=== PATIENT | female | born 1950 | race Caucasian/White ===

== ENCOUNTER → 2018-06-18 08:23 | Outpatient (CLI) | payer OTHER, SELFPAY ==
[2018-06-18 09:35] LABS: Add Manual Diff / Slide Review NO; Basophils Percent Auto 0.4 % (0-2); Eosinophils Percent Auto 2.9 % (2-4); Hematocrit 38.1 % (36-46); Hemoglobin 13.2 g/dL (12.0-16.0); Lymphocytes Percent Auto 31.5 % (25-40); Mean Corpuscular HGB Conc 34.7 % (30-36); Mean Corpuscular Hemoglobin 31.6 PG (26-34); Monocytes Percent Auto 7.3 % (3-14); Neutrophils Absolute Auto 2900 /uL (3000-5900); Neutrophils Percent Auto 57.9 % (50-75); Platelet Count 219 X10^3/uL (150-400); Red Blood Cell Count 4.19 X10^6/uL (4.0-5.2); Red Cell Distribution Width 12.4 % (11.6-14.8); White Blood Cell Count 4.9 X10^3/uL (4.5-11.0)
[2018-06-18 09:48] LABS: Alanine Aminotransferase 41 IU/L (9-52); Albumin 4.3 g/dL (3.5-5.0); Albumin Globulin Ratio 1.7 (1.0-2.8); Alkaline Phosphatase 67 U/L (38-126); Aspartate Aminotransferase 38 IU/L (14-36); Bilirubin Total 0.7 mg/dL (0.2-1.3); Blood Urea Nitrogen 22 mg/dL (7-17); Calcium 9.4 mg/dL (8.4-10.2); Carbon Dioxide 29 mmol/L (22-32); Chloride 106 mmol/L (98-107); Cholesterol 134 mg/dL (140-199); Estimated Glomerular Filt Rate 55.5 mL/min (>60); Globulin 2.5 g/dL (1.7-4.1); Glucose 102 mg/dL (80-110); HDL Cholesterol 41 mg/dL (40-60); HEMOLYSIS < 15 (0-50); LDL Cholesterol Calculated 72 mg/dL (<100); Potassium 3.6 mmol/L (3.4-5.1); Sodium 145 mmol/L (137-145); Total Protein 6.8 g/dL (6.3-8.2); Triglycerides 107 mg/dL (35-150)
[2018-06-18 10:32] LABS: TSH w/ Reflex to FT4 2.62 uIU/mL (0.47-4.68)
== END ==
PROVIDERS: PCP Internal Medicine; Visit Provider Internal Medicine
DX: I10 Essential (primary) hypertension (principal); E78.00 Pure hypercholesterolemia, unspecified; K21.0 Gastro-esophageal reflux disease with esophagitis
CPT/HCPCS: 36415; 80053; 80061; 84443; 85025

== ENCOUNTER → 2018-07-23 08:18 | Outpatient (CLI) | payer OTHER, SELFPAY ==
[2018-07-23 10:06] LABS: Alanine Aminotransferase 34 IU/L (9-52); Albumin 4.4 g/dL (3.5-5.0); Albumin Globulin Ratio 1.8 (1.0-2.8); Alkaline Phosphatase 68 U/L (38-126); Aspartate Aminotransferase 30 IU/L (14-36); Bilirubin Total 0.7 mg/dL (0.2-1.3); Bilirubin Unconjugated 0.5 mg/dL (0.0-1.1); Globulin 2.4 g/dL (1.7-4.1); HEMOLYSIS < 15 (0-50); Total Protein 6.8 g/dL (6.3-8.2)
== END ==
PROVIDERS: Family Provider Internal Medicine; PCP Internal Medicine; Visit Provider Internal Medicine
DX: R74.8 Abnormal levels of other serum enzymes (principal)
CPT/HCPCS: 36415; 80076

== ENCOUNTER → 2018-07-27 09:58 | Outpatient (CLI) | payer OTHER, SELFPAY ==
--- NOTE | 2018-07-27 | DI.RAD.S_ITS ---
PROCEDURE: XR HIP W PEL IF DONE BILAT 2V INDICATIONS: PAIN IN HIP TECHNIQUE: AP pelvis with lateral view(s) of the left and right hip(s). COMPARISON: None. FINDINGS: Bones: No fractures or dislocations. Pelvic ring appears intact. No suspicious bony lesions. Hip joints are well-maintained. Soft tissues: The visualized bowel gas pattern is normal. No suspicious soft tissue calcifications. IMPRESSION: No definite radiographic abnormality. If pain persists, consider cross sectional imaging such as CT or MRI for further assessment. Dictated by: Santo CASTANEDA Interpreted: Kaleigh Shin MD on 07/27/2018 at 10:38 Approved by: Kaleigh Shin M.D. on 07/27/2018 at 14:40
== END ==
PROVIDERS: Family Provider Physical Therapist; PCP Internal Medicine; Visit Provider Internal Medicine
DX: M25.559 Pain in unspecified hip (principal)
CPT/HCPCS: 73521

== ENCOUNTER → 2018-08-08 12:45 | Outpatient (CLI) | payer OTHER, SELFPAY ==
--- NOTE | 2018-08-08 | DI.MRI.S_ITS ---
PROCEDURE: MR LUMBAR SPINE WO CON INDICATIONS: LUMBAR STENOSIS TECHNIQUE: Noncontrast sagittal T1 spin echo and T2 fast echo, sagittal STIR, axial T1 and T2 fast spin echo through the lumbar spine. In cases with scoliosis, additional coronal T2 fast spin echo may be performed. COMPARISON: None. FINDINGS: Image quality: Excellent. Alignment and Curvature: No plain films are available for comparison, for numbering purposes. Thus, for the purposes of this examination, 5 lumbar type vertebral bodies will be presumed, as denoted on the montage panel. This should be confirmed and correlated with plain films, prior to any lumbar spinal intervention. Bone Marrow: Marrow is of normal overall signal. No acute vertebral body compression fractures. Spinal Cord: Conus medullaris terminates at the upper L2 level. Visualized cord demonstrates normal signal and size. Paraspinous Soft Tissues: No paravertebral masses. Bilateral parapelvic renal cysts are present. L1-L2: Mild disc desiccation. Mild bilateral facet hypertrophy. No significant canal, nor foraminal stenosis. L2-L3: Mild disc desiccation. Mild bilateral facet hypertrophy. No significant canal, nor foraminal stenosis. L3-L4: Mild disc desiccation. Mild bilateral facet hypertrophy. No significant canal, nor foraminal stenosis. L4-L5: Mild disc desiccation. Mild bilateral facet hypertrophy. No significant canal, nor foraminal stenosis. L5-S1: Mild disc desiccation and diffuse disc bulge. Mild bilateral facet hypertrophy. No significant canal, nor foraminal stenosis. IMPRESSION: 1. Multilevel degenerative disc and facet disease, causing no significant canal, nor foraminal stenosis. No neural impingement. 2. 5 lumbar type vertebral bodies were presumed for the current report. Plain films of the lumbar spine are recommended for confirmation, prior to any lumbar spinal intervention. Dictated by: Chasity Silva M.D. on 08/08/2018 at 14:29 Approved by: Chasity Silva M.D. on 08/08/2018 at 14:31
== END ==
PROVIDERS: PCP Internal Medicine; Visit Provider Internal Medicine
DX: M51.36 Other intervertebral disc degeneration, lumbar region (principal); N28.1 Cyst of kidney, acquired
CPT/HCPCS: 72148

== ENCOUNTER → 2018-12-22 08:18 | Outpatient (CLI) | payer OTHER, SELFPAY ==
--- NOTE | 2018-12-22 | DI.MG.S_ITS ---
BILATERAL DIGITAL SCREENING MAMMOGRAM 3D/2D WITH CAD: 12/22/2018 CLINICAL: Routine screening. Family history of breast cancer. Comparison is made to exams dated: 12/07/2017 mammogram - [facility] and 03/20/2015 mammogram - [facility]. The tissue of both breasts is heterogeneously dense. This may lower the sensitivity of mammography. Current study was also evaluated with a Computer Aided Detection (CAD) system. There are benign post operative findings in the left breast. There is a mole marker on the right breast. No significant masses, calcifications, or other findings are seen in either breast. There has been no significant interval change. IMPRESSION: There is no mammographic evidence of malignancy. A 1 year screening mammogram is recommended. This exam was interpreted at Station ID: [id number]. NOTE: For mammograms, a report in lay terms will be sent to the patient. Approximately 15% of breast malignancies will not be visualized mammographically. In the management of a palpable breast mass, a negative mammogram must not discourage biopsy of a clinically suspicious lesion. Electronically Signed By: Imtiaz oliver/ritu:12/24/2018 10:26:42 letter sent: Normal Exam ACR BI-RADS Category 2: Benign Finding(s) 3342F
== END ==
PROVIDERS: PCP Internal Medicine; Visit Provider Internal Medicine
DX: Z12.31 Encounter for screening mammogram for malignant neoplasm of breast (principal); Z80.3 Family history of malignant neoplasm of breast
CPT/HCPCS: 77063; 77067

== ENCOUNTER → 2019-05-15 08:05 | Outpatient (CLI) | payer OTHER, SELFPAY ==
[2019-05-15 08:51] LABS: Alanine Aminotransferase 41 IU/L (9-52); Albumin 4.3 g/dL (3.5-5.0); Albumin Globulin Ratio 1.7 (1.0-2.8); Alkaline Phosphatase 83 U/L (38-126); Aspartate Aminotransferase 33 IU/L (14-36); Bilirubin Total 0.9 mg/dL (0.2-1.3); Blood Urea Nitrogen 25 mg/dL (7-17); Carbon Dioxide 26 mmol/L (22-32); Chloride 104 mmol/L (98-107); Cholesterol 195 mg/dL (140-199); Estimated Glomerular Filt Rate 55.3 mL/min (>60); Globulin 2.6 g/dL (1.7-4.1); Glucose 110 mg/dL (80-110); HDL Cholesterol 59 mg/dL (40-60); HEMOLYSIS < 15 (0-50); LDL Cholesterol Calculated 101 mg/dL (<100); Potassium 4.5 mmol/L (3.4-5.1); Sodium 140 mmol/L (137-145); Total Protein 6.9 g/dL (6.3-8.2); Triglycerides 173 mg/dL (35-150)
== END ==
PROVIDERS: PCP Internal Medicine; Visit Provider Internal Medicine
DX: I10 Essential (primary) hypertension (principal); E78.00 Pure hypercholesterolemia, unspecified; M15.0 Primary generalized (osteo)arthritis
CPT/HCPCS: 36415; 80053; 80061

== ENCOUNTER → 2020-01-20 10:47 | Outpatient (CLI) | payer OTHER, SELFPAY ==
[2020-01-20 12:02] LABS: BUN Creatinine Ratio 24.6 (6-22); Blood Urea Nitrogen 30 mg/dL (7-17); Calcium 9.5 mg/dL (8.4-10.2); Carbon Dioxide 26 mmol/L (22-32); Chloride 103 mmol/L (98-107); Estimated Glomerular Filt Rate 43.8 mL/min (>60); Glucose 105 mg/dL (80-110); HEMOLYSIS < 15 (0-50); Potassium 3.7 mmol/L (3.4-5.1); Sodium 137 mmol/L (137-145)
== END ==
PROVIDERS: PCP Internal Medicine; Referring Provider Student in an Organized Health Care Education/Training Program; Visit Provider Student in an Organized Health Care Education/Training Program
DX: I10 Essential (primary) hypertension (principal)
CPT/HCPCS: 36415; 80048

== ENCOUNTER → 2020-02-27 14:26 | Outpatient (CLI) | payer OTHER, SELFPAY ==
--- NOTE | 2020-02-27 | DI.MG.S_ITS ---
BILATERAL DIGITAL SCREENING MAMMOGRAM 3D/2D WITH CAD: 02/27/2020 CLINICAL: Routine screening. Family history of breast cancer. Comparison is made to exams dated: 12/07/2017 mammogram - [facility], 03/20/2015 mammogram - [facility], and 12/22/2018 mammogram - [facility]. The tissue of both breasts is heterogeneously dense. This may lower the sensitivity of mammography. Current study was also evaluated with a Computer Aided Detection (CAD) system. There are benign post operative findings in the left breast. No significant masses, calcifications, or other findings are seen in either breast. There has been no significant interval change. IMPRESSION: There is no mammographic evidence of malignancy. A 1 year screening mammogram is recommended. This exam was interpreted at Station ID: [id number]. NOTE: For mammograms, a report in lay terms will be sent to the patient. Approximately 15% of breast malignancies will not be visualized mammographically. In the management of a palpable breast mass, a negative mammogram must not discourage biopsy of a clinically suspicious lesion. Electronically Signed By: Mansoor lewis/ritu:02/27/2020 15:05:34 copy to: Carmencita Ordaz letter sent: Normal Exam ACR BI-RADS Category 2: Benign Finding(s) 3342F
[2020-02-27 17:42] LABS: BUN Creatinine Ratio 19.7 (6-22); Blood Urea Nitrogen 25 mg/dL (7-17); Calcium 9.7 mg/dL (8.4-10.2); Carbon Dioxide 27 mmol/L (22-32); Chloride 102 mmol/L (98-107); Estimated Glomerular Filt Rate 41.8 mL/min (>60); Glucose 88 mg/dL (80-110); HEMOLYSIS < 15 (0-50); Potassium 3.9 mmol/L (3.4-5.1); Sodium 138 mmol/L (137-145)
== END ==
PROVIDERS: PCP Internal Medicine; Referring Provider Internal Medicine; Visit Provider Internal Medicine
DX: Z12.31 Encounter for screening mammogram for malignant neoplasm of breast (principal); Z80.3 Family history of malignant neoplasm of breast; I10 Essential (primary) hypertension
CPT/HCPCS: 36415; 77063; 77067; 80048

== ENCOUNTER → 2021-03-02 10:48 | Outpatient (CLI) | payer OTHER, SELFPAY ==
--- NOTE | 2021-03-02 | DI.MG.S_ITS ---
BILATERAL DIGITAL SCREENING MAMMOGRAM 3D/2D WITH CAD: 03/02/2021 CLINICAL: Routine screening. Family history of breast cancer. Comparison is made to exams dated: 02/27/2020 mammogram, 12/22/2018 mammogram, and 12/07/2017 mammogram - [facility]. The tissue of both breasts is heterogeneously dense. This may lower the sensitivity of mammography. Current study was also evaluated with a Computer Aided Detection (CAD) system. There are benign post operative findings in the left breast. No significant masses, calcifications, or other findings are seen in either breast. There has been no significant interval change. IMPRESSION: BENIGN There is no mammographic evidence of malignancy. A 1 year screening mammogram is recommended. This exam was interpreted at Station ID: [id number]. NOTE: For mammograms, a report in lay terms will be sent to the patient. Approximately 15% of breast malignancies will not be visualized mammographically. In the management of a palpable breast mass, a negative mammogram must not discourage biopsy of a clinically suspicious lesion. Electronically Signed By: Florian melo/ritu:03/02/2021 14:44:48 copy to: Carmencita Ordaz letter sent: Normal Exam ACR BI-RADS Category 2: Benign Finding(s) 3342F
== END ==
PROVIDERS: PCP Internal Medicine; Referring Provider Internal Medicine; Visit Provider Internal Medicine
DX: Z12.31 Encounter for screening mammogram for malignant neoplasm of breast (principal)
CPT/HCPCS: 77063; 77067

== ENCOUNTER → 2021-03-03 09:38 | Outpatient (CLI) | payer OTHER, SELFPAY | PROVIDERS: PCP Student in an Organized Health Care Education/Training Program; Referring Provider Student in an Organized Health Care Education/Training Program; Visit Provider Student in an Organized Health Care Education/Training Program | DX: N95.9 Unspecified menopausal and perimenopausal disorder (principal) | CPT/HCPCS: 77080 ==

== ENCOUNTER → 2021-12-23 09:57 | Outpatient (CLI) | payer OTHER, SELFPAY ==
--- NOTE | 2021-12-23 10:55 | DI.CT.S_ITS ---
PROCEDURE: CT ABDOMEN PELVIS W CON INDICATIONS: Nausea TECHNIQUE: After the administration of oral and IV contrast, axial sections were acquired from the lung bases to the pubic symphysis. Coronal and sagittal reformats were performed. For radiation dose reduction, the following was used: automated exposure control, adjustment of mA and/or kV according to patient size. COMPARISON: None. FINDINGS: Image quality: Excellent. Lung bases: Lung bases are clear. Small hiatal hernia. Heart: No significant findings. ABDOMEN: Liver: Normal in size. Mild hepatic steatosis. Gallbladder: Unremarkable. Biliary ducts: Unremarkable. Pancreas: Unremarkable. Spleen: Unremarkable. Adrenal Glands: Unremarkable. Kidneys and Ureters: There is bilateral renal cortical thinning. There are innumerable ill-defined tiny low-density nodules are seen in kidneys, most likely cyst. There is a 3 mm nonobstructive stone in left kidney. Parapelvic renal cysts are likely present no ureteral stones. No definitive hydronephrosis. Stomach and Bowel: There is gastric antral thickening Small bowel loops, and colon are normal in caliber. Diverticulosis without diverticulitis. Peritoneum: No abnormal intraperitoneal fluid. No free air. Ventral Wall: No hernia. Abdominal Nodes: No retroperitoneal or mesenteric adenopathy by size criteria. Vessels: Aorta and inferior vena cava are normal in size. PELVIS: Pelvic Organs: Hysterectomy. Ovaries are not visualized. No free fluid in pelvis. Bladder: Unremarkable. Pelvic Nodes: No enlarged lymph nodes. Miscellaneous: No inguinal hernias are seen. Bones: Unremarkable. IMPRESSION: 1. There is gastric antral thickening. The finding may be secondary to peptic ulcer disease, gastritis or artifact related to peristalsis. 2. Bilateral renal cortical thinning. There are innumerable ill-defined tiny low-density nodules are seen in kidneys, probably tiny renal cysts. There are parapelvic renal cysts bilaterally. 3. A 3 mm nonobstructive stone in left kidney. No hydronephrosis. 4. Hepatic steatosis. 5. Diverticulosis without diverticulitis. 6. Small hiatal hernia. Dictated by: Rajesh Salcedo M.D. on 12/23/2021 at 13:39 Approved by: Rajesh Salcedo M.D. on 12/23/2021 at 16:45
== END ==
PROVIDERS: PCP Student in an Organized Health Care Education/Training Program; Referring Provider Student in an Organized Health Care Education/Training Program; Visit Provider Student in an Organized Health Care Education/Training Program
DX: N20.0 Calculus of kidney (principal); N28.1 Cyst of kidney, acquired; K57.90 Diverticulosis of intestine, part unspecified, without perforation or abscess without bleeding; K44.9 Diaphragmatic hernia without obstruction or gangrene; K76.0 Fatty (change of) liver, not elsewhere classified; R11.0 Nausea; E87.6 Hypokalemia; I10 Essential (primary) hypertension; R14.0 Abdominal distension (gaseous)
CPT/HCPCS: 74177; Q9967

== ENCOUNTER → 2022-05-14 09:07 | Outpatient (CLI) | payer OTHER, SELFPAY ==
--- NOTE | 2022-05-14 | DI.MG.S_ITS ---
BILATERAL DIGITAL SCREENING MAMMOGRAM 3D/2D WITH CAD: 05/14/2022 CLINICAL: Routine screening. Family history of breast cancer. Comparison is made to exams dated: 03/02/2021 mammogram, 02/27/2020 mammogram, and 12/22/2018 mammogram - [facility]. The tissue of both breasts is heterogeneously dense. This may lower the sensitivity of mammography. Current study was also evaluated with a Computer Aided Detection (CAD) system. There are benign post operative findings in the left breast. No significant masses, calcifications, or other findings are seen in either breast. There has been no significant interval change. IMPRESSION: BENIGN There is no mammographic evidence of malignancy. A 1 year screening mammogram is recommended. Based on the Tyrer Cuzick model (a risk assessment model) the patient's lifetime risk is 6.7% and her 10 year risk is 4.2%. According to the ACR, ACS, and NCCN guidelines, an annual breast MRI exam along with mammogram is recommended if the patient's lifetime risk is 20% or greater. This exam was interpreted at Station ID: [id number]. NOTE: For mammograms, a report in lay terms will be sent to the patient. Approximately 15% of breast malignancies will not be visualized mammographically. In the management of a palpable breast mass, a negative mammogram must not discourage biopsy of a clinically suspicious lesion. Electronically Signed By: Renee bell/ritu:05/16/2022 08:11:13 letter sent: Normal Exam ACR BI-RADS Category 2: Benign Finding(s) 3342F
== END ==
PROVIDERS: PCP Student in an Organized Health Care Education/Training Program; Referring Provider Student in an Organized Health Care Education/Training Program; Visit Provider Student in an Organized Health Care Education/Training Program
DX: Z12.31 Encounter for screening mammogram for malignant neoplasm of breast (principal); Z80.3 Family history of malignant neoplasm of breast
CPT/HCPCS: 77063; 77067

== ENCOUNTER → 2022-06-20 09:05 | Outpatient (CLI) | payer OTHER, SELFPAY ==
[2022-06-20 12:56] LABS: COVID19 -Nasal RAPID Negative (Negative)
== END ==
PROVIDERS: PCP Student in an Organized Health Care Education/Training Program; Visit Provider Surgery
DX: Z01.812 Encounter for preprocedural laboratory examination (principal); Z20.822 Contact with and (suspected) exposure to COVID-19
CPT/HCPCS: 87635; C9803

== ENCOUNTER 2022-06-21 07:23 | Day surgery (SDC) | payer OTHER, SELFPAY ==
[2022-06-21 07:38] VITALS: BMI 24.5
[2022-06-21] MEDS: LACTATED RINGERS 1,000 ML 200 ML IV (07:50)
[2022-06-21 07:51] VITALS: BP 130/69; PULSE 67; RESP 16; TEMP 36.6; O2SAT 98
--- NOTE | 2022-06-21 08:32 | PM.HP.1 ---
History of Present Illness History of Present Illness Date Patient Seen: 06/21/22 Time Patient Seen: 08:32 Chief complaint: Colonoscopy Narrative: The patient presents for colorectal screening. Previous colonoscopy approximately 5 years ago did demonstrate benign polyps. Family history significant for father who had colon cancer.. She has recently been experiencing some abdominal bloating no ron pain no blood per rectum small unintentional weight loss. Patient History Surgical History History of hysterectomy Family & Social History Social History: household members spouse Tobacco & Substance use: Smoking Status Never smoker alcohol intake current alcohol intake frequency a few times a week Substance Use Type does not use Meds Home Medications and Allergies Home Medications Medication Instructions Recorded Confirmed Type hydrochlorothiazide 25 mg tablet 12.5 mg PO QDAY ##0 07/17/17 06/21/22 History potassium chloride 8 mEq 10 meq PO DAILY ##0 07/17/17 06/21/22 History tablet,extended release (Klor-Con) rosuvastatin 10 mg tablet (Crestor) 10 mg PO DAILY ##0 07/17/17 06/21/22 History estradiol 0.5 mg tablet 0.5 mg PO DAILY 06/21/22 06/21/22 History losartan 50 mg tablet 50 mg PO DAILY 06/21/22 06/21/22 History metronidazole 0.75 % topical cream 1 applic topical BID 06/21/22 06/21/22 History Allergies Allergy/AdvReac Type Severity Reaction Status Date / Time Sulfa (Sulfonamide Allergy Intermediate GENERAL Verified 06/21/22 07:35 Antibiotics) ILL FEELING [SULFA (SULFONAMIDE ANTIBIOTICS)] Exam Vital Signs (past 8 hours): - 06/21/22 07:51 Temperature 97.9 F Pulse Rate 67 Respiratory Rate 16 Blood Pressure 130/69 Pulse Oximetry 98 Oxygen Delivery Method Room Air Oxygen Delivery Method Room Air Narrative Exam Narrative: General adult woman alert oriented no acute distress Assessment & Plan Assessment & Plan narrative: The patient requires colorectal screening and colonoscopy is recommended. Technical details were discussed. Risks, benefits, alternatives explained. Risks including but not limited to myocardial infarction, aspiration, bleeding, pain, missed lesion, incomplete examination, need for further radiographic studies, colonic perforation, and need for major abdominal surgery were discussed. All questions were answered to their satisfaction, and they are in agreement with this plan. Time Spent With Patient Critical Care time: I spent a total of [] minutes of critical care time on this patient's care today; this time is exclusive of procedural time.
[2022-06-21] MEDS: fentaNYL 100 MCG/2 ML INJ 150 MCG IV (08:39)
[2022-06-21] MEDS: MIDAZOLAM 5 MG/5 ML VIAL IV (08:45)
--- NOTE | 2022-06-21 08:55 | P.OP.COLON_ITS ---
Operative Date/Time/Diagnoses Date of procedure: 06/21/22 Time of procedure: 08:55 Pre-op diagnosis: Screening Post-op diagnosis: other (Colonic stricture) Procedure & Clinicians Study performed: Sigmoidoscopy Same procedure as scheduled: No Indications: 71-year-old woman here for screening colonoscopy. Family history of colon cancer in first-degree relative. Recent bloating. Procedure Notes Procedure in detail: Medications: Conscious sedation using 5mg IV midazolam and 150mcg IV of fentanyl The history and physical was performed/updated and the patient is ASA class is 2. The procedure was discussed in detail with the patient. Potential risks complications including infection, bleeding, missed diagnosis, perforation, need for surgery, and were explained. Their questions were answered and informed consent was obtained. Patient was brought to the procedure room and placed standard monitoring equipment. The patient's vital signs were monitored continuously throughout the entire procedure. Prior to starting time-out was performed. The patient was placed in the left lateral recumbent position. Procedural sedation was administered. Examination began with a thorough inspection of the perianal area there was no evidence of fissures, fistulae, external hemorrhoids or cutaneous malignancy. The colonoscopy scope was then placed into the anal canal and was advanced forward. There was noted diverticular disease within the sigmoid co israel. Approaching 40 cm from the anal verge, the colon became quite narrow and no further safe progress could be made beyond 40 cm. The distal extent of the exam was marked with tattoo. The scope was carefully withdrawn there were no masses identified. Specimen(s): none sent Complications: none Impression: Colonic stricture Post-procedure Plan for aftercare: Barium enema Disposition: same day surgery
[2022-06-21 08:57] VITALS: BP 117/66; PULSE 72; RESP 11; TEMP 36.4; O2SAT 95
[2022-06-21 09:02] VITALS: BP 107/58; PULSE 65; RESP 11; O2SAT 94
[2022-06-21 09:12] VITALS: BP 116/63; PULSE 71; RESP 12; O2SAT 96
[2022-06-21 09:17] VITALS: BP 119/62; PULSE 71; RESP 13; O2SAT 97
== END 2022-06-21 09:35 | disposition home or self-care (01) ==
PROVIDERS: PCP Student in an Organized Health Care Education/Training Program; Referring Provider Surgery; Visit Provider Surgery
PROC: 0DJD8ZZ Inspection of Lower Intestinal Tract, Via Natural or Artificial Opening Endoscopic (ICD-10-PCS; CPT 45378; principal; 2022-06-21 08:30)
DX: Z12.11 Encounter for screening for malignant neoplasm of colon (principal); Z80.0 Family history of malignant neoplasm of digestive organs; K56.699 Other intestinal obstruction unspecified as to partial versus complete obstruction
CPT/HCPCS: 45335; J2250; J3010

== ENCOUNTER → 2022-07-20 09:33 | Outpatient (CLI) | payer OTHER, SELFPAY ==
--- NOTE | 2022-07-20 09:34 | DI.RAD.S_ITS ---
PROCEDURE: FL BARIUM ENEMA INDICATIONS: r/o colonic stricture. Incomplete colonoscopy COMPARISON: None. FINDINGS: KUB: Preprocedural inspector and hand packager film demonstrates a normal bowel gas pattern. No suspicious abdominal calcifications. Visualized solid organ contours appear normal in size. No suspicious bony lesions. Colon: Post evacuation film demonstrates two areas of narrowing in the proximal sigmoid colon which were also present during the filling phase. These have a non shouldered appearance suggestive of a possible stricture as opposed to mass, although an underlying small lesion cannot be strictly excluded. Extensive sigmoid and ascending colonic diverticulosis. IMPRESSION: Extensive sigmoid and ascending colonic diverticulosis. Tortuous and redundant sigmoid colon, with two areas of potential stricture or narrowing on the post evacuation film in the proximal sigmoid colon. Consider repeat colonoscopy versus CT colonography for further evaluation. Dictated by: Jose Agarwal M.D. on 07/20/2022 at 15:24 Approved by: Jose Agarwal M.D. on 07/20/2022 at 15:29
== END ==
PROVIDERS: PCP Student in an Organized Health Care Education/Training Program; Referring Provider Surgery; Visit Provider Surgery
DX: Z12.11 Encounter for screening for malignant neoplasm of colon (principal); K57.30 Diverticulosis of large intestine without perforation or abscess without bleeding
CPT/HCPCS: 74270

== ENCOUNTER → 2022-10-11 09:13 | Outpatient (CLI) | payer OTHER, SELFPAY ==
[2022-10-11 11:36] LABS: COVID19 -Nasal RAPID Negative (Negative)
== END ==
PROVIDERS: PCP Student in an Organized Health Care Education/Training Program; Visit Provider Surgery
DX: Z01.812 Encounter for preprocedural laboratory examination (principal); Z20.822 Contact with and (suspected) exposure to COVID-19
CPT/HCPCS: 87635

== ENCOUNTER 2022-10-12 06:32 | Inpatient (IN) | payer OTHER, SELFPAY ==
[2022-10-04 09:48] VITALS: BMI 24.9
[2022-10-12] VITALS (14 sets, daily range): BP systolic 89–144; BP diastolic 45–70; PULSE 73–98; RESP 11–20; TEMP 36.1–36.8; O2SAT 91–100; BMI 24.9
--- NOTE | 2022-10-12 | PATH_ITS ---
[facility] Accession Number: [id number] No. of containers..02 Tissue . 01 Material submitted: . PART A: colon - SIGMOID COLON PART B: anastomosis - ANASTOMOTIC DONUT . 01 Clinical history: . LAB ASSIST COLECTOMY . 01 Diagnosis: A. Sigmoid Colon, Segmental Resection: Colonic segment with prominent folds and diverticulosis. Negative for active, chronic and microscopic colitis. Negative for dysplasia and malignancy. . B. Anastomotic Donut: Colon with patchy mucosal ischemia-type changes. Negative for dysplasia and malignancy. MR 10/14/2022 1519 Local . 01 Electronically signed: . Love Blackwood MD, Pathologist NPI- [id number] . 01 Gross description: . A. Received in formalin labeled with the patient's name, and sigmoid colon, stitch marked proximal end, and consists of a previously opened segment of colon with a stitch at one end designating proximal per the requisition. The specimen measures 12.1 cm in length by 3.5 cm in average circumference. The visible serosa is chan and smooth with no grossly identified perforations with a moderate amount of attached adipose measuring out to 4.4 cm. The proximal margin is inked blue, the distal margin is inked black, and the mesenteric margin is inked green. Due to the specimen being previously opened, no areas of luminal obstruction are grossly identified; however, there is an area of narrowing approximately 4.5 cm from the distal margin. The mucosa is significant for a chan raised firm area measuring 1.2 x 0.8 cm and is widely free from all margins. Sectioning reveals the aforementioned nodule to appear to be a prominent fold. The remaining mucosa is chan and velvety with normal appearing folds and multiple diverticula measuring up to 0.8 cm in depth, most numerous near the distal margin. No additional polyps or lesions are identified. The damon average 0.3 cm thick. Palpation of the pericolonic fat reveals three chan lymph node candidates ranging from 0.3 to 0.5 cm in greatest dimension. Crate Liner sections are submitted as follows: A1: Proximal margin en face. A2: Distal margin en face. A3: Crate Liner radial margin en face. A4: Prominent fold. A5: Crate Liner diverticula. A6: Normal mucosa. A7: Three intact lymph node candidates. B. Received in formalin labeled with the patient's name, and anastomotic donut, and consists of a circular fragment of colon measuring 2.3 x 2.2 x 0.8 cm. A purple stitch is located at one edge with no designation per the requisition. The mucosa is chan and erythematous with no lesions grossly identified. Crate Liner sections are submitted in cassette B1. ([id number]) /MRV 10/13/2022 123 Local . 01 Pathologist provided ICD-10: K56.699 . 01 CPT . 197416, [id number] Specimen Comment: A courtesy copy of this report has been sent to [phone] Performed at: 01 [facility] [address] [place] [address] [address] [facility], [place], [place] [id number] MD Florian Treviño MD Phone: [phone]
[2022-10-12] MEDS: LACTATED RINGERS 1,000 ML 100 ML IV ×3 (07:38→11:58)
--- NOTE | 2022-10-12 07:45 | PM.PREOP ---
Pre-operative Note Interval Note History & Physical reviewed/Exam performed by Physician: Yes Changes to H&P: No
[2022-10-12] MEDS: levoFLOXacin 500 MG/100 ML PIGGYBACK 100 MG IV (08:05)
[2022-10-12] MEDS: BUPIVACAINE 0.5% W/ EPI (PF) 30 ML VIAL INJ (08:31)
--- NOTE | 2022-10-12 08:34 | SUR.OPER ---
Lithotomy on padded OR bed. Starks Pad Positioner under torso. Head on pillow, arms padded and tucked at sides. Legs secured in padded yellow fins stirrups.
[2022-10-12] MEDS: BUPIVACAINE LIPOSOME 266 MG/20 ML VIAL INJ (10:22)
--- NOTE | 2022-10-12 10:59 | P.OP_ITS ---
Operative Date/Time/Diagnoses Date of procedure: 10/12/22 Time of procedure: 10:59 Pre-op diagnosis: diverticular stricture Post-op diagnosis: same Procedure & Clinicians Procedure: laparoscopic assisted sigmoid colectomy Same procedure as scheduled: Yes Indications: diverticular stricture Surgeon: Ismael Gilbert Electrical Prospecting Supervisor: Ericka Leahy Anesthesia Type: General Operative Notes Findings: Negative leak test. No evidence of malignancy Specimen(s): other (sigmoid colon proximal end with stitch. Anastamotic donouts) Estimated Blood Loss (mL): 20 Procedure in detail: The patient was brought to the operating room and placed supine on the table. Bilateral lower extremity compression devices were applied. General anesthesia was induced and they were intubated with an endotracheal tube. They were placed in the lithotomy position and prepped and draped in sterile fashion. A smith catheter was placed under sterile condition. They received Levaquin prior to skin incision. Time-out was performed. An infraumbilical 1 cm incision was made, the umbilical stalk was elevated, the fascia was sharply incised and the abdomen was entered atraumatically. Pneumoperitoneum was established. The laparoscope was inserted into the abdomen, inspection was made there was no evidence of injury upon entry. 5 mm ports were placed suprapubic, right upper quadrant and a 12 mm trocar in the right lower quadrant. There were significant adhesions between the the sigmoid colon and the left pelvic sidewall which was causing external compression of the colon and were divided with with electrocautery. A lateral to medial approach was begun. Dissection was continued superiorly along the white line of Toldt to the splenic flexure. The left ureter was clearly identified by its vermiculation. The sigmoid mesocolon was then divided with electrocautery staying close to the colon with the ureter kept posteriorly out of harm's way. The proximal point of colonic division was chosen and the junction between the descending colon and sigmoid colon where the tissue was soft and pliable. The mesentery at this point was skeletonized to the level of bowel wall. The colon was divided with the TA stapler with a bowel staple load. The distal point of transection was the rectosigmoid junction where the bowel was soft and pliable near the convergence of the tenia. The distal transection was made with TA stapler with a bowel staple load. The specimen was passed off the field labeled sigmoid colon proximal end was marked with a silk suture. Sigmoid colon was opened on the back table and there was no evidence of malignancy within it there was an area of stricture noted. A bowel clamp was placed carefully over the proximal colon and the staple line was excised. A 3-0 Prolene suture was pursestrung and a 29 mm EEA anvil was placed. The abdomen was then reinflated and the anvil and stapler were mated under direct visualization and the anastomosis was completed without tension. The stapler was removed and inspection of the anastomotic donuts demonstrated a normal proximal and distal doughnut. The proximal bowel was occluded, the pelvis filled with saline and insufflation of the rectum demonstrated no leak. The abdomen was copiously irrigated and hemostasis checked. The midline fascia was closed with #1 PDS running fashion. The subcutaneous tissues were reapproximated using 3 0 Vicryl, skin closed with 3-0 Monocryl. The fascia of the 12 mm trocar site in the right lower quadrant was closed with 0 Vicryl in figure 8 fashion. The laparoscopic port incisions were closed with 4-0 Monocryl. The skin was sealed with Dermabond. The sponge instrument count at the end of the operation was correct. The patient emerged from general anesthesia, extubated and transferred to the postoperative care unit in stable condition. The assistance of Dr. Leahy was necessary for adequate surgical exposure and the creation of the anastomosis. Complications: none Post-operative Condition: stable Disposition: Acute Care
--- NOTE | 2022-10-12 11:26 | SUR.PHASEI ---
Report called to [facility].
--- NOTE | 2022-10-12 11:43 | PC.NURSE ---
Day shift: Pt in room from PACU at approx 1145. VS WNL. Ra 94%. Encouraged to use I.S. as directed. Pt is A&Ox4. Reports ABD pain 2/. Oriented to room and call light. AGrees to not get OOB w/o help from staff. Bed alarm is on.
[2022-10-12] MEDS: PIPERACILLIN/TAZO 3.375 GM in SODIUM CHLORIDE 0.9% 100 ML IV ×2 (12:10→19:59)
[2022-10-12] MEDS: SODIUM CHLORIDE 0.9% 1,000 ML 100 ML IV ×2 (15:15→21:52)
--- NOTE | 2022-10-12 17:14 | PT-IP ANOTE ---
PT haley received. EMR reviewed. checked on pt and pt refused PT. stated that she is not ready and not able to think right at this time. pt agreed to provide PLOF and home set up.
[2022-10-12] MEDS: ACETAMINOPHEN 325 MG TABLET 650 MG PO (19:58)
[2022-10-12] MEDS: OXYCODONE IR 5 MG TABLET PO ×2 (19:59→23:17)
[2022-10-13] MEDS: PIPERACILLIN/TAZO 3.375 GM in SODIUM CHLORIDE 0.9% 100 ML IV (03:21)
[2022-10-13] MEDS: ACETAMINOPHEN 325 MG TABLET 650 MG PO ×3 (03:30→17:07)
[2022-10-13 06:05] VITALS: BP 123/50; PULSE 65; RESP 16; TEMP 36.3; O2SAT 93
[2022-10-13 08:01] LABS: Add Manual Diff / Slide Review NO; Basophils Absolute Auto 0 /uL (0-100); Basophils Percent Auto 0.1 % (0-2); Eosinophils Absolute Auto 0 /uL (0-450); Hematocrit 33.1 % (36-46); Hemoglobin 11.5 g/dL (12.0-16.0); Lymphocytes Absolute Auto 700 /uL (1100-4500); Lymphocytes Percent Auto 5.4 % (25-40); Mean Corpuscular HGB Conc 34.6 % (30-36); Mean Corpuscular Hemoglobin 31.4 PG (26-34); Mean Corpuscular Volume 90.9 fL (80-100); Monocytes Absolute Auto 700 /uL (0-900); Monocytes Percent Auto 5.4 % (3-14); Neutrophils Absolute Auto 12100 /uL (1500-7000); Neutrophils Percent Auto 89.1 % (50-75); Platelet Count 195 X10^3/uL (150-400); Red Blood Cell Count 3.65 X10^6/uL (4.0-5.2); Red Cell Distribution Width 12.8 % (11.6-14.8); White Blood Cell Count 13.5 X10^3/uL (4.5-11.0)
[2022-10-13 08:16] LABS: BUN Creatinine Ratio 12.8 (6-22); Blood Urea Nitrogen 16 mg/dL (7-17); Calcium 7.9 mg/dL (8.4-10.2); Carbon Dioxide 20 mmol/L (22-32); Chloride 109 mmol/L (98-107); Estimated Glomerular Filt Rate 46 mL/min (>60); Glucose 108 mg/dL (80-110); HEMOLYSIS < 15 (0-50); Sodium 140 mmol/L (137-145)
--- NOTE | 2022-10-13 08:41 | CM.DANOTE ---
Initial DCP Assessment Note Pt is a 72 yo female, resident of [place], now POD#1 from laparoscopic assisted sigmoid colectomy This was a planned procedure for dx of diverticular stricture PCP: Carmencita Ordaz Payer: Marlo MILES Reviewed chart, pre-anesthesia assessment by Anh Hayes RN indicates that patient planning to return home to the care of her spouse upon discharge. No barriers identified at this time to patient's safe discharge home w/family to assist; close outpatient f/u recommended. As medical POC unfolds, CM team will plan to follow closely for any DC needs, concerns or questions that may arise DEEP Echever[place] Discharge Planning/Care Management CM Discharge Assessment Start: 10/13/22 08:36 Freq: Status: Active Protocol: Document 10/13/22 08:37 RONI (Rec: 10/13/22 08:41 RONI [id number]) Discharge Planning Assessment Assigned Fire Alarm Technician Ramya De La Cruz DPOA/Assigned Designee Name Nolan Corral, spouse Contact Information [phone] Advance Directives? Yes Advance Directives on File Yes History Provided By Medical Record Prior Living Arrangements House Household Members spouse Type of transporation used prior to Drives own vehicle admit Independent with ADL's Yes Is patient alert and oriented? Yes Barriers to Discharge No Comment None identified at this time. Home w/spouse expected upon medical clearance Discharge Plan Home Transportation Arrangement Family Referrals Initiated None needed Additional Comment CM team will plan to follow closely
[2022-10-13 08:54] VITALS: BP 123/50; PULSE 73
[2022-10-13] MEDS: POTASSIUM CHLORIDE 20 MEQ TAB PO (08:54)
[2022-10-13] MEDS: LOSARTAN 50 MG TABLET PO (08:54)
[2022-10-13] MEDS: AMLODIPINE 5 MG TABLET 2.5 MG PO (08:55)
[2022-10-13 09:00] VITALS: BP 127/53; PULSE 67; RESP 17; TEMP 36.3; O2SAT 96
[2022-10-13] MEDS: PANTOPRAZOLE DR 40 MG TABLET PO (09:00)
[2022-10-13] MEDS: ATORVASTATIN 20 MG TABLET PO (09:00)
[2022-10-13] MEDS: ENOXAPARIN 40 MG/0.4 ML SYRINGE SUBCUT (09:00)
[2022-10-13] MEDS: SODIUM CHLORIDE 0.9% FLUSH 10 ML IV (09:01)
[2022-10-13] MEDS: estradioL 1 MG TABLET 0.5 MG PO (09:06)
--- NOTE | 2022-10-13 11:30 | PT.IIE ---
Current Diagnoses Other intestinal obstruction unspecified as to partial versus complete obstruction (10/12/22) Surgery Performed Operation Date: 10/12/22 07:45 Actual Procedures p Laparoscopic Sigmoid Colectomy - Ismael Gilbert MD Surgical History (Last Reviewed 10/11/22 @ 16:53 by Ismael Gilbert MD) History of bladder surgery History of hysterectomy Hx of dilation and curettage Hx of tubal ligation Medical History (Last Reviewed 10/11/22 @ 16:53 by Ismael Gilbert MD) CKD (chronic kidney disease), stage III COVID-19 (09/2020) Dilation of esophagus Diverticulosis GERD (gastroesophageal reflux disease) History of multiple miscarriages HTN (hypertension) Hyperlipidemia Physical Therapy Inpatient Evaluation/Re-Eval M1 PT/OT-IP Prior Functional Status Start: 10/12/22 17:15 Freq: NEEDED Status: Active Protocol: Document 10/13/22 11:30 AB (Rec: 10/13/22 12:52 AB [id number]) Medical Review Prior Functional Status Medical History Reviewed Yes Communication able to make needs known Mobility and Gait pt stated that she is independent with all mobilities and ambulation without AD Social History Household Members spouse Living Arrangements House Number of Floors (Floors) Two Floors Number of Stairs To Enter/Railing? pt stays on main level of the house 1 step to enter the house Home Environment Standard Height Toilet,Walk in Shower M2 PT-IP Current Condition Start: 10/12/22 17:15 Freq: NEEDED Status: Active Protocol: Document 10/13/22 11:30 AB (Rec: 10/13/22 12:52 AB [email or web address]) Physical Therapy Current Condition Current Condition Evaluation Date 10/13/22 Treatment Diagnosis s/p lap assisted colectomy; difficulty in walking Onset Date 10/12/22 M3 PT-IP Subjective Start: 10/12/22 17:15 Freq: NEEDED Status: Active Protocol: Document 10/13/22 11:30 AB (Rec: 10/13/22 12:52 AB [email or web address]) Subjective Physical Therapy Visit Type Type Initial Evaluation Visit Start Time 11:30 Visit Stop Time 12:10 Total Visit Minutes 40 Number of LIDDER Visits 0 Physical Therapy Visit Comments Patient Comments agreeable to do PT Therapy Pain Assessment Pain When Pain Assessed At Rest Pain Present Pain Present Pain Reported Location abdomen Scale Used pain scale not stated Pain Management Techniques Modification of Treatment,Re- positioning,Timing of Activity with Medications M4 PT-IP Mobility and Gait Start: 10/12/22 17:15 Freq: NEEDED Status: Active Protocol: Document 10/13/22 11:30 AB (Rec: 10/13/22 12:52 AB [id number]) PT-Bed Mobility Assessment Rolling Type of Rolling Log Rolling Level of Assist Standby Assistance Supine to Sit Supine to Sit Standby Assistance Sit to Supine Sit to Supine Standby Assistance PT-Transfer Assessment Sit to and From Stand Sit to and from Stand Standby Assistance,Contact Guard Assistance,1 Person Assistance,Use of Upper Extremities Equipment Transfer Assistive Device Gait Belt,Front Wheeled Walker Orthotic/Prosthetic Devices or Brace: No Transfers Transfer Destination Toilet Transfer Technique ambulated Transfer Ability Level of Assist Standby Assistance,Contact Guard Assistance,1 Person Assistance,Use of Upper Extremities Comments Mobility Comments pt sitting on chair and just got out of the bed with NAC. pt agreed to do PT. requested to use the toilet. completed sit to stand CGA and ambulated to the toilet using FWW CGA. completed toileting SBA. ambulated to the sink using FWW SBA. cued for steadiness and increase LE elevation. completed handwashing SBA. ambulated to the chair using FWW SBA. educated pt on abdominal precautions and log roll bed mobility. pt ambulated more in room using FWW ~ 30 ft. sat on EOB and completed log roll sit<>supine SBA but cues provided for techniques. assessed ambulation without AD and pt completed SBA to CGA. present with increase shuffling gait but without LOB . pt sat on the chair. educated on safety and use of FWW for long distance ambulation and pt agreed. pt ambulated in the hallway using FWW SBA ~ 125 ft. completed up/down platform step mod A with spouse assisting and completed safely . pt ambulated farther using FWW ~ 300 ft SBA and back to her room. pt agreed to stay up on the chair. positioned on the chair. call light and table placed within reach. Gait Assessment Gait Gait Assistance Required: Standby Assistance,Contact Guard Assist Distance (Feet) 300 Able to Maintain Weight Bearing Status Yes During Gait Assistive Devices Assistive Device None,Gait Belt,Front Wheeled Walker Orthotic/Prosthetic Devices or Brace: No Gait Deviations General Gait Pattern Decreased Stride Length, Decreased Feet Clearance,Step- to Gait Factors Limiting Gait Function Factors Limiting Gait Function Decreased Activity Tolerance, Decreased Strength,Limited Range of Motion,Pain,Poor Balance Stair Climbing Assessment Evaluation Level of Assist On Stairs Moderate Assistance,1 Person Assistance Devices Stair Climbing Assistive Devices None Technique/Endurance Stair Climbing Direction Ascend and Descend Stair Climbing Technique Step to Step Number of Steps Climbed 1 Query Text: PT-Balance Assessment Sitting Balance and Reactions Static Sitting Balance Ability Normal Dynamic Sitting Balance Ability Normal Standing Balance and Reactions Static Standing Balance Ability Good Dynamic Standing Balance Ability Fair Device Used FWW M5 PT-IP Objective Assessments Start: 10/12/22 17:15 Freq: NEEDED Status: Active Protocol: Document 10/13/22 11:30 AB (Rec: 10/13/22 12:52 [email or web address]) Orientation Orientation/Cognition Level of Alertness Alert Orientation Name,Place,Situation Language Function Ability No Deficits Noted Safety Awareness Understands Safety Issues Memory Description No Deficits Noted Gross Range of Motion Lower Extremity ROM Assessment Within Functional Limits Strength Lower Extremity Strength Assessment Within Functional Limits Coordination Assessment Gross Coordination Gross Coordination WNL Sensation Assessment Sensation Gross Sensation WNL Muscle Tone Muscle Tone WNL Yes M6 PT-IP Treatment Start: 10/12/22 17:15 Freq: NEEDED Status: Active Protocol: Document 10/13/22 11:30 AB (Rec: 10/13/22 12:52 [email or web address]) Physical Therapy Treatment Education Education Provided Precautions,Post-Op Packet, Safety M7 PT-IP Assessment and Plan Start: 10/12/22 17:15 Freq: NEEDED Status: Active Protocol: Document 10/13/22 11:30 AB (Rec: 10/13/22 12:52 [email or web address]) PT Summary Assessment and Plan Potential Rehabilitation Potential Good Status of Condition at Evaluation Stable Summary Impairments Pain,ROM,Strength,Balance, Coordination,Sensation,Tone, Cognition,Bed Mobility, Transfers,Gait,Activity Tolerance Assessment Summary pt requiring SBA with ambulation using FWW and sBA to CGA without AD. Recommending use of FWW for long distance mobility at this time and pt agreed. pt plans to go home and spouse to assist. pt may go home when medically stable. Goals Bed Mobility Goal Independent Transfer Goal Independent Gait Goal Independent Gait Distance 300 Other Goals up/down 1 step without AD mod I Days to Meet Goals 5 Frequency of Treatment Frequency Of Treatment Once a Day Treatment Plan Physical Therapy Treatment Plan Bed Mobility Training,Transfer Training,Gait Training, Therapeutic Exercise,Balance Retraining,Post Op Education, Discharge Planning,Hot or Cold Pack,Neuromuscular Re-ed, Coordination Retraining,Manual Therapy Precautions Abdominal Surgery Precautions Log Roll,Lifting Restrictions, Gait Belt above Incisional Area Recommendations To Nursing Amount of Assist Needed Standby Assistance Discharge Recommendations PT Discharge Recommendations Home with Assistance Transportation Needs at Discharge Private Vehicle
[2022-10-13 13:53] VITALS: BP 123/44; PULSE 64; RESP 16; TEMP 36.4; O2SAT 98
--- NOTE | 2022-10-13 14:53 | PM.PNPO.1 ---
Subjective Subjective Date Patient Seen: 10/13/22 Time Patient Seen: 14:53 Interval history: minimal pain. Passage of flatus. No nausea. Tolerating clear liquid diet. Exam Vital Signs (past 8 hours): - 10/13/22 08:54 10/13/22 09:00 10/13/22 13:53 Temperature 97.4 F L 97.6 F Pulse Rate 73 67 64 Respiratory Rate 17 16 Blood Pressure 123/50 L 127/53 L 123/44 L Pulse Oximetry 96 98 Oxygen Flow Rate 0 Oxygen Delivery Method Nasal Cannula Oxygen Flow Rate 0 Narrative Exam Narrative: General adult woman alert oriented no distress Abdomen soft appropriately tender to palpation. Laparoscopic incisions are clean dry intact. Objective Labs Result Diagrams: 10/13/22 06:53 10/13/22 06:53 Labs: Laboratory Results - last 24 hr 10/13/22 10/13/22 06:53 06:53 WBC 13.5 H RBC 3.65 L Hgb 11.5 L Hct 33.1 L MCV 90.9 MCH 31.4 MCHC 34.6 RDW 12.8 Plt Count 195 Neut % (Auto) 89.1 H Lymph % (Auto) 5.4 L Steele % (Auto) 5.4 Eos % (Auto) 0.0 L Baso % (Auto) 0.1 Neut # (Auto) 00188 H Lymph # (Auto) 700 L Steele # (Auto) 700 Eos # (Auto) 0 Baso # (Auto) 0 Sodium 140 Potassium 4.0 Chloride 109 H Carbon Dioxide 20 L BUN 16 Creatinine 1.25 H Estimated GFR 46 L BUN/Creatinine Ratio 12.8 Glucose 108 Calcium 7.9 L PFSH Medical History CKD (chronic kidney disease), stage III COVID-19 (09/2020) Dilation of esophagus Diverticulosis GERD (gastroesophageal reflux disease) History of multiple miscarriages HTN (hypertension) Hyperlipidemia Surgical History History of bladder surgery History of hysterectomy Hx of dilation and curettage Hx of tubal ligation Social History household members: spouse Smoking Status: Never smoker alcohol intake: current Assessment & Plan Post-op Postoperative Procedures: Procedures Operation Date: 10/12/22 07:45 Actual Procedure Side Surgeon p Laparoscopic Sigmoid Colectomy Ismael Gilbert MD Postoperative status narrative: 72-year-old woman postoperative day one status post laparoscopic assisted sigmoid colectomy for diverticular stricture. She is doing well has return of bowel function. DC IV fluids Transition to regular diet SCD and Lovenox. PT eval. Possible discharge home today if tolerates regular.
--- NOTE | 2022-10-13 18:26 | PC.NURSE ---
Day shift: Pt left unit via WC at approx 1815. Taken in WC by ANTHONY Thomas. Pt's SPouse will drive Pt home. Paperwork signed and all questions answered. Spouse in room for teachings as well. Dressing remains CDI. Pt has new MD script. Pt has all personal belongings also.
== END 2022-10-13 18:29 | disposition home or self-care (01) | DRG 331 ==
PROVIDERS: Admitting Provider Surgery; PCP Student in an Organized Health Care Education/Training Program; Referring Provider Surgery; Visit Provider Surgery
PROC: 0DTE0ZZ Resection of Large Intestine, Open Approach (ICD-10-PCS; principal; 2022-10-12 07:45)
DX: K56.690 Other partial intestinal obstruction (principal); Z20.822 Contact with and (suspected) exposure to COVID-19
CPT/HCPCS: 36415; 44204; 80048; 82962; 85025; 87635; 94762; 97116; 97161; C9803; C9290; J1100; J1170; J1650; J1885; J1956; J2405; J2543; J2704

== ENCOUNTER 2023-02-21 11:59 | Day surgery (SDC) | payer OTHER, SELFPAY ==
[2022-10-12 12:42] VITALS: BMI 24.9
[2023-02-21] VITALS (8 sets, daily range): BP systolic 124–163; BP diastolic 74–89; PULSE 78–108; RESP 18–22; TEMP 36.1–36.6; O2SAT 94–99; BMI 24.5
[2023-02-21] MEDS: LACTATED RINGERS 1,000 ML 200 ML IV (12:50)
--- NOTE | 2023-02-21 13:00 | PM.HP.1 ---
History of Present Illness History of Present Illness Date Patient Seen: 02/21/23 Time Patient Seen: 13:00 Chief complaint: Colonoscopy Narrative: 72-year-old woman 4 months status post sigmoid colectomy for diverticular stricture. She would a brief period of normalcy following her operation but has subsequently suffered from chronic diarrhea. Despite dietary modifications fiber supplementation she continues to have loose stool and is here for diagnostic colonoscopy. [facility] Medical History CKD (chronic kidney disease), stage III COVID-19 (09/2020) Dilation of esophagus Diverticulosis GERD (gastroesophageal reflux disease) History of multiple miscarriages HTN (hypertension) Hyperlipidemia Surgical History History of bladder surgery History of hysterectomy Hx of dilation and curettage Hx of tubal ligation Social History household members: spouse Smoking Status: Never smoker alcohol intake: current Meds Home Medications and Allergies Home Medications Medication Instructions Recorded Confirmed Type rosuvastatin 10 mg tablet (Crestor) 10 mg PO DAILY ##0 07/17/17 02/21/23 History estradiol 0.5 mg tablet 0.5 mg PO DAILY 06/21/22 02/21/23 History losartan 50 mg tablet 50 mg PO DAILY 06/21/22 02/21/23 History amlodipine 2.5 mg tablet 2.5 mg PO DAILY 10/04/22 02/21/23 History pantoprazole 40 mg tablet,delayed 40 mg PO DAILY 10/04/22 02/21/23 History release potassium chloride 20 mEq 20 meq PO DAILY 10/04/22 02/21/23 History tablet,extended release Allergies Allergy/AdvReac Type Severity Reaction Status Date / Time Sulfa (Sulfonamide AdvReac Intermediate GENERAL Verified 02/21/23 12:25 Antibiotics) ILL FEELING [SULFA (SULFONAMIDE ANTIBIOTICS)] Exam Vital Signs (past 8 hours): - 02/21/23 12:35 Temperature 97.9 F Pulse Rate 78 Respiratory Rate 18 Blood Pressure 163/82 H Pulse Oximetry 99 Oxygen Delivery Method Room Air Oxygen Delivery Method Room Air Narrative Exam Narrative: Gen-Adult woman alert and oriented Assessment & Plan Assessment and plan (1) Diarrhea: Status: Acute Assessment & Plan narrative: 72 y.o woman with chronic diarrhea sp sigmoid colectomy here for diagnostic colonoscopy. Risks, benefits, alternatives explained. Risks including but not limited to myocardial infarction, aspiration, bleeding, pain, missed lesion, incomplete examination, need for further radiographic studies, colonic perforation, and need for major abdominal surgery were discussed. All questions were answered to their satisfaction, and they are in agreement with this plan.
--- NOTE | 2023-02-21 13:59 | PM.OP.COLON ---
Operative Date/Time/Diagnoses Date of procedure: 02/21/23 Time of procedure: 13:59 Pre-op diagnosis: Diarrhea Post-op diagnosis: other (Colonic stricture) Procedure & Clinicians Study performed: Sigmoidoscopy Same procedure as scheduled: Yes Indications: 72-year-old woman 4 months status post sigmoid colectomy for diverticular stricture who has chronic diarrhea here for diagnostic colonoscopy Surgeon: Ismael Gilbert Procedure Notes Procedure in detail: The history and physical was performed/updated and the patient is ASA class is 2. The procedure was discussed in detail with the patient. Potential risks complications including infection, bleeding, missed diagnosis, perforation, need for surgery, and were explained. Their questions were answered and informed consent was obtained. Patient was brought to the procedure room and placed standard monitoring equipment. The patient's vital signs were monitored continuously throughout the entire procedure. Prior to starting time-out was performed. The patient was placed in the left lateral recumbent position. Procedural sedation was administered by anesthesia. Examination began with a thorough inspection of the perianal area there was no evidence of fissures, fistulae, external hemorrhoids or cutaneous malignancy. The colonoscopy scope was then placed into the anal canal and was advanced forward. A normal appearing and end anastomosis was observed at proximally 10-15 cm. The scope was advanced to 30 cm at which point no further safe progress could be made. The lumen appeared quite narrow at this point there was fairly extensive diverticular disease within the area and procedure was stopped at this point. Did inject the sigmoid colon at its narrowing with 2 mL of ink. Impression: Likely colonic stricture Post-procedure Plan for aftercare: Barium enema. Disposition: same day surgery
== END 2023-02-21 15:20 | disposition home or self-care (01) ==
PROVIDERS: PCP Student in an Organized Health Care Education/Training Program; Referring Provider Surgery; Visit Provider Surgery
PROC: 0DJD8ZZ Inspection of Lower Intestinal Tract, Via Natural or Artificial Opening Endoscopic (ICD-10-PCS; CPT 45378; principal; 2023-02-21 13:15)
DX: R19.7 Diarrhea, unspecified (principal); K56.699 Other intestinal obstruction unspecified as to partial versus complete obstruction; K57.30 Diverticulosis of large intestine without perforation or abscess without bleeding
CPT/HCPCS: 45335; J2704

== ENCOUNTER → 2023-03-06 09:37 | Outpatient (CLI) | payer OTHER, SELFPAY ==
[2022-10-12 12:42] VITALS: BMI 24.9
--- NOTE | 2023-03-06 09:38 | DI.RAD.S_ITS ---
PROCEDURE: [place] BARIUM ENEMA INDICATIONS: incomplete colonoscopy suspect stricture hx of colectomy COMPARISON: [facility], CT, CT ABDOMEN PELVIS W CON, 12/23/2021, 10:49. [facility], [place], [place] BARIUM ENEMA, 07/20/2022, 9:56. FINDINGS: The exam was very difficult for the patient. The patient experienced pain with installation of contrast. The pain persisted throughout the exam. The patient was tearful. The patient had difficulty repositioning due to pain. KUB: Preprocedural movement education specialist film demonstrates a normal bowel gas pattern. Suture material in the left pelvis. No suspicious abdominal calcifications. Visualized solid organ contours appear normal in size. No suspicious bony lesions. Colon: There is adequate opacification of the entire colon. Persistent segmental narrowing at the sigmoid colon. Scattered colonic diverticuli. No perforations. No fistula is seen. Despite adequate time to drain the colon and attempted post evacuation, large portions of the contrast persists. IMPRESSION: Segmental narrowing in the sigmoid colon. Exam was difficult for the patient due to pain. Dictated by: Mansoor Rowland M.D. on 03/06/2023 at 14:33 Approved by: Mansoor Rowland M.D. on 03/06/2023 at 14:39
== END ==
PROVIDERS: PCP Student in an Organized Health Care Education/Training Program; Referring Provider Surgery; Visit Provider Surgery
DX: Z12.11 Encounter for screening for malignant neoplasm of colon (principal); K56.699 Other intestinal obstruction unspecified as to partial versus complete obstruction; K57.90 Diverticulosis of intestine, part unspecified, without perforation or abscess without bleeding
CPT/HCPCS: 74270

== ENCOUNTER 2023-03-15 06:20 | Inpatient (IN) | payer OTHER, SELFPAY ==
[2022-10-12 12:42] VITALS: BMI 24.9
[2023-03-09 14:21] VITALS: BMI 24.9
[2023-03-15] VITALS (22 sets, daily range): BP systolic 99–156; BP diastolic 48–69; PULSE 67–97; RESP 8–18; TEMP 36.3–37.6; O2SAT 91–98; BMI 23.8
--- NOTE | 2023-03-15 | PATH_ITS ---
[facility] Accession Number: [id number] No. of containers..02 Tissue . 01 Material submitted: . PART A: colon - SIGMOID COLON PART B: colon - ANASTOMOTIC DOUNT . 01 Diagnosis: A. Sigmoid Colon, Segmental Resection: Segment of colon with features compatible with operative impression of colonic stricture. Eight benign pericolonic lymph nodes. Negative for active inflammation, granulomas, dysplasia or malignancy. . B. Anastomotic Donut, Excision: Colonic tissue with no diagnostic abnormality. Negative for active inflammation, granulomas, dysplasia or malignancy. MRV 03/20/2023 1419 Local . 01 Electronically signed: . Gerardo Fuller MD, PhD, Pathologist NPI- [id number] . 01 Gross description: . A. Received in formalin labeled with the patient's name, and sigmoid colon consists of a fragment of colon measuring 13.9 cm in length by 3.5 cm in average diameter. One margin has multiple black sutures and is inked blue, the opposite staple line is inked black, and the roughened areas of adipose consistent with radial margin is inked green, and there is no designation per the requisition. The serosa ranges from chan to violaceous with no perforation or puckering identified. The mucosa is chan and diffusely nodular with attenuated folds. A small ulcerated area, 0.3 x 0.3 cm, is surrounded by michelle discoloration measuring 1.3 x 0.8 cm, and is located 0.7 cm from the nearest blue margin. No additional polyps or lesions are identified. The damon average 0.2 cm thick with no diverticula identified. Palpation reveals seven chan to brown lymph node candidates ranging from 0.3 to 0.6 cm in greatest dimension. Crap Shooter sections are submitted as follows: A1-A4: Ulcerated area to perpendicular blue margin. A5: Black margin en face. A6: Crap Shooter green margin en face. A7-A8: Crap Shooter mucosa with nodular areas. A9: Three intact lymph node candidates. A10: Four intact lymph node candidates. B. Received in formalin labeled with the patient's name, and anastomotic donut consists of two circular fragments of bowel. The first has a purple suture and measures 2.5 x 1.7 x 1.0 cm with no designation. The fragment is inked blue. The second fragment has a staple line and measures 2.3 x 1.7 x 1.4 cm and is inked green. The mucosa is chan to erythematous with no lesions identified. Crap Shooter sections are submitted in cassettes B1-B2. ([id number]) /MRV 03/16/2023 1811 Local . 01 Pathologist provided ICD-10: K56.699, Z87.19 . 01 CPT . 162604, 158976 Specimen Comment: A courtesy copy of this report has been sent to [phone] Performed at: 01 [facility] [address] [place] [address] [id number] MD Florian Treviño MD Phone: [phone]
[2023-03-15] MEDS: LACTATED RINGERS 1,000 ML 100 ML IV ×4 (06:47→20:08)
--- NOTE | 2023-03-15 07:37 | PM.PREOP ---
Pre-operative Note Interval Note History & Physical reviewed/Exam performed by Physician: Yes Changes to H&P: No
[2023-03-15] MEDS: PIPERACILLIN/TAZO 3.375 GM in SODIUM CHLORIDE 0.9% 100 ML IV (08:00)
[2023-03-15] MEDS: BUPIVACAINE 0.25% (PF) VIAL 30 ML INJ (08:15)
--- NOTE | 2023-03-15 08:16 | SUR.OPER ---
Lithotomy on padded OR bed. Richardson Pad Positioner under torso. Head on pillow, arms padded and tucked at sides. Legs secured in padded yellow fins stirrups.
[2023-03-15] MEDS: BUPIVACAINE LIPOSOME 266 MG/20 ML VIAL INJ (10:56)
--- NOTE | 2023-03-15 11:42 | P.OP_ITS ---
Operative Date/Time/Diagnoses Date of procedure: 03/15/23 Time of procedure: 11:42 Pre-op diagnosis: colonic stricture Post-op diagnosis: same Procedure & Clinicians Procedure: laparoscopic assisted sigmoid colectomy Same procedure as scheduled: Yes Indications: 72-year-old woman with a history of diverticular disease who developed a colonic stricture, resected with a partial sigmoid colectomy 6 months ago. She did relatively well for approximately 1-2 months and then developed obstructive diarrhea. A repeat colonoscopy demonstrates a stricture within the descending/sigmoid colon which was confirmed with barium enema. She is here today for a partial colectomy. Surgeon: Ismael Gilbert Railroad Commissioner: Sheree Cope Anesthesia Type: General Operative Notes Findings: short segment of colonic stricture above the peritoneal reflection Specimen(s): other (anastamotic donut, sigmoid colon) Estimated Blood Loss (mL): 50 Procedure in detail: Patient was brought to the operating room placed supine on the table. Bilateral lower extremity compression devices were applied. General anesthesia was induced and she was intubated with an endotracheal tube. She was then placed into lithotomy position appropriately padded. She received Zosyn prior to skin incision. Time-out was performed. A infraumbilical incision was made and a 12 mm balloon trocar was then placed into the abdomen pneumoperitoneum was established. A general inspection was made. There was a loop of small bowel adherent to the lower abdominal midline incision. Additional 5 mm working ports were placed in the right lower quadrant ,suprapubic and left lower quadrant. This loop was taken down off the anterior abdominal wall using sharp dissection. With this a general inspection of the abdomen was made. The site of her previous colectomy within the left lower quadrant was well adhesed to the pelvic sidewall. We began by mobilizing the descending colon. We followed the white line of Toldt and mobilized the descending colon off the lateral wall. Dissection was carried up around the splenic flexure and an additional 5 mm working port was placed in the left upper quadrant. The transverse colon was then elevated and the gastro colic ligament was put on stretch and then divided using the LigaSure. The lesser sac was entered and this allowed us to drop the transverse colon inferiorly. This dissection was carried all the way to the level of the hepatic flexure. This provided excellent mobility of the t ransverse and descending colon into the pelvis. Attention was then turned to the pelvis. Given her prior colectomy the colon was densely adherent to the lateral wall. As much progress as possible was made laparoscopically but I was unable to get the colon free from the wall using only laparoscopic technique. An infra umbilical midline incision was made. Self-retaining retractor was placed. Using finger fracture the colon was taken down off the lateral wall. Having done so we could now observe a tight stricture near the peritoneal reflection. A colonoscope was placed and was advanced forward and we could clearly see the point at which the colon strictured, it appeared to be a short segment of no more than 3 cm in length but tightly strictured the scope was unable to passed through despite external manipulation. There was a few pockets of diverticulosis near the stricture. Given that she has had 2 colonic strictures I decided to take as much length as possible within this sigmo id/descending colon. Ultimately approximally 8 inches of colon were resected. Using the WIL stapler the colon was divided above the level of the sigmoid colon where it was generally free from diverticular disease. A careful search was made for the left ureter but it was not observed within the scarred lateral wall. Rather than risk injury to the structure given further attempts for exploration and identification we decided to divide the mesentery as close to the bowel wall as possible.Then the colon was divided below the level of the stricture using the curved linear stapler. The sigmoid colon was then passed off the field labeled specimen/sigmoid. The staple line on the proximal colon was resected using electrocautery. A pursestring was created with 3-0 PDS. We sized the rectum 29 mm Sizer felt comfortable however given that this is her 2nd stricture it was upsized to 31 mm and fit well. The stapler was advanced into the rectum its point was deployed under direct visualization near the staple line. The anvil was secured within the pursestring and then the 2 ends were mated together and the anastomosis was formed under direct visualization careful to ensure that the descending colon was not twisted or on tension. Stapler was fired and it demonstrated 2 intact anastomotic donuts. At this point the colon was occluded leak test was performed with insufflation from below there was no evidence of leak. The colonoscope was advanced through the anastomosis which was widely patent and hemostatic and was continued until reaching the right colon. There was no evidence of masses or areas of further stricture. Abdomen was copiously irrigated. The abdomen was then closed with 1. PDS suture. Skin was reapproximated with 3-0 Vicryl and the skin closed with Monocryl followed by the application of Dermabond. She tolerated the procedure well was extubated and transferred to recovery room in stable condition. Complications: none Post-operative Condition: stable Disposition: Acute Care
--- NOTE | 2023-03-15 12:32 | SUR.PHASEI ---
Addendum entered and electronically signed by Megan Chamorro R.N. 03/15/23 13:49: 1340 Pt has reported that her eyes are stinging and painful to open. Dr. Jackson at bedside to assess, verbal order place for artificial tears. Two drop in each eye administered. Pt tollerated well. Original Note: Addendum entered and electronically signed by Megan Chamorro R.N. 03/15/23 12:41: Dr. Gilbert at bedside at 1242 to inspect drainage to surgical site. Aquacell dressing removed due to excess drainage and replaced with 4 x4 gauze the length of the incision and topped with 2 abd pads covered with pressure dressing of medipore tape. small size abdm binder applied per Dr. Gilbert. Original Note: 1230 dressing to pts abdm surgical site 40% saturated. Drainage is mildly exceeded previously drawn boarders made at 1220. Dr. Gilbert has been aware and no new orders placed.
[2023-03-15] MEDS: POLYVINYL ALCOHOL DROPS 1 DROPS EYE-BOTH ×2 (13:54→14:43)
--- NOTE | 2023-03-15 14:27 | PC.NURSE ---
Day shift: Pt in room from PACU at approx 1415. She is A&Ox4. VS WNL. RA 95%. Complains of eye discomfort and MD is aware. Damp wash cloth over eyes placed in PACU. Still over the eyes. Spouse in room for support. ABD dressing and ABD binder in place and all are CDI. Will continue with post-op protocol. High fall risk for now. Decker in place. Bed alarm is on. Call light in reach.
[2023-03-15] MEDS: ACETAMINOPHEN 325 MG TABLET 650 MG PO ×2 (14:38→20:08)
[2023-03-15] MEDS: IBUPROFEN 600 MG TABLET PO ×2 (14:38→20:08)
--- NOTE | 2023-03-15 16:21 | PC.NURSE ---
Day shift: Pt still complains of eye irritation and area around eyes are puffy.
--- NOTE | 2023-03-15 16:27 | PT-IP ANOTE ---
Attempted to see patient his afternoon. Patient still having eye irritation and unable to open eyes/see. PT not appropriate at this time. Encouraged patient to get up with nursing staff this evening once her eyes are better. Nursing made aware and agreeable to this. Will attempt eval tomorrow.
[2023-03-15] MEDS: OXYCODONE IR 5 MG TABLET PO (18:58)
--- NOTE | 2023-03-15 21:41 | PC.NURSE ---
Addendum entered by Eunice Benoit R.N. 03/15/23 23:44: O2 sat noted to be dropping down into upper 80's on RA so placed on oxygen at 1L/min per NC for overnight. Original Note: Patient is alert and oriented. Breath sounds CTA with RA sat of 95%. HRR w/elevated BP of 156/69. Denies nausea. BT absent and abdomen is tender. Dressing to abdomen is CDI and patient is wearing an abdominal binder. Indwelling catheter is patent; urine is clear yellow. Is able to turn herself in bed. Gait not assessed as has not yet been out of bed since return from surgery. Is wearing bilateral calf SCD's. Still having some bilateral eye irritation but sclera is not reddened and eyes are not watery. States abdominal pain is 3/10 and was medicated with scheduled tylenol + ibuprofen. Fall risk score is moderate and bed alarm is activated
[2023-03-16] VITALS (13 sets, daily range): BP systolic 123–141; BP diastolic 46–60; PULSE 56–85; RESP 16–20; TEMP 36.7–37.2; O2SAT 93–98
[2023-03-16] MEDS: IBUPROFEN 600 MG TABLET PO (01:58)
[2023-03-16] MEDS: ACETAMINOPHEN 325 MG TABLET 650 MG PO ×4 (01:59→19:32)
[2023-03-16] MEDS: LACTATED RINGERS 1,000 ML 100 ML IV (05:46)
[2023-03-16] MEDS: OXYCODONE IR 5 MG TABLET PO ×5 (05:46→18:47)
[2023-03-16] MEDS: PANTOPRAZOLE DR 40 MG TABLET PO (06:33)
[2023-03-16] MEDS: estradioL 1 MG TABLET 0.5 MG PO (09:25)
[2023-03-16] MEDS: AMLODIPINE 5 MG TABLET 2.5 MG PO (09:26)
[2023-03-16] MEDS: LOSARTAN 50 MG TABLET PO (09:26)
[2023-03-16] MEDS: ENOXAPARIN 40 MG/0.4 ML SYRINGE SUBCUT (09:27)
[2023-03-16] MEDS: POTASSIUM CHLORIDE 20 MEQ TAB PO (09:27)
[2023-03-16] MEDS: ATORVASTATIN 20 MG TABLET PO (09:27)
--- NOTE | 2023-03-16 11:07 | OT.IP.EVAL ---
Current Diagnoses Other intestinal obstruction unspecified as to partial versus complete obstruction (03/15/23) Surgery Performed Operation Date: 03/15/23 07:45 Actual Procedures p Laparoscopic Colectomy - Ismael Gilbert MD Past Medical History (Last Reviewed 03/11/23 @ 18:00 by Ismael Gilbert MD) CKD (chronic kidney disease), stage III COVID-19 (09/2020) Dilation of esophagus Diverticulosis GERD (gastroesophageal reflux disease) History of multiple miscarriages HTN (hypertension) Hyperlipidemia Surgical History (Last Reviewed 03/11/23 @ 18:00 by Ismael Gilbert MD) History of bladder surgery History of hysterectomy Hx of colectomy (10/12/22) Hx of dilation and curettage Hx of tubal ligation Occupational Therapy Inpatient Evaluation/Re-Eval M1 PT/OT-IP Prior Functional Status Start: 03/16/23 11:17 Freq: NEEDED Status: Active Protocol: Document 03/16/23 10:40 [facility] (Rec: 03/16/23 11:38 [facility] [id number]) Medical Review Prior Functional Status Communication Indepedent Mobility and Gait Independent Activities of Daily Living and IADL's Independent Prior Functional Level (Other details) Pt had S/P lap assisted colectomy and per pt recovered well and did not have to use any devices to ambulate. Pt states that her only had to assist with IADL needs after that surgery. Social History Household Members spouse Living Arrangements House Number of Floors (Floors) Two Floors Number of Stairs To Enter/Railing? 2 step from the front and garage. Pt has a basement but does not have to go downstairs and can stay on the main level. Home Environment High Toilet,Walk in Shower M2 OT-IP Current Condition Start: 03/16/23 11:17 Freq: Status: Active Protocol: Document 03/16/23 10:40 [facility] (Rec: 03/16/23 11:38 [facility] [id number]) Occupational Therapy Current Condition Current Condition Evaluation Date 03/16/23 Treatment Diagnosis S/P laparoscopic assisted sigmoid colectomy Diagnosis Onset Date 03/15/23 Post Operative Precautions Abdominal Surgery Precautions Log Roll,Lifting Restrictions, Gait Belt above Incisional Area M3 OT- IP Subjective and Pain Start: 03/16/23 11:17 Freq: Status: Active Protocol: Document 03/16/23 10:40 [facility] (Rec: 03/16/23 11:38 [facility] [id number]) OT- Subjective Occupational Therapy Visit Type Type Initial Evaluation Visit Start Time 10:40 Visit Stop Time 11:07 Total Visit Minutes 27 Occupational Therapy Visit Comments Patient Comments Pt agreed to get up. Patient/Caregiver Goals To go home. OT Pain Assessment Pain When Pain Assessed At Rest Pain Present Pain Present Pain Reported Location abdomen Intensity 3 Scale Used Numeric (0 - 10) M4 OT- IP ADL's Start: 03/16/23 11:17 Freq: Status: Active Protocol: Document 03/16/23 10:40 [facility] (Rec: 03/16/23 11:38 [facility] [id number]) OT [id number] Comments OT Self-Feeding Comments Pt just on clear liquid and to start regular diet for lunch. OT ADL-Grooming Comments OT Grooming Comments Pt states did prior. OT ADL-Oral Care Comments Oral Care Comments Pt states did prior. OT ADL-Dressing General Eval Lower Body Dressing Ability Maximum Assistance Comments OT Dressing Comments At this time pt will needing assist for LB dressing needs. Her to assist and also pt aware of LB dressing equipment if needed. OT ADL-Toileting General Evaluation Toileting Ability Total Assistance Comments OT Toileting Comments Decker in place. Suggested to continue to wear pads at night so not having to de león to the bathroom. In addition with use of wet ones and standing may be easier for hygiene needs at this time. OT ADL-Bathing Comments OT Bathing Comments Pt states her shower is too small for a shower stool/chair . Pt states her to be able to assist her. M5 OT- IP IADL's Start: 03/16/23 11:17 Freq: Status: Active Protocol: Document 03/16/23 10:40 [facility] (Rec: 03/16/23 11:38 [facility] [id number]) OT-Instrumental Activities of Daily Living Deficits IADL Deficits Identified Deficits Home Safety Awareness Awareness of Need for Assistance at Home Good Awareness Ability to Problem Solve Emergency Able to Problem Solve Situations Home Safety Comments Pt has a supportive that can assist for all her needs at home as needed. Livestock Broker Livestock Broker Caregiver Provides Assist M6 OT- IP Functional Cognition Start: 03/16/23 11:17 Freq: Status: Active Protocol: Document 03/16/23 10:40 [facility] (Rec: 03/16/23 11:38 [facility] [id number]) Cognitive Factors Limiting Selfcare Function Cognitive Ability Level of Alertness Alert Patient Orientation Name,Age,Birthday,Month,Date, Year,Day of Week,Place, Situation Attention Span Ability Capable of Focused Attention, Capable of Sustained Attention Ability to Follow Commands Able to Follow Multi-Step Commands Cognitive Comments Cognitive Assessment Comments Pt intact. OT- Vision and Hearing OT- Vision Assessment Visual Acuity Glasses All The Time Visual Attentiveness WFL Occular Pursuits WFL M7 OT- IP Mobility and Balance Start: 03/16/23 11:17 Freq: Status: Active Protocol: Document 03/16/23 10:40 [facility] (Rec: 03/16/23 11:38 [facility] [id number]) OT- Bed Mobility Assessment Supine to Sit Supine to Sit Assist Minimal Assistance Scooting Scooting to Edge of Bed Standby Assistance OT-Transfer Assessment Sit to and From Stand Sit to and from Stand Contact Guard Assistance Transfers Transfer Ability Contact Guard Assistance Technique Transfer Destination Bed,Chair Transfer Technique Stand Step Pivot Devices Transfer Assistive Devices Gait Belt,Front Wheeled Walker Comments Mobility Comments Educated pt on log rolling so able to follow her abdominal precautions. STEPHANIE to help get her trunk upright. Pt able to stand with CGA to FWW. BP supine 126/48, sitting 143/58, and standing 139/47 O2 on RA 97%. CGA with FWW to walk around the bed to the recliner and ROSANA to help lower pt to the recliner. Pt states can get a FWW if needed but feels that she will not need one by the time she leaves the hospital. OT- Balance Assessment Sitting Balance and Reactions Static Sitting Balance Ability Normal Dynamic Sitting Balance Ability Good Standing Balance and Reactions Static Standing Balance Ability Good Dynamic Standing Balance Ability Fair M8 OT- IP Objective Assessments Start: 03/16/23 11:17 Freq: Status: Active Protocol: Document 03/16/23 10:40 [facility] (Rec: 03/16/23 11:38 [facility] [id number]) OT Strength Comments Strength Comments NT due to sx, appears WFL for needs as seen during mobility needs. M9 OT- IP Assessment and Plan Start: 03/16/23 11:17 Freq: Status: Active Protocol: Document 03/16/23 10:40 [facility] (Rec: 03/16/23 11:38 [facility] [id number]) OT Summary Assessment and Plan Potential Rehabilitation Potential Good Analytic Complexity at Evaluation Low Summary OT Impairments Pain,Balance,Dressing, Toileting,Bathing,Toilet Transfers,Shower Transfers, Activity Tolerance Assessment Summary Pt Low complexity and main barriers are pain and activity tolerance. Pt has a supportive who will be able to assist for ADL and IADL needs at home. Pt aware of LB dressing equipment if needed. At this time pt wanting to focus on physical therapy needs and feels that her is able to do any OT needs as needed. Therefore discharge pt from OT services. Frequency of Treatment Frequency Of Treatment Discharge Discharge Recommendations OT Discharge Recommendations Home with Assistance Transportation Needs at Discharge Private Vehicle
--- NOTE | 2023-03-16 11:31 | PT.IIE ---
Current Diagnoses Other intestinal obstruction unspecified as to partial versus complete obstruction (03/15/23) Surgery Performed Operation Date: 03/15/23 07:45 Actual Procedures p Laparoscopic Colectomy - Ismael Gilbert MD Surgical History (Last Reviewed 03/11/23 @ 18:00 by Ismael Gilbert MD) History of bladder surgery History of hysterectomy Hx of colectomy (10/12/22) Hx of dilation and curettage Hx of tubal ligation Medical History (Last Reviewed 03/11/23 @ 18:00 by Ismael Gilbert MD) CKD (chronic kidney disease), stage III COVID-19 (09/2020) Dilation of esophagus Diverticulosis GERD (gastroesophageal reflux disease) History of multiple miscarriages HTN (hypertension) Hyperlipidemia Physical Therapy Inpatient Evaluation/Re-Eval M1 PT/OT-IP Prior Functional Status Start: 03/16/23 12:37 Freq: NEEDED Status: Active Protocol: Document 03/16/23 11:31 [facility] (Rec: 03/16/23 12:54 AB [id number]) Medical Review Prior Functional Status Medical History Reviewed Yes Communication able to make needs known Mobility and Gait pt stated that she is independent with all mobilities and ambulation without AD Prior Functional Level (Other details) pt s/p colectomy 10/12/22 to 10/13/22. pt developed a sigmoid stricture and underwent another partial colectomy 03/15/23 Social History Household Members spouse Living Arrangements House Number of Floors (Floors) Two Floors Number of Stairs To Enter/Railing? pt stays on main level of the house 1 step to enter the house Home Environment Standard Height Toilet,Walk in Shower M2 PT-IP Current Condition Start: 03/16/23 12:37 Freq: NEEDED Status: Active Protocol: Document 03/16/23 11:31 [facility] (Rec: 03/16/23 12:54 AB [id number]) Physical Therapy Current Condition Current Condition Evaluation Date 03/16/23 Treatment Diagnosis s/p colectomy; difficulty in walking Onset Date 03/15/23 M3 PT-IP Subjective Start: 03/16/23 12:37 Freq: NEEDED Status: Active Protocol: Document 03/16/23 11:31 [facility] (Rec: 03/16/23 12:54 AB [id number]) Subjective Physical Therapy Visit Type Type Initial Evaluation Visit Start Time 11:31 Visit Stop Time 12:02 Total Visit Minutes 31 Number of DENTAL TECHNICIAN METAL Visits 0 Physical Therapy Visit Comments Patient Comments agreeable to do PT Therapy Pain Assessment Pain When Pain Assessed At Rest Pain Present Pain Present Pain Reported Location abdomen Intensity 6 Scale Used Numeric (0 - 10) Pain Management Techniques Distraction,Modification of Treatment,Re-positioning, Timing of Activity with Medications M4 PT-IP Mobility and Gait Start: 03/16/23 12:37 Freq: NEEDED Status: Active Protocol: Document 03/16/23 11:31 [facility] (Rec: 03/16/23 12:54 [facility] [id number]) PT-Bed Mobility Assessment Rolling Type of Rolling Log Rolling Level of Assist Standby Assistance Supine to Sit Supine to Sit Standby Assistance Sit to Supine Sit to Supine Standby Assistance PT-Transfer Assessment Sit to and From Stand Sit to and from Stand Contact Guard Assistance, Minimal Assistance,1 Person Assistance,Use of Upper Extremities Equipment Transfer Assistive Device Gait Belt Orthotic/Prosthetic Devices or Brace: No Transfers Transfer Destination Bed,Chair Transfer Technique ambulated Transfer Ability Level of Assist Contact Guard Assistance,1 Person Assistance,Use of Upper Extremities Comments Mobility Comments pt sitting on the chair. spouse in room. pt is aware of her abdominal precautions. BP in sittin/46. completed sit to stand min A and max cues. cued pt not to hold her breath when doing activities. ambulated in room using FWW ~40 ft CGA. presents with guarded, very slow paced walk and narrow YANG with increase R LE external rotation. pt sat on EOB and demonstrated log roll bed mobility SBA but required cues for techniques. pt presents difficulty in completing tasks requiring increase time to complete. pt completed sit to stand from EOB CGA and ambulated to the chair using fWW CGA. positioned pt on the chair. call light and table placed within reach. BP checked: 130/46. pt wanting to ambulate in the hallway later in the afternoon and informed pt to ambulate with nursing staff at this time in her room to start with for safety since pt's activity tolerance is still low. informed NAC that if pt wants to ambulate in the hallway, she will need a w/c follow. pt and NAC understood. Gait Assessment Gait Gait Assistance Required: Contact Guard Assist,1 Person Assist Distance (Feet) 40 Able to Maintain Weight Bearing Status Yes During Gait Assistive Devices Assistive Device Gait Belt,Front Wheeled Walker Orthotic/Prosthetic Devices or Brace: No Gait Deviations General Gait Pattern Decreased Stride Length, Decreased Feet Clearance, Narrow Based Gait,Step-to Gait Factors Limiting Gait Function Factors Limiting Gait Function Decreased Activity Tolerance, Decreased Strength,Difficulty Following Directions,Pain,Poor Balance,Poor Safety Awareness PT-Balance Assessment Sitting Balance and Reactions Static Sitting Balance Ability Normal Dynamic Sitting Balance Ability Good Standing Balance and Reactions Static Standing Balance Ability Fair Dynamic Standing Balance Ability Fair Device Used FWW M5 PT-IP Objective Assessments Start: 03/16/23 12:37 Freq: NEEDED Status: Active Protocol: Document 03/16/23 11:31 [facility] (Rec: 03/16/23 12:54 AB [id number]) Orientation Orientation/Cognition Level of Alertness Alert Orientation Name,Place,Situation Language Function Ability No Deficits Noted Safety Awareness Understands Safety Issues Memory Description No Deficits Noted Gross Range of Motion Lower Extremity ROM Assessment Within Functional Limits Strength Lower Extremity Strength Assessment Within Functional Limits Sensation Assessment Sensation Gross Sensation WNL Muscle Tone Muscle Tone WNL Yes M6 PT-IP Treatment Start: 03/16/23 12:37 Freq: NEEDED Status: Active Protocol: Document 03/16/23 11:31 AB (Rec: 03/16/23 12:54 AB [id number]) Physical Therapy Treatment Education Education Provided Precautions,Safety M7 PT-IP Assessment and Plan Start: 03/16/23 12:37 Freq: NEEDED Status: Active Protocol: Document 03/16/23 11:31 [facility] (Rec: 03/16/23 12:54 AB [id number]) PT Summary Assessment and Plan Potential Rehabilitation Potential Good Status of Condition at Evaluation Evolving Summary Impairments Pain,ROM,Strength,Balance, Coordination,Sensation,Tone, Cognition,Bed Mobility, Transfers,Gait,Activity Tolerance Assessment Summary pt s/p colectomy 03/15/23. pt requiring CGA with mobility using FWW but presents with decrease actvity tolerance demonstrating slow paced gait and was only able to ambulate ~ 40 ft using FWW. pt will need a FWW for home use and spouse plans to borrow from the [employer]. Pt to continue skilled PT here in the hospital to improve overall strength, activity tolerance and mobility independence. pt also needs to be able to complete stair climbing training prior to d/c will continue to assess progress. pt may benefit from HHPT vs outpt PT depending on progress. Goals Bed Mobility Goal Independent Transfer Goal Independent,Front Wheeled Walker Gait Goal Independent,Front Wheel Walker Gait Distance 250 Other Goals improve transfers and ambulation without AD >300 ft SBA up/down 1 step SBA Days to Meet Goals 10 Frequency of Treatment Frequency Of Treatment Once a Day Treatment Plan Physical Therapy Treatment Plan Bed Mobility Training,Transfer Training,Gait Training, Therapeutic Exercise,Balance Retraining,Post Op Education, Discharge Planning,Hot or Cold Pack,Neuromuscular Re-ed, Coordination Retraining,Manual Therapy Precautions Abdominal Surgery Precautions Log Roll,Lifting Restrictions, Gait Belt above Incisional Area Recommendations To Nursing Amount of Assist Needed 1 Person Assist Discharge Recommendations PT Discharge Recommendations Home with Assistance,Home Health,Outpatient PT Transportation Needs at Discharge Private Vehicle
--- NOTE | 2023-03-16 12:37 | PC.NURSE ---
Day shift: Pt wants to leave Decker cath in place until about dinner time today.
--- NOTE | 2023-03-16 12:54 | OT.IPNOTE ---
Able complete OT eval with pt. Pt states her is able to assist as needed and therefore just wanting to focus on having physical therapy at this time. Able to notify CM and nursing OT services to be discharged.
--- NOTE | 2023-03-16 14:22 | CM.DANOTE ---
Initial DCP Assessment Note Pt is a 72 yo female, resident of [place], now POD#1 from laparoscopic assisted sigmoid colectomy by Dr Gilbert. PMH includes partial sigmoid colectomy 6 months ago. PCP: Carmencita Ordaz Payer: Marlo MILES Reviewed chart, met w/patient to introduce role. Brief visit as patient explains she is active and indp and has been through this before spouse available to assist once patient returns home No barriers identified at this time to patient's safe discharge home w/spouse to assist; close outpatient f/u recommended. 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 Yes Advance Directives on File Yes History Provided By Patient,Medical Record Prior Living Arrangements House Household Members spouse Type of transporation used prior to Drives own vehicle admit Independent with ADL's Yes Is patient alert and oriented? Yes Barriers to Discharge No Comment None identified at this time. Home w/spouse expected upon medical clearance Discharge Plan Home Transportation Arrangement Family Referrals Initiated None needed Additional Comment CM team will plan to follow closely
--- NOTE | 2023-03-16 17:05 | PM.PNPO.1 ---
Subjective Subjective Date Patient Seen: 03/16/23 Time Patient Seen: 17:05 Interval history: Did well overnight. Tolerating clear liquid. Positive BM and flatus. Ambulated today with physical therapy. Exam Vital Signs (past 8 hours): - 03/16/23 12:16 03/16/23 12:29 03/16/23 15:49 Temperature 98.6 F Pulse Rate 56 L Respiratory Rate 18 Blood Pressure 130/46 L Pulse Oximetry 97 96 96 Oxygen Delivery Method Room Air Room Air Oxygen Flow Rate 0 03/16/23 16:35 Temperature 98.8 F Pulse Rate 59 L Respiratory Rate 18 Blood Pressure 123/48 L Pulse Oximetry 93 Oxygen Delivery Method Oxygen Flow Rate 0 Oxygen Delivery Method Room Air Oxygen Flow Rate 0 Narrative Exam Narrative: General adult woman alert oriented no acute distress Abdomen soft appropriately tender to palpation. Dressings clean dry intact. [facility] Medical History CKD (chronic kidney disease), stage III COVID-19 (09/2020) Dilation of esophagus Diverticulosis GERD (gastroesophageal reflux disease) History of multiple miscarriages HTN (hypertension) Hyperlipidemia Surgical History History of bladder surgery History of hysterectomy Hx of colectomy (10/12/22) Hx of dilation and curettage Hx of tubal ligation Social History household members: spouse Smoking Status: Never smoker alcohol intake: current Assessment & Plan Post-op Postoperative Procedures: Procedures Operation Date: 03/15/23 07:45 Actual Procedure Side Surgeon p Laparoscopic Colectomy Ismael Gilbert MD Postoperative status narrative: 72-year-old woman postoperative day 1 status post laparoscopic assisted sigmoid colectomy. Doing well progressing appropriately -regular diet -DC IV fluids -PT/OT -SCDs and prophylactic Lovenox
[2023-03-16] MEDS: SODIUM CHLORIDE 0.9% FLUSH 10 ML IV (20:24)
[2023-03-17] VITALS (11 sets, daily range): BP systolic 127–147; BP diastolic 52–65; PULSE 55–81; RESP 16–18; TEMP 35.9–36.9; O2SAT 91–98
[2023-03-17] MEDS: OXYCODONE IR 5 MG TABLET PO ×5 (05:56→22:50)
[2023-03-17] MEDS: PANTOPRAZOLE DR 40 MG TABLET PO (05:59)
[2023-03-17] MEDS: AMLODIPINE 5 MG TABLET 2.5 MG PO (09:47)
[2023-03-17] MEDS: estradioL 1 MG TABLET 0.5 MG PO (09:48)
[2023-03-17] MEDS: ATORVASTATIN 20 MG TABLET PO (09:49)
[2023-03-17] MEDS: POTASSIUM CHLORIDE 20 MEQ TAB PO (09:49)
[2023-03-17] MEDS: LOSARTAN 50 MG TABLET PO (09:49)
[2023-03-17] MEDS: ACETAMINOPHEN 325 MG TABLET 650 MG PO ×3 (09:50→20:05)
[2023-03-17] MEDS: ENOXAPARIN 40 MG/0.4 ML SYRINGE SUBCUT (09:50)
[2023-03-17] MEDS: SODIUM CHLORIDE 0.9% FLUSH 10 ML IV ×2 (09:55→20:06)
--- NOTE | 2023-03-17 11:46 | PC.NURSE ---
Day shift: Pt ambulated in halls in the [facility]. Tolerated well. Approx 150 feet.
--- NOTE | 2023-03-17 11:54 | PT.IPTN ---
Current Diagnoses Other intestinal obstruction unspecified as to partial versus complete obstruction (03/15/23) Surgery Performed Operation Date: 03/15/23 07:45 Actual Procedures p Laparoscopic Colectomy - Ismael Gilbert MD Physical Therapy Treatment Note M2 PT-IP Current Condition Start: 03/16/23 12:37 Freq: NEEDED Status: Active Protocol: Document 03/16/23 11:31 AB (Rec: 03/16/23 12:54 AB [id number]) Physical Therapy Current Condition Current Condition Evaluation Date 03/16/23 Treatment Diagnosis s/p colectomy; difficulty in walking Onset Date 03/15/23 M3 PT-IP Subjective Start: 03/16/23 12:37 Freq: NEEDED Status: Active Protocol: Document 03/17/23 12:08 TS (Rec: 03/17/23 12:19 TS [id number]) Subjective Physical Therapy Visit Type Type Treatment Note Visit Start Time 11:54 Visit Stop Time 12:07 Total Visit Minutes 13 Notes Spouse present Number of SERVICE CONTROL OPERATOR Visits 1 Physical Therapy Visit Comments Patient Comments Pt reports being up with nursing walking in hallway this morning, agreeable to do PT Therapy Pain Assessment Pain When Pain Assessed At Rest Pain Present Pain Present Pain Reported M4 PT-IP Mobility and Gait Start: 03/16/23 12:37 Freq: NEEDED Status: Active Protocol: Document 03/17/23 12:08 TS (Rec: 03/17/23 12:19 TS [id number]) PT-Transfer Assessment Sit to and From Stand Sit to and from Stand Standby Assistance,Use of Upper Extremities Equipment Transfer Assistive Device Gait Belt Orthotic/Prosthetic Devices or Brace: No Comments Mobility Comments Pt found up in chair, agreeable to PT. Sit to stand SBA w/FWW, slow/cautious to stand. She ambulated with slow stpe thru gait with FWW ~200' , no buckling or LOB. She performed platform step x1 with FWW CGA, provided cues for sequencing. Pt was left back in room with call light nearby, spouse in room and lunch. Gait Assessment Gait Gait Assistance Required: Standby Assistance,1 Person Assist Distance (Feet) 200 Able to Maintain Weight Bearing Status Yes During Gait Assistive Devices Assistive Device Gait Belt,Front Wheeled Walker Orthotic/Prosthetic Devices or Brace: No Gait Deviations General Gait Pattern Decreased Stride Length, Decreased Feet Clearance, Narrow Based Gait Factors Limiting Gait Function Factors Limiting Gait Function Decreased Activity Tolerance, Decreased Strength,Pain,Poor Balance Comments Gait Comments See mobility comments. Stair Climbing Assessment Evaluation Level of Assist On Stairs Contact Guard Assistance Devices Stair Climbing Assistive Devices Front Wheel Walker Technique/Endurance Stair Climbing Direction Ascend and Descend Stair Climbing Technique Step to Step Number of Steps Climbed 1 Comments Stair Climbing Comments See mobility comments. PT-Balance Assessment Sitting Balance and Reactions Static Sitting Balance Ability Normal Dynamic Sitting Balance Ability Good Standing Balance and Reactions Static Standing Balance Ability Good Dynamic Standing Balance Ability Fair Device Used FWW M5 PT-IP Objective Assessments Start: 03/16/23 12:37 Freq: NEEDED Status: Active Protocol: Document 03/16/23 11:31 AB (Rec: 03/16/23 12:54 AB [id number]) Orientation Orientation/Cognition Level of Alertness Alert Orientation Name,Place,Situation Language Function Ability No Deficits Noted Safety Awareness Understands Safety Issues Memory Description No Deficits Noted Gross Range of Motion Lower Extremity ROM Assessment Within Functional Limits Strength Lower Extremity Strength Assessment Within Functional Limits Sensation Assessment Sensation Gross Sensation WNL Muscle Tone Muscle Tone WNL Yes M6 PT-IP Treatment Start: 03/16/23 12:37 Freq: NEEDED Status: Active Protocol: Document 03/17/23 12:08 TS (Rec: 03/17/23 12:19 TS [id number]) Physical Therapy Treatment Education Education Provided Precautions,Safety M7 PT-IP Assessment and Plan Start: 03/16/23 12:37 Freq: NEEDED Status: Active Protocol: Document 03/17/23 12:08 TS (Rec: 03/17/23 12:19 TS [id number]) PT Summary Assessment and Plan Potential Rehabilitation Potential Good Summary Impairments Pain,ROM,Strength,Balance, Coordination,Sensation,Tone, Cognition,Bed Mobility, Transfers,Gait,Activity Tolerance Progress Towards Goals Progressing Toward Goals Assessment Summary Pt is progressing well with her mobility. She progressed her gait to ~200' in hallway SBA with FWW, pt continues to require extra time for mobility due to being cautious . She recalled 3/3 precautions and demonstrates good awareness of her precautions during mobility. She performed stair x1 with platform step and FWW CGA, no buckling or LOB. PT is recommending return home with spouse for assist. Goals Bed Mobility Goal Independent Transfer Goal Independent,Front Wheeled Walker Gait Goal Independent,Front Wheel Walker Gait Distance 250 Other Goals improve transfers and ambulation without AD >300 ft SBA up/down 1 step SBA Days to Meet Goals 10 Frequency of Treatment Frequency Of Treatment Once a Day Treatment Plan Physical Therapy Treatment Plan Bed Mobility Training,Transfer Training,Gait Training, Therapeutic Exercise,Balance Retraining,Post Op Education, Discharge Planning,Hot or Cold Pack,Neuromuscular Re-ed, Coordination Retraining,Manual Therapy Precautions Abdominal Surgery Precautions Log Roll,Lifting Restrictions, Gait Belt above Incisional Area Recommendations To Nursing Amount of Assist Needed Standby Assistance Discharge Recommendations PT Discharge Recommendations Home with Assistance, Outpatient PT Transportation Needs at Discharge Private Vehicle
--- NOTE | 2023-03-17 16:52 | PM.PNPO.1 ---
Subjective Subjective Date Patient Seen: 03/17/23 Time Patient Seen: 16:52 Interval history: No acute overnight events. Tolerated regular diet. Ambulatory has return of bowel function. Exam Vital Signs (past 8 hours): - 03/17/23 10:02 03/17/23 12:13 03/17/23 13:47 Temperature 97.6 F Pulse Rate 55 L Respiratory Rate 18 Blood Pressure 135/54 L Pulse Oximetry 97 96 97 Oxygen Delivery Method Room Air Room Air Oxygen Flow Rate 0 Oxygen Delivery Method Room Air Oxygen Flow Rate 0 Narrative Exam Narrative: General adult woman alert oriented no acute distress Abdomen the dressings removed midline incisions clean dry intact. Replaced with Aquacel dressing. Appropriately tender to palpation. [facility] Medical History CKD (chronic kidney disease), stage III COVID-19 (09/2020) Dilation of esophagus Diverticulosis GERD (gastroesophageal reflux disease) History of multiple miscarriages HTN (hypertension) Hyperlipidemia Surgical History History of bladder surgery History of hysterectomy Hx of colectomy (10/12/22) Hx of dilation and curettage Hx of tubal ligation Social History household members: spouse Smoking Status: Never smoker alcohol intake: current Assessment & Plan Post-op Postoperative Procedures: Procedures Operation Date: 03/15/23 07:45 Actual Procedure Side Surgeon p Laparoscopic Colectomy Ismael Gilbert MD Postoperative status narrative: 72-year-old woman postoperative day 2 status post laparoscopic-assisted sigmoid colectomy doing well. She is progressing appropriately. -regular -ambulate -anticipate discharge home tomorrow -SCDs and Lovenox
[2023-03-17] MEDS: DOCUSATE 100 MG CAPSULE PO (20:05)
[2023-03-18] MEDS: OXYCODONE IR 5 MG TABLET PO (03:29)
[2023-03-18] MEDS: ACETAMINOPHEN 325 MG TABLET 650 MG PO ×2 (03:29→09:42)
[2023-03-18 03:49] VITALS: BP 142/66; PULSE 73; RESP 19; TEMP 36.1; O2SAT 94
[2023-03-18 05:00] VITALS: O2SAT 94
[2023-03-18] MEDS: PANTOPRAZOLE DR 40 MG TABLET PO (06:23)
[2023-03-18 09:00] VITALS: BP 149/57; PULSE 44; RESP 17; TEMP 36.3; O2SAT 96; O2SAT 97
[2023-03-18] MEDS: AMLODIPINE 5 MG TABLET 2.5 MG PO (09:41)
[2023-03-18] MEDS: DOCUSATE 100 MG CAPSULE PO (09:42)
[2023-03-18] MEDS: estradioL 1 MG TABLET 0.5 MG PO (09:43)
[2023-03-18] MEDS: POTASSIUM CHLORIDE 20 MEQ TAB PO (09:43)
[2023-03-18 09:44] VITALS: BP 142/66
[2023-03-18] MEDS: ENOXAPARIN 40 MG/0.4 ML SYRINGE SUBCUT (09:44)
[2023-03-18] MEDS: ATORVASTATIN 20 MG TABLET PO (09:44)
[2023-03-18] MEDS: SODIUM CHLORIDE 0.9% FLUSH 10 ML IV (09:44)
[2023-03-18] MEDS: LOSARTAN 50 MG TABLET PO (09:44)
--- NOTE | 2023-03-18 11:31 | PM.PNPO.1 ---
Subjective Subjective Date Patient Seen: 03/18/23 Time Patient Seen: 11:31 Interval history: doing great Exam Vital Signs (past 8 hours): - 03/18/23 03:49 03/18/23 05:00 03/18/23 09:44 Temperature 97.0 F L Pulse Rate 73 Respiratory Rate 19 Blood Pressure 142/66 H 142/66 H Pulse Oximetry 94 94 Oxygen Delivery Method Room Air Oxygen Flow Rate 0 03/18/23 09:00 03/18/23 09:00 Temperature 97.4 F L Pulse Rate 44 L Respiratory Rate 17 Blood Pressure 149/57 H Pulse Oximetry 97 96 Oxygen Delivery Method Room Air Oxygen Flow Rate 0 Oxygen Delivery Method Room Air Oxygen Flow Rate 0 Narrative Exam Narrative: Incision dry and intact dressing, abdomen is soft. [facility] Medical History CKD (chronic kidney disease), stage III COVID-19 (09/2020) Dilation of esophagus Diverticulosis GERD (gastroesophageal reflux disease) History of multiple miscarriages HTN (hypertension) Hyperlipidemia Surgical History History of bladder surgery History of hysterectomy Hx of colectomy (10/12/22) Hx of dilation and curettage Hx of tubal ligation Social History household members: spouse Smoking Status: Never smoker alcohol intake: current Assessment & Plan Post-op Postoperative Procedures: Procedures Operation Date: 03/15/23 07:45 Actual Procedure Side Surgeon p Laparoscopic Colectomy Ismael Gilbert MD Postoperative status: doing well Postoperative plan: discharge Time Spent With Patient Time with patient: 15-24 minutes
--- NOTE | 2023-03-18 11:32 | PM.DS.1 ---
History of Present Illness History of Present Illness Date Patient Seen: 03/18/23 Time Patient Seen: 11:32 Chief complaint: Laparoscopically Assisted Colectomy Narrative: S/p sigmoid colon resection for recurrent stricture. Discharge Providers Provider Date of admission: 03/15/23 06:20 Discharge Date: 03/18/23 Primary care physician: Carmenicta Ordaz PA-C Consults: 03/15/23 06:00 Consult to Discharge Planning Routine Comment: 03/15/23 14:14 Consult to Discharge Planning Routine Comment: Consult to Occupational Therapy Evaluate & Treat Comment: Physician Instructions: Evaluate and treat Consult to Physical Therapy Evaluate & Treat Comment: Physician Instructions: Evaluate and Treat Discharge provider: Sheree Cope MD Summary Hospital Course Discharge Diagnosis: colonic stricture Hospital Course: s/p sigmoid colon resection Status at Discharge Cognitive/behavioral status at discharge: at baseline, oriented Functional status at discharge: independent ambulation Overall status at discharge: patient is progressing back to baseline Time Spent with Patient Time spent: Less than 30 minutes Exam Vital Signs (past 8 hours): - 03/18/23 03:49 03/18/23 05:00 03/18/23 09:44 Temperature 97.0 F L Pulse Rate 73 Respiratory Rate 19 Blood Pressure 142/66 H 142/66 H Pulse Oximetry 94 94 Oxygen Delivery Method Room Air Oxygen Flow Rate 0 03/18/23 09:00 03/18/23 09:00 Temperature 97.4 F L Pulse Rate 44 L Respiratory Rate 17 Blood Pressure 149/57 H Pulse Oximetry 97 96 Oxygen Delivery Method Room Air Oxygen Flow Rate 0 Oxygen Delivery Method Room Air Oxygen Flow Rate 0 Narrative Exam Narrative: abdomen is benign, incision dressing remains dry and intact Const General: cooperative and comfortable [facility] Medical History CKD (chronic kidney disease), stage III COVID-19 (09/2020) Dilation of esophagus Diverticulosis GERD (gastroesophageal reflux disease) History of multiple miscarriages HTN (hypertension) Hyperlipidemia Surgical History History of bladder surgery History of hysterectomy Hx of colectomy (10/12/22) Hx of dilation and curettage Hx of tubal ligation Social History household members: spouse Smoking Status: Never smoker alcohol intake: current Discharge Assessment & Plan Assessment and Plan Assessment: s/p laparoscopic assisted sigmoid colectomy w/o complication Plan of Treatment: Discharge home with lifting restrictions Discharge Plan Discharge Plan Patient Disposition: Home Discharge orders & Medications Prescriptions: New docusate sodium 100 mg Capsule 100 mg PO BID Qty: 10 0RF oxycodone 5 mg Tablet 5 mg PO Q3H PRN (Reason: Pain, Moderate (4-6)) Qty: 20 0RF Continued rosuvastatin [Crestor] 10 MG tablet 10 mg PO DAILY Qty: 0 losartan 50 mg tablet 50 mg PO DAILY estradiol 0.5 mg tablet 0.5 mg PO DAILY amlodipine 2.5 mg Tablet 2.5 mg PO DAILY pantoprazole 40 mg Tablet,Delayed Release (Dr/Ec) 40 mg PO DAILY potassium chloride 20 mEq Tablet Extended Release 20 meq PO DAILY Discontinued metronidazole 500 mg tablet 1,000 mg PO .COMPLEX Qty: 4 0RF Rx Instructions: 1,000 mg PO 1 g PO; TAKE 2 tabs at 2 PM, and 10 PM the day prior to surgery; levofloxacin 500 mg tablet 500 mg PO DAILY Qty: 2 0RF Rx Instructions: 1 tab at 2 and 10 pm day prior to surgery Follow up/Referrals: Carmencita Ordaz PA-C [Primary Care Provider] - Ismael Gilbert MD [Physician] - Activity Restrictions/Additional Instructions: no lifting greater than 15 lbs for 4 weeks Diet/Activity/Treatments Diet: Diet as Tolerated Skin/Wound/Dressing Care Report to your healthcare provider any signs of infection, such as:: chills, fever, increased pain and unusual drainage Visit Report/Discharge Packet Instructions: DI for Colectomy, [facility]: Wound Care Stand Alone Forms: Patient Portal/API, Surgery Discharge Discharge Data Primary Care Provider: Carmencita Ordaz
--- NOTE | 2023-03-18 11:34 | PC.NURSE ---
Pt denies any discomfort, Amb in hallway. BON guzman CDI Discharge orders received. HL D/C'd, Home instructions and RX given w/understanding. Pt escorted by staff via w/c to waiting vehicle. D/C in stable post op status.
== END 2023-03-18 11:30 | disposition home or self-care (01) | DRG 331 ==
PROVIDERS: Admitting Provider Surgery; PCP Student in an Organized Health Care Education/Training Program; Referring Provider Surgery; Visit Provider Surgery
PROC: 0DTE0ZZ Resection of Large Intestine, Open Approach (ICD-10-PCS; principal; 2023-03-15 07:45)
DX: K56.699 Other intestinal obstruction unspecified as to partial versus complete obstruction (principal); E78.5 Hyperlipidemia, unspecified; I10 Essential (primary) hypertension; K21.9 Gastro-esophageal reflux disease without esophagitis; Z20.822 Contact with and (suspected) exposure to COVID-19
CPT/HCPCS: 44204; 82962; 97116; 97162; 97165; 97535; C9290; J1100; J1170; J1650; J2405; J2543; J2704; J3010

== ENCOUNTER 2023-05-13 05:12 | Inpatient (IN) | payer OTHER, SELFPAY ==
[2023-03-15 14:21] VITALS: BMI 23.8
[2023-05-13] VITALS (15 sets, daily range): BP systolic 130–155; BP diastolic 53–74; PULSE 70–118; RESP 16–28; TEMP 35.7–36.6; O2SAT 93–99; BMI 23.8
--- NOTE | 2023-05-13 05:28 | ED_ITS ---
HPI - General Adult General Chief complaint: Abdominal Pain Stated complaint: abd pain, n/v/d Time Seen by Provider: 05/13/23 05:15 Source: patient Mode of arrival: Ambulatory Limitations: no limitations History of Present Illness HPI narrative: patient is a 72-year-old female. Has had a history of. Is also dive rticulitis. Less than 2 months ago 0 she had a colon resection secondary to strictures. She is been doing well since the procedure. Earlier this week she started to feel like she was constipated. She contacted the general surgeon who started her on MiraLax. She states that she does feel distended. Is not passing flatus. Is having some loose stool. Is having nausea and vomiting. No fevers. No urinary symptoms. Related Data Home Medications Medication Instructions Recorded Confirmed rosuvastatin 10 mg tablet (Crestor) 10 mg PO DAILY ##0 07/17/17 04/28/23 estradiol 0.5 mg tablet 0.5 mg PO DAILY 06/21/22 04/28/23 losartan 50 mg tablet 50 mg PO DAILY 06/21/22 04/28/23 amlodipine 2.5 mg tablet 2.5 mg PO DAILY 10/04/22 04/28/23 pantoprazole 40 mg tablet,delayed 40 mg PO DAILY 10/04/22 04/28/23 release potassium chloride 20 mEq 20 meq PO DAILY 10/04/22 04/28/23 tablet,extended release Previous Rx's Medication Instructions Recorded docusate sodium 100 mg capsule 100 mg PO BID #10 caps 03/18/23 oxycodone 5 mg tablet 5 mg PO Q3H PRN Pain, Moderate 03/18/23 (4-6) #20 tabs loperamide 2 mg capsule 2 mg PO BID PRN loose stool #90 05/02/23 caps Allergies Allergy/AdvReac Type Severity Reaction Status Date / Time Sulfa (Sulfonamide AdvReac Intermediate GENERAL Verified 04/28/23 09:25 Antibiotics) ILL FEELING [SULFA (SULFONAMIDE ANTIBIOTICS)] Review of Systems Constitutional Constitutional: Reports system reviewed and no additional complaints, except as documented Gastrointestinal Gastrointestinal: Reports system reviewed and no additional complaints, except as documented Genitourinary Genitourinary: Reports system reviewed and no additional complaints, except as documented Integumentary/Breasts Skin/Breast: Reports system reviewed and no additional complaints, except as documented Patient History Medical History CKD (chronic kidney disease), stage III COVID-19 (09/2020) Dilation of esophagus Diverticulosis GERD (gastroesophageal reflux disease) History of multiple miscarriages HTN (hypertension) Hyperlipidemia Surgical History History of bladder surgery History of hysterectomy Hx of colectomy (10/12/22) Hx of dilation and curettage Hx of tubal ligation Social History household members: spouse Smoking Status: Never smoker alcohol intake: current Smoking Status: Never smoker alcohol intake frequency: a few times a week Substance Use Type: does not use Exam Initial Vital Signs Initial Vital Signs: Vital Signs Temperature 97.5 F L 05/13/23 05:30 Pulse Rate 85 05/13/23 05:30 Respiratory Rate 19 05/13/23 05:30 Blood Pressure 136/74 05/13/23 05:30 Pulse Oximetry 98 05/13/23 05:30 Oxygen Delivery Method Room Air 05/13/23 05:30 Const General: cooperative, comfortable and No ill appearing HENTX Head: normal to inspection and normocephalic Resp Effort & Inspection: normal respiratory effort Cardio Rate: regular rate GI Inspection: distended Palpation: soft, No firm and No tender Skin General: no rashes or lesions noted Neuro General: patient alert, patient awake and moves all extremities Extrem General: normal to inspection and capillary refill normal Course Orders Ordered: ED Orders 05/13/23 05:30 Complete Blood Count AUTO DIFF Stat Comprehensive Metabolic Panel Stat Lipase Stat 05/13/23 06:05 CT abdomen pelvis wo con Stat Sodium Chloride (Normal Saline 0.9%) 1,000 mls @ 500 mls/hr IV BOLUS ONE Stop: 05/13/23 08:08 Last Admin: 05/13/23 06:45 Dose: 500 mls/hr Documented By: KEATON Vital Signs Vital signs: Vital Signs - 8 hr 05/13/23 05:30 Temperature 97.5 F L Pulse Rate 85 Respiratory Rate 19 Blood Pressure 136/74 Pulse Oximetry 98 Oxygen Delivery Method Room Air Medical Decision Making Lab Data 05/13/23 05:30 05/13/23 05:30 Labs: Lab Results 05/13/23 05/13/23 Range/Units 05:30 05:30 WBC 13.1 H (4.5-11.0) X10^3/uL RBC 4.69 (4.0-5.2) X10^6/uL Hgb 14.3 (12.0-16.0) g/dL Hct 42.8 (36-46) % MCV 91.1 (80-100) fL MCH 30.5 (26-34) PG MCHC 33.4 (30-36) % RDW 13.1 (11.6-14.8) % Plt Count 351 (150-400) X10^3/uL Neut % (Auto) 76.7 H (50-75) % Lymph % (Auto) 17.3 L (25-40) % [place] % (Auto) 5.5 (3-14) % Eos % (Auto) 0.2 L (2-4) % Baso % (Auto) 0.3 (0-2) % Neut # (Auto) 81195 H (2038-2452) /uL Lymph # (Auto) 2300 (4827-1026) /uL [place] # (Auto) 700 (0-900) /uL Eos # (Auto) 0 (0-450) /uL Baso # (Auto) 0 (0-100) /uL Sodium 133 L (137-145) mmol/L Potassium 4.2 (3.4-5.1) mmol/L Chloride 103 (98-107) mmol/L Carbon Dioxide 19 L (22-32) mmol/L BUN 27 H (7-17) mg/dL Creatinine 1.81 H (0.52-1.04) mg/dL Estimated GFR 30 L (>60) mL/min BUN/Creatinine Ratio 14.9 (6-22) Glucose 177 H (80-110) mg/dL Calcium 9.8 (8.4-10.2) mg/dL Total Bilirubin 1.0 (0.2-1.3) mg/dL AST 33 (14-36) IU/L ALT 39 H (<35) IU/L Alkaline Phosphatase 109 (38-126) U/L Total Protein 7.7 (6.3-8.2) g/dL Albumin 4.4 (3.5-5.0) g/dL Globulin 3.3 (1.7-4.1) g/dL Albumin/Globulin Ratio 1.3 (1.0-2.8) Lipase 38 (23-300) U/L [facility] Narrative Medical decision making narrative: has had multiple prior abdominal surgeries with bowel resections. Has had constipation for about a week we really over the past 24 hours increasing abdominal distention with nausea. She declined the need for nausea pain medication upon my initial evaluation. Her labs are unremarkable. CT scan of the abdomen pelvis ordered. Care turned over to Dr. Euceda to follow-up and disposition based on results of CT scan. Discharge Plan Departure Prescriptions: No Action rosuvastatin [Crestor] 10 MG tablet 10 mg PO DAILY Qty: 0 loperamide 2 mg capsule 2 mg PO BID PRN (Reason: loose stool) Qty: 90 0RF losartan 50 mg tablet 50 mg PO DAILY estradiol 0.5 mg tablet 0.5 mg PO DAILY amlodipine 2.5 mg Tablet 2.5 mg PO DAILY pantoprazole 40 mg Tablet,Delayed Release (Dr/Ec) 40 mg PO DAILY potassium chloride 20 mEq Tablet Extended Release 20 meq PO DAILY docusate sodium 100 mg Capsule 100 mg PO BID Qty: 10 0RF oxycodone 5 mg Tablet 5 mg PO Q3H PRN (Reason: Pain, Moderate (4-6)) Qty: 20 0RF Referrals: Carmencita Ordaz PA-C [Primary Care Provider] -
[2023-05-13 05:46] LABS: Add Manual Diff / Slide Review NO; Basophils Absolute Auto 0 /uL (0-100); Basophils Percent Auto 0.3 % (0-2); Eosinophils Absolute Auto 0 /uL (0-450); Eosinophils Percent Auto 0.2 % (2-4); Hematocrit 42.8 % (36-46); Hemoglobin 14.3 g/dL (12.0-16.0); Lymphocytes Absolute Auto 2300 /uL (1100-4500); Lymphocytes Percent Auto 17.3 % (25-40); Mean Corpuscular HGB Conc 33.4 % (30-36); Mean Corpuscular Hemoglobin 30.5 PG (26-34); Mean Corpuscular Volume 91.1 fL (80-100); Monocytes Absolute Auto 700 /uL (0-900); Monocytes Percent Auto 5.5 % (3-14); Neutrophils Absolute Auto 10100 /uL (1500-7000); Neutrophils Percent Auto 76.7 % (50-75); Platelet Count 351 X10^3/uL (150-400); Red Blood Cell Count 4.69 X10^6/uL (4.0-5.2); Red Cell Distribution Width 13.1 % (11.6-14.8); White Blood Cell Count 13.1 X10^3/uL (4.5-11.0)
[2023-05-13 05:51] LABS: Albumin 4.4 g/dL (3.5-5.0); Albumin Globulin Ratio 1.3 (1.0-2.8); Alkaline Phosphatase 109 U/L (38-126); Aspartate Aminotransferase 33 IU/L (14-36); BUN Creatinine Ratio 14.9 (6-22); Blood Urea Nitrogen 27 mg/dL (7-17); Calcium 9.8 mg/dL (8.4-10.2); Carbon Dioxide 19 mmol/L (22-32); Chloride 103 mmol/L (98-107); Estimated Glomerular Filt Rate 30 mL/min (>60); Globulin 3.3 g/dL (1.7-4.1); Glucose 177 mg/dL (80-110); HEMOLYSIS < 15 (0-50); Lipase 38 U/L (23-300); Potassium 4.2 mmol/L (3.4-5.1); Sodium 133 mmol/L (137-145); Total Protein 7.7 g/dL (6.3-8.2)
[2023-05-13 05:59] LABS: Alanine Aminotransferase 39 IU/L (<35)
--- NOTE | 2023-05-13 06:05 | DI.CT.S_ITS ---
PROCEDURE: CT ABDOMEN PELVIS WO CON INDICATIONS: Generalized abdominal pain with distention eval for the ob TECHNIQUE: Axial sections were acquired from the lung bases to the pubic symphysis. Coronal and sagittal reformats were performed. For radiation dose reduction, the following was used: automated exposure control, adjustment of mA and/or kV according to patient size. COMPARISON: None. FINDINGS: Image quality: Excellent. Lung bases: Moderate hiatal hernia.. Heart: No significant findings. URINARY: Right Kidney: No stones or hydronephrosis. Right Ureter: No hydroureter. Left Kidney: 3 millimeter nonobstructing stone. Left Ureter: No hydroureter. Bladder: Normal wall thickness. No stones. ABDOMEN: Liver: Unremarkable. Gallbladder: Unremarkable. Biliary ducts: Unremarkable. Pancreas: Unremarkable. Spleen: Unremarkable. Adrenal Glands: Unremarkable. Stomach and Bowel: Prior partial colectomy, surgical anastomosis in the deep pelvis. There is moderate distension the colon, containing air and fluid. Borderline distension of the small bowel. Peritoneum: Diffuse mesenteric edema. Small volume free fluid. Ventral Wall: No hernia. Abdominal Nodes: No enlarged retroperitoneal or mesenteric lymph nodes. Vessels: Aorta and inferior vena cava are normal in size. PELVIS: Pelvic Organs: Unremarkable. Pelvic Nodes: Unremarkable. Miscellaneous: No inguinal hernias are seen. Bones: Unremarkable. IMPRESSION: Prior partial colectomy. Gas and fluid distention of the large bowel and borderline distention of the small bowel. Findings favor adynamic ileus over distal obstruction. Superimposed diarrheal illness not excluded. Diffuse mesenteric edema, presumably from recent surgery, less likely peritonitis. Nonobstructing left-sided nephrolithiasis. Agree with preliminary report. Dictated by: Jeanmarie Marsh M.D. on 05/13/2023 at 7:54 Approved by: Jeanmarie Marsh M.D. on 05/13/2023 at 7:58
[2023-05-13] MEDS: SODIUM CHLORIDE 0.9% 1,000 ML 500 ML IV (06:45)
[2023-05-13 09:03] LABS: RBC Urine 0-1/HPF (0-5/HPF); WBC Urine 0-1/HPF (0-5/HPF)
[2023-05-13 09:04] LABS: Amorphous Sediment Urine 2+; Bacteria Urine Moderate (10-30); Squamous Epithelial Cell Urine 5-10 /HPF (0-5/HPF)
[2023-05-13 09:05] LABS: Culture Indicated Urine Cult Not Indicated
--- NOTE | 2023-05-13 09:45 | PC.NURSE ---
Addendum entered by Dominique Tavera R.N. 05/13/23 18:06: Pt ok'ed for clear liquids, though pt unable to tolerate much more than water. Emesis x 3. Zofran, reglan and scopalamine patch given this shift. Milk of magnesia: patient drank three-quarters of the dose - vomited 2 hours later. Mineral oil enema x 2. Ducolax suppository given. Pt had multiple small watery dark brown stools after enemas and ducolax. 1 very small semi-formed, loose stool. Pt has D51/2 NS running at 100. MD Gilbert aware of pt's status. Plan is to continue to try and clear out colon. Will continue to monitor. Original Note: Day shift: Pt admitted to floor from ED at 0930. Pt reporting periodic stabbing/cramping pain in lower abdomen. She states it feels like gas, but is not having any flatus. She states the pain lasts for approximately 6 seconds and then it subsides. She does not want to take any pain medication at this time. Spoke with MD Gilbert who stated he will order IV fluids and NPO diet - sips and chips ok. Will continue to monitor.
[2023-05-13] MEDS: DEXTROSE 5%-0.45% NS 1,000 ML 100 ML IV ×2 (11:17→21:18)
[2023-05-13] MEDS: MINERAL OIL 1 EACH ENEMA PR ×2 (11:21→17:48)
[2023-05-13] MEDS: ONDANSETRON 4 MG/2 ML INJ IV (11:21)
--- NOTE | 2023-05-13 11:25 | PM.HP.1 ---
History of Present Illness History of Present Illness Date Patient Seen: 05/13/23 Time Patient Seen: 11:25 Chief complaint: abd pain, n/v/d Narrative: Christa Corral is a 72 year old woman well known to me who is a history of complicated diverticular disease with stricturing status post sigmoid colectomy. Most recent operation was 2 months ago. She presented to the emergency department at [facility] yesterday 05/12/23 with complaint of severe abdominal pain with associated bloating nausea and emesis. At admission afebrile, WBC 13, creatinine elevated at 1.[address] abdomen pelvis demonstrates mildly date dilated small bowel with a dilated and stool-filled colon all the way down the level of the rectum. No free air. Mildly inflamed mesenteric nodes. For the past several days she is had increasing feelings of constipation with initially some occasional diarrhea under the no diarrhea or flatus for the past 24 hours. [facility] Medical History CKD (chronic kidney disease), stage III COVID-19 (09/2020) Dilation of esophagus Diverticulosis GERD (gastroesophageal reflux disease) History of multiple miscarriages HTN (hypertension) Hyperlipidemia Surgical History History of bladder surgery History of hysterectomy Hx of colectomy (10/12/22) Hx of dilation and curettage Hx of tubal ligation Social History household members: spouse Smoking Status: Never smoker alcohol intake: current Meds Home Medications and Allergies Home Medications Medication Instructions Recorded Confirmed Type rosuvastatin 10 mg tablet (Crestor) 10 mg PO DAILY ##0 07/17/17 04/28/23 History estradiol 0.5 mg tablet 0.5 mg PO DAILY 06/21/22 04/28/23 History losartan 50 mg tablet 50 mg PO DAILY 06/21/22 04/28/23 History amlodipine 2.5 mg tablet 2.5 mg PO DAILY 10/04/22 04/28/23 History pantoprazole 40 mg tablet,delayed 40 mg PO DAILY 10/04/22 04/28/23 History release potassium chloride 20 mEq 20 meq PO DAILY 10/04/22 04/28/23 History tablet,extended release docusate sodium 100 mg capsule 100 mg PO BID #10 caps 03/18/23 04/28/23 Rx oxycodone 5 mg tablet 5 mg PO Q3H PRN Pain, Moderate 03/18/23 04/28/23 Rx (4-6) #20 tabs loperamide 2 mg capsule 2 mg PO BID PRN loose stool #90 05/02/23 05/02/23 Rx caps Allergies Allergy/AdvReac Type Severity Reaction Status Date / Time Sulfa (Sulfonamide AdvReac Intermediate GENERAL Verified 04/28/23 09:25 Antibiotics) ILL FEELING [SULFA (SULFONAMIDE ANTIBIOTICS)] Exam Vital Signs (past 8 hours): - 05/13/23 05:30 05/13/23 05:23 05/13/23 05:23 Temperature 97.5 F L Pulse Rate 85 98 H Respiratory Rate 19 19 Blood Pressure 136/74 144/72 H Pulse Oximetry 98 98 Oxygen Delivery Method Room Air 05/13/23 05:30 05/13/23 05:30 05/13/23 06:00 Temperature Pulse Rate 92 H Respiratory Rate 21 Blood Pressure 138/69 142/63 H Pulse Oximetry 98 Oxygen Delivery Method Room Air 05/13/23 06:00 05/13/23 06:30 05/13/23 06:43 Temperature Pulse Rate 89 92 H Respiratory Rate 22 22 Blood Pressure 155/66 H Pulse Oximetry 94 94 Oxygen Delivery Method 05/13/23 06:43 05/13/23 07:00 05/13/23 07:00 Temperature Pulse Rate 90 80 Respiratory Rate 18 21 Blood Pressure 147/65 H Pulse Oximetry 97 96 Oxygen Delivery Method 05/13/23 07:30 05/13/23 07:30 05/13/23 08:00 Temperature Pulse Rate 72 Respiratory Rate 16 Blood Pressure 130/61 149/67 H Pulse Oximetry 97 Oxygen Delivery Method 05/13/23 08:00 05/13/23 08:33 05/13/23 09:00 Temperature Pulse Rate 70 118 H 74 Respiratory Rate 24 28 H Blood Pressure Pulse Oximetry 99 99 97 Oxygen Delivery Method Oxygen Delivery Method Room Air Objective Labs 05/13/23 05:30 05/13/23 05:30 Labs: Laboratory Results - last 24 hr 05/13/23 05/13/23 05/13/23 05:30 05:30 08:42 WBC 13.1 H RBC 4.69 Hgb 14.3 Hct 42.8 MCV 91.1 MCH 30.5 MCHC 33.4 RDW 13.1 Plt Count 351 Neut % (Auto) 76.7 H Lymph % (Auto) 17.3 L Jack % (Auto) 5.5 Eos % (Auto) 0.2 L Baso % (Auto) 0.3 Neut # (Auto) 38421 H Lymph # (Auto) 2300 Jack # (Auto) 700 Eos # (Auto) 0 Baso # (Auto) 0 Sodium 133 L Potassium 4.2 Chloride 103 Carbon Dioxide 19 L BUN 27 H Creatinine 1.81 H Estimated GFR 30 L BUN/Creatinine Ratio 14.9 Glucose 177 H Calcium 9.8 Total Bilirubin 1.0 AST 33 ALT 39 H Alkaline Phosphatase 109 Total Protein 7.7 Albumin 4.4 Globulin 3.3 Albumin/Globulin Ratio 1.3 Lipase 38 Urine RBC 0-1/hpf Urine WBC 0-1/hpf Ur Squamous Epith Cells 5-10 /hpf H Amorphous Sediment 2+ Urine Bacteria Moderate (10-30) H Ur Culture Indicated? Cult not indicated Assessment & Plan Assessment and plan (1) Bowel obstruction: Status: Acute Assessment & Plan narrative: 72-year-old woman 2 months status post sigmoid colectomy for diverticular stricture who is admitted with a bowel obstruction. CT abdomen pelvis personally reviewed demonstrates mild small-bowel obstruction, colon is distended with dense stool, no free air. I reviewed her workup and findings and explained to her that she has impaction but not a mechanical obstruction. Constipation -okay for sips of clears -mineral oil followed by bisacodyl suppository. Acute kidney injury -IV fluid resuscitation, creatinine 1.8 today from baseline of 1.2 will recheck tomorrow
[2023-05-13] MEDS: BISACODYL 10 MG SUPP PR (12:14)
[2023-05-13] MEDS: MAGNESIUM HYDROXIDE 30 ML UDC 60 ML PO (15:25)
[2023-05-13] MEDS: METOCLOPRAMIDE 10 MG/2 ML INJ IV (17:57)
[2023-05-13] MEDS: SCOPOLAMINE 1 PATCH TOP (17:57)
[2023-05-13] MEDS: SENNOSIDES 8.6 MG TABLET PO (20:16)
[2023-05-14 04:56] VITALS: BP 134/61; PULSE 62; RESP 16; TEMP 36.2; O2SAT 97
[2023-05-14] MEDS: DEXTROSE 5%-0.45% NS 1,000 ML 100 ML IV ×2 (07:46→17:29)
[2023-05-14 08:00] VITALS: BP 136/58; PULSE 60; RESP 16; TEMP 36.3; O2SAT 95
[2023-05-14] MEDS: SENNOSIDES 8.6 MG TABLET PO ×2 (09:37→19:58)
[2023-05-14] MEDS: METOCLOPRAMIDE 10 MG/2 ML INJ IV ×3 (09:38→22:32)
--- NOTE | 2023-05-14 10:56 | CM.DANOTE ---
DCP: Case received, EMR reviewed and met with patient. Introduced self and role. Was able to obtain information regarding patient's baseline activity level prior to hospitalization. DCP assessment completed with information currently available. Patient is a 72 year old female who admitted yesterday morning to the care of the hospitalist team. PCP: Carmencita Slater, Payer: [employer]. Patient came to the hospital via private vehicle secondary to having increased abdominal pain. Patient has history of diverticulits, having increased discomfort in her lower abdomen, constipation, small amounts of diarrhea. Patient was noted to have mild small-bowel obstruction, possible illieus. She notes impaction, has received enema. Met with patient in her room. She is alert and oriented, pleasant. She was sitting up in bed. Confirmed that she resides here in [place] with her spouse, Nolan. She is independent at her baseline. Patient confirmed that she has been here before for colectomy. P: DCP to continue to follow. Plan is home when deemed medically stable. Ann Marie Camara RN/Biostatistics Professor Discharge Planning/Care Management Discharge Assessment Start: 05/14/23 10:55 Freq: Status: Active Protocol: Document 05/14/23 10:55 (Rec: 05/14/23 10:56 [id number]) Discharge Planning Assessment Assigned Panel Laminator Ann Marie Camara RN/Biostatistics Professor Advance Directives? Yes Advance Directives on File Yes History Provided By Patient,Medical Record Prior Living Arrangements House Household Members spouse Type of transporation used prior to Drives own vehicle admit Independent with ADL's Yes Is patient alert and oriented? Yes Caregiver for Another No Comment None identified at this time. Home w/spouse expected upon medical clearance Discharge Plan Home Transportation Arrangement Family Referrals Initiated None needed Additional Comment CM team will plan to follow closely Whiteboard Updated in Patient Room with Yes name and ext. # of Panel Laminator Review Status In Process Next Review Type Continued Stay Review
--- NOTE | 2023-05-14 11:50 | P.PN_ITS ---
Subjective Subjective Date Patient Seen: 05/14/23 Time Patient Seen: 11:50 Interval history: Nausea and emesis with milk of magnesia yesterday. Received multiple gandhi ppositories without significant improvement. Feeling uncomfortable /bloated Exam Vital Signs (past 8 hours): - 05/14/23 04:56 05/14/23 08:00 Temperature 97.1 F L 97.4 F L Pulse Rate 62 60 Respiratory Rate 16 16 Blood Pressure 134/61 136/58 L Pulse Oximetry 97 95 Oxygen Flow Rate 0 0 Oxygen Delivery Method Room Air Oxygen Flow Rate 0 Narrative Exam Narrative: General adult woman alert oriented no distress Abdomen distended discomfort no peritonitis. Objective Labs 05/13/23 05:30 05/13/23 05:30 [facility] Medical History CKD (chronic kidney disease), stage III COVID-19 (09/2020) Dilation of esophagus Diverticulosis GERD (gastroesophageal reflux disease) History of multiple miscarriages HTN (hypertension) Hyperlipidemia Surgical History History of bladder surgery History of hysterectomy Hx of colectomy (10/12/22) Hx of dilation and curettage Hx of tubal ligation Social History household members: spouse Smoking Status: Never smoker alcohol intake: current Assessment & Plan Assessment and plan (1) Adynamic ileus: Status: Acute Assessment & Plan narrative: 72-year-old woman admitted for management of a adynamic ileus. CT abdomen pelvis reviewed demonstrates no evidence of ron bowel obstruction however the colon is distended and stool filled. -clear liquids as tolerated -tap water and mineral oil enema - p.o. Dulcolax -if above measures are unsuccessful she may need therapeutic colonoscopy. Quality VTE Deep Vein Thrombosis/Pulmonary Embolism Present on Admission: No
[2023-05-14 12:00] VITALS: BP 131/51; PULSE 63; RESP 17; TEMP 36; O2SAT 100
[2023-05-14] MEDS: BISACODYL 5 MG TABLET 10 MG PO (12:18)
[2023-05-14 16:00] VITALS: BP 160/56; PULSE 69; RESP 18; TEMP 36.1; O2SAT 97
[2023-05-14] MEDS: polyethylene glycoL 3350 17 GM POWD.PACK PO (17:07)
[2023-05-14] MEDS: ONDANSETRON 4 MG/2 ML INJ IV (17:07)
--- NOTE | 2023-05-14 17:41 | PC.NURSE ---
Day shift: Pt's abdomen continues to be tender, distended in both lower quadrants, and she has absent bowel tones in lower quadrants and hypoactive bowel sounds in both upper quadrants. MD Gilbert used red rubber catheter and then a small chest tube and 60cc syringe to flush patient's colon/rectum to encourage bowel movement. Flushed with warm water and mineral oil multiple times. Pt tolerated relatively well. Then gave patient bisacodyl PO. Pt started to have small liquid stools approximately 2 hours after given PO bisacodyl. Pt had periodic nausea this shift - IV Reglan and zofran given. Scopolamine patch still in place. Pt attempting to sip on miralax mixed with prune juice. Pt has been able to tolerate only ice chips by mouth most of the shift. Will continue to monitor.
[2023-05-14 20:14] VITALS: BP 137/63; PULSE 71; RESP 16; TEMP 36.9; O2SAT 95
[2023-05-15] VITALS (7 sets, daily range): BP systolic 127–161; BP diastolic 60–73; PULSE 64–76; RESP 16–22; TEMP 36.3–37.2; O2SAT 95–98
[2023-05-15] MEDS: DEXTROSE 5%-0.45% NS 1,000 ML 100 ML IV ×3 (03:04→22:26)
[2023-05-15] MEDS: METOCLOPRAMIDE 10 MG/2 ML INJ IV ×3 (06:42→21:54)
--- NOTE | 2023-05-15 06:58 | PC.NURSE ---
Pt abdomen was soft at the beginning, this am abdomen was more distended. pt c/o nausea and cramping. Pt received reglan ivp twice tonight. pt ambulated in the hallway this am with nurse assistance.
[2023-05-15] MEDS: BISACODYL 5 MG TABLET 10 MG PO (09:53)
[2023-05-15] MEDS: SENNOSIDES 8.6 MG TABLET PO (09:53)
[2023-05-15] MEDS: ONDANSETRON 4 MG/2 ML INJ IV (09:53)
--- NOTE | 2023-05-15 11:05 | PM.PN.1 ---
Subjective Subjective Date Patient Seen: 05/15/23 Time Patient Seen: 11:05 Interval history: Admitted for obstipation, H/o sigmoid colon resection x2, first for diverticulitis and the 2nd for long sigmoid stricture. Liquid stools and small amount of gas passing. Nauseated and anything she take po makes her gag. Exam Vital Signs (past 8 hours): - 05/15/23 04:22 05/15/23 08:00 Temperature 98 F 98.3 F Pulse Rate 68 64 Respiratory Rate 16 17 Blood Pressure 130/66 150/63 H Pulse Oximetry 98 95 Oxygen Flow Rate 0 0 Oxygen Delivery Method Room Air Oxygen Flow Rate 0 Const General: cooperative Nutritional Appearance: average body habitus Orientation: alert, awake and oriented x3 HENMT Head: normocephalic and atraumatic Eyes General: appearance normal, both eyes and all related structures Sclera: sclerae normal Neck Neck: trachea midline Resp Effort & Inspection: normal respiratory effort and able to speak in complete sentences Cardio Rate: regular rate Rhythm: regular rhythm GI Inspection: distended Palpation: soft Objective Labs 05/13/23 05:30 05/13/23 05:30 [facility] Medical History CKD (chronic kidney disease), stage III COVID-19 (09/2020) Dilation of esophagus Diverticulosis GERD (gastroesophageal reflux disease) History of multiple miscarriages HTN (hypertension) Hyperlipidemia Surgical History History of bladder surgery History of hysterectomy Hx of colectomy (10/12/22) Hx of dilation and curettage Hx of tubal ligation Social History household members: spouse Smoking Status: Never smoker alcohol intake: current Assessment & Plan Assessment & Plan narrative: I have concerns for another stricture at the anastomosis given the failure to open up with enemas and po laxatives. CT scan reviewed. Also, it has been some time since she had real nutrition. Plan: NPO for flex sig tomorrow with balloon dilation if needed. Simethicone for bloat. PIC line and TPN. Discussed with Dr. Gilbert that we pull her previous pathology specimen and see if vasculitis is an underlying issue. Time Spent With Patient Time with patient: 30 to 49 minutes with 50% spent counseling/coordinating care Quality VTE Deep Vein Thrombosis/Pulmonary Embolism Present on Admission: No
--- NOTE | 2023-05-15 14:13 | DI.RAD.S_ITS ---
PROCEDURE: XR CHEST FOR PICC 1V INDICATIONS: verify PICC COMPARISON: None. FINDINGS: PICC was placed by the intravenous therapy team from the right side. Fluoroscopic spot film demonstrates the tip of PICC projecting to the area of SVC right atrial junction. IMPRESSION: Tip of PICC projects to the area of SVC right atrial junction. Dictated by: Juanito Atwood M.D. on 05/15/2023 at 15:09 Approved by: Juanito Atwood M.D. on 05/15/2023 at 15:09
--- NOTE | 2023-05-15 15:29 | DIET.CONS ---
Dietary Consultation Note Admission Date: 05/13/2023 07:57 Assessment: 72y F admitted for n/v/d with likely stricture of anastamosis from bowel resection in March 2023. Referred to nutrition per TPN collaborative protocol. RD met with pt and spouse at bedside after placement of PICC line for TPN. Pt states she weighs herself daily and has maintained body weight 125-129# for the past 10y, pt in this range today. Pt had one week of slightly reduced intake with accompanying alternating constipation and diarrhea. For the past 3d pt has been unable to tolerate oral intake with N/V. Pt on continuous 100mL IVF containing 5% dextrose for past 2d in hospital, tolerating well. Potassium 4.2. Plan to take to OR tomorrow for stricture. Recc initiating continuous TPN running at 42mL/h total volume 1L Clinimix E starting at 1800 tonight with 250mL IVFE and 100mg thiamine. Pt moderate risk for refeeding syndrome, recc refeeding labs bid for 3d, repleting per protocol. Ht: 154.94 cm Wt: 57.153 kg BMI: 23.8 UBW: 57kg Last BM: 05/15/23 (05/15/23 12:18) MNA: 9 Sajan Score: 21 Diet: 05/13/23 Lunch Clear Liquid Diet Diet Modifications: 05/16/23 00:01 NPO Diet Diet Modifications: NPO Type: NPO except for Meds Nutrition Percent Meal Consumed 0% 05/15/23 09:22 Labs: RBC 4.69 X10^6/uL (4.0-5.2) 05/13/23 05:30 Hgb 14.3 g/dL (12.0-16.0) 05/13/23 05:30 Hct 42.8 % (36-46) 05/13/23 05:30 Creatinine 1.81 mg/dL (0.52-1.04) H 05/13/23 05:30 Monitoring/Evaluations: TPN advancement considered daily based on clinical picture. Electronically Signed by: Kenna Almaguer 05/15/23 15:29 Clinical Dietitian [address] [id number]
[2023-05-15] MEDS: AA 5 %/CALCIUM/LYTES/DEXT 20 % 1,000 ML with MULTIVITAMIN 10 ML, TRACE ELEMENTS 1 ML, T... 42.167 ML IV (18:01)
--- NOTE | 2023-05-15 18:56 | PC.NURSE ---
Day shift: Pt's abdomen continues to be tender, distended and absent bowel sounds. MD Cope at bedside this AM to discuss plan. Pt has had several small liquid BMs this shift. Nausea and emesis still present. Pt received PICC line this afternoon in R upper arm. Now has Clinimix TPN running. Plan for colonoscopy tomorrow. Pt OOB ambulating as tolerated, walking has been encouraged. Will continue to monitor.
[2023-05-16] VITALS (15 sets, daily range): BP systolic 136–182; BP diastolic 57–90; PULSE 72–116; RESP 15–22; TEMP 36.3–37.1; O2SAT 92–100; BMI 23.8
--- NOTE | 2023-05-16 | DI.RAD.S_ITS ---
PROCEDURE: XR ABDOMEN 1V INDICATIONS: POST PROCEDURE, ABDOMINAL PAIN TECHNIQUE: One supine view of the abdomen acquired. COMPARISON: None. FINDINGS: Surgical changes and devices: None. Bowel: Gaseous distension of the colon present without evidence of obstruction. No radiographic evidence of free air Soft tissues: No suspicious abdominal calcifications. Visualized solid organ contours appear normal in size. Bones: No suspicious bony lesions. IMPRESSION: Single supine view of the abdomen shows no radiographic evidence of free. Approved by: Lawrence Estevez M.D. on 05/16/2023 at 12:19
[2023-05-16] MEDS: ONDANSETRON 4 MG/2 ML INJ IV (01:09)
[2023-05-16 06:34] LABS: Add Manual Diff / Slide Review NO; Basophils Absolute Auto 0 /uL (0-100); Basophils Percent Auto 0.1 % (0-2); Eosinophils Absolute Auto 0 /uL (0-450); Eosinophils Percent Auto 0.5 % (2-4); Hematocrit 35.4 % (36-46); Hemoglobin 12.3 g/dL (12.0-16.0); Lymphocytes Absolute Auto 700 /uL (1100-4500); Lymphocytes Percent Auto 10.9 % (25-40); Mean Corpuscular HGB Conc 34.9 % (30-36); Mean Corpuscular Hemoglobin 31.2 PG (26-34); Mean Corpuscular Volume 89.5 fL (80-100); Monocytes Absolute Auto 1000 /uL (0-900); Monocytes Percent Auto 16.4 % (3-14); Neutrophils Absolute Auto 4500 /uL (1500-7000); Neutrophils Percent Auto 72.1 % (50-75); Platelet Count 228 X10^3/uL (150-400); Red Blood Cell Count 3.95 X10^6/uL (4.0-5.2); White Blood Cell Count 6.3 X10^3/uL (4.5-11.0)
[2023-05-16 06:39] LABS: Magnesium 1.8 mg/dL (1.6-2.3); Phosphorous 3.1 mg/dL (2.8-4.1)
[2023-05-16 06:46] LABS: Prealbumin 21.9 mg/dL (17.6-36.0)
[2023-05-16] MEDS: METOCLOPRAMIDE 10 MG/2 ML INJ IV ×2 (06:54→15:06)
[2023-05-16] MEDS: DEXTROSE 5%-0.45% NS 1,000 ML 100 ML IV (08:29)
--- NOTE | 2023-05-16 10:24 | PC.NURSE ---
Pt to OR for colonoscopy via w/c by OR transfer personnel
[2023-05-16] MEDS: LACTATED RINGERS 1,000 ML 84 ML IV (10:35)
--- NOTE | 2023-05-16 11:11 | P.PN_ITS ---
Subjective Subjective Date Patient Seen: 05/16/23 Time Patient Seen: 11:11 Interval history: No significant improvement over the past 24 hours. She continues to have abdominal bloating and discomfort passage of only small amount of liquid stool. Exam Vital Signs (past 8 hours): - 05/16/23 06:05 05/16/23 09:06 05/16/23 10:29 Temperature 98 F 98.1 F 98.1 F Pulse Rate 83 72 89 Respiratory Rate 18 18 16 Blood Pressure 173/90 H 182/77 H 157/73 H Pulse Oximetry 95 100 93 Oxygen Delivery Method Room Air Oxygen Flow Rate 0 0 Oxygen Delivery Method Room Air Oxygen Flow Rate 0 Narrative Exam Narrative: General adult woman alert oriented no acute distress Abdomen distended no peritonitis. Objective Labs 05/16/23 05:40 05/13/23 05:30 Labs: Laboratory Results - last 24 hr 05/16/23 05/16/23 05:40 05:40 WBC 6.3 RBC 3.95 L Hgb 12.3 Hct 35.4 L MCV 89.5 MCH 31.2 MCHC 34.9 RDW 13.0 Plt Count 228 Neut % (Auto) 72.1 Lymph % (Auto) 10.9 L [place] % (Auto) 16.4 H Eos % (Auto) 0.5 L Baso % (Auto) 0.1 Neut # (Auto) 4500 Lymph # (Auto) 700 L [place] # (Auto) 1000 H Eos # (Auto) 0 Baso # (Auto) 0 Phosphorus 3.1 Magnesium 1.8 Prealbumin 21.9 PFSH Medical History CKD (chronic kidney disease), stage III COVID-19 (09/2020) Dilation of esophagus Diverticulosis GERD (gastroesophageal reflux disease) History of multiple miscarriages HTN (hypertension) Hyperlipidemia Surgical History History of bladder surgery History of hysterectomy Hx of colectomy (10/12/22) Hx of dilation and curettage Hx of tubal ligation Social History household members: spouse Smoking Status: Never smoker alcohol intake: current Assessment & Plan Assessment and plan (1) Adynamic ileus: Status: Acute Assessment & Plan narrative: Lengthy discussion with the patient today in regards to her status. I explained to her that I think it is quite likely that she is developed a recurrent colonic stricture. The underlying etiology of her stricture formation remains unclear. Spoke with Dr. Shanna rubio pathology yesterday is going to pull her tissue for reexamination in particular for underlying vasculitis. I think the only reasonable option at this point is to proceed with sigmoidoscopy today with li moises dilation of anastomotic stricture. I explained to the patient that this procedure carries risk in particular of colonic perforation. Should this occur I explained that I would speak with her before proceeding with surgery but it would likely entail repair of the perforation with a diverting ileostomy is I do not think is reasonable to perform another resection. Her questions have been answered and she is in agreement with this plan. She provides her written and verbal consent to proceed. Quality VTE Deep Vein Thrombosis/Pulmonary Embolism Present on Admission: No
--- NOTE | 2023-05-16 12:12 | P.OP.COLON_ITS ---
Operative Date/Time/Diagnoses Date of procedure: 05/16/23 Time of procedure: 12:12 Pre-op diagnosis: Anastomotic stricture Post-op diagnosis: same Procedure & Clinicians Study performed: Sigmoidoscopy and dilation of anastomotic stricture Same procedure as scheduled: Yes Indications: 72-year-old woman who has a history of complicated diverticular disease. She initially underwent a sigmoid resection for diverticular stricture and within 2 months she had developed a recurrent stricture. She underwent a 2nd resection of that stricture and with an approximally 1 month she is now back in the hospital for obstructive disease. She is taken the operating room today for sigmoidoscopy with dilation of anastomotic stricture. Surgeon: Ismael Gilbert Procedure Notes Procedure in detail: Patient was brought to the procedure room. General anesthesia was do she was intubated with an endotracheal tube. She was then placed in the left lateral decubitus position. Time-out performed. The EGD scope was inserted into the anus and advanced forward. At approximately 15 cm from the verge the anastomosis was visualized. Was an end-to-side anastomosis. The stump was examined was normal. The anastomosis was open by proximally 5 mm. It was str icture was limited just to the area of the anastomosis the surrounding tissue above and below the anastomosis were normal. This point we placed a guidewire through the stricture and then started with the 12 mm balloon dilator. This was gradually inflated and 12 mm was held. We then upsized to 18-20 mm with the same process and she tolerated this well. Next a the Savary dilator up to 60 [place] was placed across the anastomosis. She tolerated this well was extubated and transferred to recovery in stable condition. Findings: other findings (Anastomotic stricture opening 5 mm 15 cm from verge dilated to 60 [place] with Savary) Specimen(s): none sent Impression: Anastomotic stricture Post-procedure Plan for aftercare: Abdominal x-ray PACU. Return to lim Disposition: Acute Care
--- NOTE | 2023-05-16 13:27 | PC.NURSE ---
Pt back to room 211 via stretcher. Awake, alert, and oriented. No nausea or shortness of breath. Abdomen soft but puffy/mildly distended. Pt denies pain, nausea, or shortness of breath. Bed alarm on for safety. Pt agrees to call for assistance as needed.
[2023-05-16 13:57] LABS: BUN Creatinine Ratio 14.5 (6-22); Blood Urea Nitrogen 16 mg/dL (7-17); Calcium 8.8 mg/dL (8.4-10.2); Carbon Dioxide 25 mmol/L (22-32); Chloride 99 mmol/L (98-107); Estimated Glomerular Filt Rate 54 mL/min (>60); Glucose 117 mg/dL (80-110); HEMOLYSIS < 15 (0-50); Potassium 2.8 mmol/L (3.4-5.1); Sodium 132 mmol/L (137-145)
--- NOTE | 2023-05-16 14:39 | DIET.CONS2 ---
Dietary Inpatient Consultation Note Admission Date: 05/13/2023 07:57 Pt tolerated 1L Clinimix TPN overnight. BG 115 but K+ dropped from 4.2 to 2.8, however pt was in TREVA which has resolved. Recc continuing 1L Clinimix tonight and bump up to goal of 1.5L tomorrow if still showing signs of PO intolerance. Diet: 05/16/23 Dinner Full Liquid Diet Diet Modifications: Nutrition Percent Meal Consumed 0% 05/15/23 18:55 Percent Meal Consumed 0% 05/15/23 18:00 Percent Meal Consumed 0% 05/15/23 09:22 Electronically Signed by: Kenna Almaguer 05/16/23 14:39 Clinical Dietitian [address] [id number]
[2023-05-16] MEDS: SIMETHICONE 80 MG TABLET PO (16:15)
[2023-05-16] MEDS: POTASSIUM CHLORIDE IN WATER 10 MEQ/100 ML PIGGYBACK 100 MEQ IV ×3 (16:16→23:22)
[2023-05-16] MEDS: SCOPOLAMINE 1 PATCH TOP (16:16)
[2023-05-16] MEDS: PANTOPRAZOLE DR 20 MG TABLET 40 MG PO (18:44)
[2023-05-17 00:17] VITALS: BP 136/65; PULSE 85; RESP 18; TEMP 36.9; O2SAT 94
[2023-05-17] MEDS: POTASSIUM CHLORIDE IN WATER 10 MEQ/100 ML PIGGYBACK 100 MEQ IV ×7 (00:31→15:29)
[2023-05-17] MEDS: ONDANSETRON 4 MG/2 ML INJ IV ×2 (02:02→09:40)
[2023-05-17] MEDS: METOCLOPRAMIDE 10 MG/2 ML INJ IV ×2 (05:55→22:13)
[2023-05-17 06:05] VITALS: BP 155/65; PULSE 74; RESP 18; TEMP 37; O2SAT 94
--- NOTE | 2023-05-17 06:28 | PC.NURSE ---
Pt vomited 300ml dark green liquid, fecal smelling. Reglan given, pt stated 'feels better' Dr. Cope called and made aware, order changed from PO protonix to IV protonix now.
[2023-05-17 06:40] LABS: Magnesium 1.7 mg/dL (1.6-2.3)
[2023-05-17] MEDS: PANTOPRAZOLE 40 MG VIAL IV (06:51)
[2023-05-17 07:06] LABS: BUN Creatinine Ratio 15.2 (6-22); Blood Urea Nitrogen 17 mg/dL (7-17); Carbon Dioxide 23 mmol/L (22-32); Chloride 101 mmol/L (98-107); Estimated Glomerular Filt Rate 53 mL/min (>60); Glucose 118 mg/dL (80-110); HEMOLYSIS < 15 (0-50); Sodium 132 mmol/L (137-145)
[2023-05-17 08:00] VITALS: BP 133/66; PULSE 75; RESP 16; TEMP 37.1; O2SAT 93
[2023-05-17] MEDS: MAGNESIUM SULFATE 2 GM/50 ML PIGGYBACK IV (09:38)
[2023-05-17] MEDS: DEXTROSE 10 % IN WATER 1,000 ML 100 ML IV (09:38)
--- NOTE | 2023-05-17 10:22 | P.PN_ITS ---
Subjective Subjective Date Patient Seen: 05/17/23 Time Patient Seen: 10:22 Interval history: Interval-colonoscopy yesterday demonstrated significant stenosis of the colonic anastomosis which was dilated to 60 Polish. Overnight emesis but continued passage of large volume of liquid stool. Abdominal pain has resolved Exam Vital Signs (past 8 hours): - 05/17/23 06:05 05/17/23 08:00 Temperature 98.6 F 98.8 F Pulse Rate 74 75 Respiratory Rate 18 16 Blood Pressure 155/65 H 133/66 Pulse Oximetry 94 93 Oxygen Flow Rate 0 Oxygen Delivery Method Room Air Oxygen Flow Rate 0 Narrative Exam Narrative: General adult woman alert oriented no distress Abdomen distended but compressible nontender Objective Labs 05/16/23 05:40 05/17/23 06:10 Labs: Laboratory Results - last 24 hr 05/16/23 05/17/23 05/17/23 13:23 06:10 06:10 Sodium 132 L 132 L Potassium 2.8 L D 3.0 L Chloride 99 101 Carbon Dioxide 25 23 BUN 16 17 Creatinine 1.10 H 1.12 H Estimated GFR 54 L 53 L BUN/Creatinine Ratio 14.5 15.2 Glucose 117 H 118 H Calcium 8.8 9.0 Magnesium 1.7 PFSH Medical History CKD (chronic kidney disease), stage III COVID-19 (09/2020) Dilation of esophagus Diverticulosis GERD (gastroesophageal reflux disease) History of multiple miscarriages HTN (hypertension) Hyperlipidemia Surgical History History of bladder surgery History of hysterectomy Hx of colectomy (10/12/22) Hx of dilation and curettage Hx of tubal ligation Social History household members: spouse Smoking Status: Never smoker alcohol intake: current Assessment & Plan Assessment and plan (1) Anastomotic stricture of colorectal region: Status: Acute Assessment & Plan narrative: 72-year-old woman 1 day status post dilation of rectal anastomotic stricture. -sips of clears -continue TPN -replete hypokalemia -follow-up pathology evaluation of prior colonic resections for rule out vasculitis Quality VTE Deep Vein Thrombosis/Pulmonary Embolism Present on Admission: No
[2023-05-17 12:47] VITALS: BP 135/62; PULSE 65; RESP 16; TEMP 37; O2SAT 95
[2023-05-17 16:00] VITALS: BP 138/59; PULSE 72; RESP 16; TEMP 36.9; O2SAT 97
[2023-05-17] MEDS: AA 5 %/CALCIUM/LYTES/DEXT 20 % 1,000 ML with MULTIVITAMIN 10 ML, TRACE ELEMENTS 1 ML, T... 43.25 ML IV (18:46)
[2023-05-17] MEDS: FAT EMULSIONS 50 GM/250 ML EMULSION IV (18:48)
[2023-05-17 20:00] VITALS: BP 147/49; PULSE 62; RESP 18; TEMP 36.9; O2SAT 95
[2023-05-18 00:44] VITALS: BP 138/64; PULSE 64; RESP 16; TEMP 36.8; O2SAT 97
[2023-05-18] MEDS: ONDANSETRON 4 MG/2 ML INJ IV ×4 (03:07→18:19)
[2023-05-18 04:16] VITALS: BP 135/57; PULSE 66; RESP 18; TEMP 36.7; O2SAT 96
[2023-05-18] MEDS: PANTOPRAZOLE DR 40 MG TABLET PO (05:02)
--- NOTE | 2023-05-18 05:06 | PC.NURSE ---
Requested to take her Pantoprazole 40 mg. PO, while she's not nauseous. Will monitor.
[2023-05-18 06:10] LABS: Magnesium 2.4 mg/dL (1.6-2.3)
[2023-05-18 06:11] LABS: BUN Creatinine Ratio 18.3 (6-22); Blood Urea Nitrogen 19 mg/dL (7-17); Calcium 8.6 mg/dL (8.4-10.2); Carbon Dioxide 20 mmol/L (22-32); Chloride 102 mmol/L (98-107); Estimated Glomerular Filt Rate 57 mL/min (>60); Glucose 178 mg/dL (80-110); HEMOLYSIS 16 (0-50); Potassium 3.4 mmol/L (3.4-5.1); Sodium 130 mmol/L (137-145)
[2023-05-18 08:00] VITALS: BP 130/57; PULSE 62; RESP 16; O2SAT 95
[2023-05-18] MEDS: METOCLOPRAMIDE 10 MG/2 ML INJ IV ×2 (08:23→14:48)
[2023-05-18] MEDS: POTASSIUM CHLORIDE IN WATER 10 MEQ/100 ML PIGGYBACK 100 MEQ IV ×2 (11:49→13:02)
[2023-05-18] MEDS: DEXTROSE 10 % IN WATER 1,000 ML 100 ML IV (11:50)
[2023-05-18 12:00] VITALS: BP 140/58; PULSE 58; RESP 16; TEMP 36.8; O2SAT 98
--- NOTE | 2023-05-18 13:16 | DI.CT.S_ITS ---
PROCEDURE: CT ABDOMEN PELVIS WO CON INDICATIONS: abd pain TECHNIQUE: Noncontrast 5 mm thick sections acquired from the diaphragms to the symphysis. 5 mm coronal and sagittal reformats were then performed. For radiation dose reduction, the following was used: automated exposure control, adjustment of mA and/or kV according to patient size. COMPARISON: [facility], CT, CT ABDOMEN PELVIS WO CON, 05/13/2023, 6:34. FINDINGS: Image quality: Excellent. ABDOMEN: Lung bases: Small right and trace left pleural effusions are increased compared to prior. The heart is normal in size. Solid organs: Liver is normal in size. Gallbladder is within normal limits . Pancreas is normal in contours. Spleen is normal in size. No adrenal nodules. Kidneys are normal in size, without hydronephrosis. Stable 3 millimeter left nonobstructing renal stone. Peritoneum and bowel: Redemonstration of partial colectomy with reanastomosis in the deep pelvis. There are distended and fluid-filled loops of colon proximal to this which is mildly improved compared to prior. However, dilated fluid-filled loops of small bowel are increased compared to prior measuring up to approximately 3.8 centimeters. No transition point is seen. Mild mesenteric stranding is redemonstrated, likely postsurgical. Nodes and vessels: No retroperitoneal or mesenteric adenopathy by size criteria. Aorta and inferior vena cava are normal in caliber. Atherosclerotic vascular calcifications. Miscellaneous: No ventral hernias. Anterior abdominal wall incision. PELVIS: Genitourinary: Bladder wall thickness is normal. Miscellaneous: No inguinal hernias or adenopathy. Bones: No suspicious bony lesions. No vertebral body compression fractures. IMPRESSION: 1. Redemonstration of postsurgical changes from partial colectomy and reanastomosis. Fluid distended loops of large bowel are similar to mildly improved compared to prior. Dilated loops of fluid-filled small bowel are increased compared to prior. No transition point is identified. Differential includes adynamic ileus with obstruction not definitively excluded given increase in small bowel size. 2. New small right and trace left pleural effusions. 3. Mild mesenteric stranding is again seen, likely postsurgical. 4. Stable nonobstructing left renal nephrolithiasis. Dictated by: Joss Hightower M.D. on 05/18/2023 at 14:03 Approved by: Joss Hightower M.D. on 05/18/2023 at 14:10
--- NOTE | 2023-05-18 14:29 | PM.PN.1 ---
Subjective Subjective Date Patient Seen: 05/18/23 Time Patient Seen: 14:29 Interval history: Still having morning emesis and unable to tolerate po. Exam Vital Signs (past 8 hours): Oxygen Delivery Method Room Air Oxygen Flow Rate 0 Narrative Exam Narrative: this distension of the abdomen is markedly improved since dilation of rectosigmoid stricture (at anastomosis) Const General: cooperative and comfortable Nutritional Appearance: average body habitus Objective Labs 05/16/23 05:40 05/18/23 05:07 Labs: Laboratory Results - last 24 hr 05/18/23 05/18/23 05:07 05:07 Sodium 130 L Potassium 3.4 Chloride 102 Carbon Dioxide 20 L BUN 19 H Creatinine 1.04 Estimated GFR 57 L BUN/Creatinine Ratio 18.3 Glucose 178 H Calcium 8.6 Magnesium 2.4 H PFSH Medical History CKD (chronic kidney disease), stage III COVID-19 (09/2020) Dilation of esophagus Diverticulosis GERD (gastroesophageal reflux disease) History of multiple miscarriages HTN (hypertension) Hyperlipidemia Surgical History History of bladder surgery History of hysterectomy Hx of colectomy (10/12/22) Hx of dilation and curettage Hx of tubal ligation Social History household members: spouse Smoking Status: Never smoker alcohol intake: current Assessment & Plan Assessment & Plan narrative: Colonic stricture at the colorectal anastomosis that has been dilated. remains unable to tolerate po Plan: Repeat CT scan to eval for upper GI obstruction or ileus not appreciated clinically. Eval for complications of colonic dilation Time Spent With Patient Time with patient: less than 30 minutes Quality VTE Deep Vein Thrombosis/Pulmonary Embolism Present on Admission: No
[2023-05-18 16:00] VITALS: BP 148/61; PULSE 76; RESP 16; TEMP 36.8; O2SAT 97
[2023-05-18] MEDS: AA 5 %/CALCIUM/LYTES/DEXT 20 % 1,000 ML with MULTIVITAMIN 10 ML, TRACE ELEMENTS 1 ML, T... 43.708 ML IV (17:29)
--- NOTE | 2023-05-18 17:53 | PM.CALLCOV.1 ---
Call Coverage Note Note Date of Patient Contact: 05/18/23 Narrative of Care Provided: I reviewed the CT films and agree that there is persistent fluid filled SB, colonic obstruction is markedly decreased with dilation but still present. No gastric dilation and no profound dilation of SB. C/w ileus. Is hyponatremic on the TPN that could contribute to ileus
[2023-05-18 20:00] VITALS: BP 142/64; PULSE 68; RESP 16; TEMP 36.2; O2SAT 97
[2023-05-19 00:17] VITALS: BP 149/65; PULSE 71; RESP 18; TEMP 36.5; O2SAT 97
[2023-05-19] MEDS: METOCLOPRAMIDE 10 MG/2 ML INJ IV ×2 (00:34→13:07)
[2023-05-19] MEDS: ONDANSETRON 4 MG/2 ML INJ IV ×3 (00:34→18:05)
[2023-05-19] MEDS: PANTOPRAZOLE DR 40 MG TABLET PO (06:17)
[2023-05-19 07:03] VITALS: BP 157/55; PULSE 68; RESP 18; TEMP 36.2; O2SAT 96
[2023-05-19 07:48] LABS: Magnesium 2.1 mg/dL (1.6-2.3)
[2023-05-19 07:49] LABS: BUN Creatinine Ratio 19.1 (6-22); Blood Urea Nitrogen 21 mg/dL (7-17); Carbon Dioxide 19 mmol/L (22-32); Chloride 108 mmol/L (98-107); Estimated Glomerular Filt Rate 54 mL/min (>60); Glucose 129 mg/dL (80-110); HEMOLYSIS < 15 (0-50); Potassium 3.6 mmol/L (3.4-5.1); Sodium 137 mmol/L (137-145)
[2023-05-19] MEDS: SCOPOLAMINE 1 PATCH TOP (10:49)
--- NOTE | 2023-05-19 11:09 | PM.PNPO.1 ---
Subjective Subjective Date Patient Seen: 05/19/23 Time Patient Seen: 11:09 Interval history: Tolerating some po, no emesis today. Exam Vital Signs (past 8 hours): - 05/19/23 07:03 Temperature 97.2 F L Pulse Rate 68 Respiratory Rate 18 Blood Pressure 157/55 H Pulse Oximetry 96 Oxygen Flow Rate 0 Oxygen Delivery Method Room Air Oxygen Flow Rate 0 Narrative Exam Narrative: no distention, abd soft. Objective Labs 05/16/23 05:40 05/19/23 06:40 Labs: Laboratory Results - last 24 hr 05/19/23 05/19/23 06:40 06:40 Sodium 137 Potassium 3.6 Chloride 108 H Carbon Dioxide 19 L BUN 21 H Creatinine 1.10 H Estimated GFR 54 L BUN/Creatinine Ratio 19.1 Glucose 129 H Calcium 9.0 Magnesium 2.1 PFSH Medical History CKD (chronic kidney disease), stage III COVID-19 (09/2020) Dilation of esophagus Diverticulosis GERD (gastroesophageal reflux disease) History of multiple miscarriages HTN (hypertension) Hyperlipidemia Surgical History History of bladder surgery History of hysterectomy Hx of colectomy (10/12/22) Hx of dilation and curettage Hx of tubal ligation Social History household members: spouse Smoking Status: Never smoker alcohol intake: current Assessment & Plan Post-op Postoperative Procedures: Procedures Operation Date: 05/16/23 11:15 Actual Procedure Side Surgeon p Flexible Sigmoidoscopy with Balloon Dilation Not Applicable Ismael Gilbert MD Postoperative status: doing well Postoperative status narrative: Repeat CT scan shows no bowel blockage. Postoperative plan narrative: Resolved colonic obstruction, still narrowed Hyponatremia corrected today but may have played a role in ileus Appears to be improving, will continue TPN and another day inpatient. Discharge when she can tolerated food. Time Spent With Patient Time with patient: 15-24 minutes Quality VTE Deep Vein Thrombosis/Pulmonary Embolism Present on Admission: No
[2023-05-19 12:00] VITALS: BP 134/61; PULSE 60; RESP 20; TEMP 37; O2SAT 98
--- NOTE | 2023-05-19 16:41 | CM.DPC ---
DCP Cont: Per Surgeon, pt tolerating a little bit of PO and no vomiting today but remains on TPN today for adequate nutrition and bowel blockage seems to be resolving but not medically stable to d/c home yet today. Plan: SW to follow tomorrow to see if pt continues to tolerate advancing diet and to discontinue TPN needs for plan of home with spouse. Yamilex Cruz MSW
[2023-05-19] MEDS: METOCLOPRAMIDE 10 MG/2 ML INJ 5 MG IV (17:36)
[2023-05-19] MEDS: AA 5 %/CALCIUM/LYTES/DEXT 20 % 1,000 ML with MULTIVITAMIN 10 ML, TRACE ELEMENTS 1 ML, T... 43.396 ML IV (17:36)
[2023-05-19] MEDS: FAT EMULSIONS 50 GM/250 ML EMULSION IV (18:06)
[2023-05-19 20:50] VITALS: BP 140/62; PULSE 61; RESP 16; TEMP 36.7; O2SAT 96
[2023-05-20 00:35] VITALS: BP 136/60; PULSE 66; RESP 16; TEMP 37; O2SAT 94
[2023-05-20] MEDS: ONDANSETRON 4 MG/2 ML INJ IV ×2 (02:57→21:18)
[2023-05-20] MEDS: METOCLOPRAMIDE 10 MG/2 ML INJ 5 MG IV ×4 (02:57→18:05)
[2023-05-20 04:51] VITALS: BP 137/53; PULSE 65; RESP 16; TEMP 36.8; O2SAT 94
[2023-05-20] MEDS: PANTOPRAZOLE DR 40 MG TABLET PO (06:17)
[2023-05-20 08:00] VITALS: BP 124/50; PULSE 59; RESP 17; TEMP 36.6; O2SAT 96
[2023-05-20] MEDS: ATORVASTATIN 20 MG TABLET PO (09:46)
[2023-05-20] MEDS: estradioL 1 MG TABLET 0.5 MG PO (09:47)
[2023-05-20] MEDS: LOSARTAN 50 MG TABLET PO (09:47)
[2023-05-20] MEDS: AMLODIPINE 5 MG TABLET 2.5 MG PO (09:48)
--- NOTE | 2023-05-20 10:34 | PM.PN.1 ---
Subjective Subjective Date Patient Seen: 05/20/23 Time Patient Seen: 10:34 Interval history: No emesis today. still not passing a lot of gas or hungry Exam Vital Signs (past 8 hours): - 05/20/23 04:51 Temperature 98.3 F Pulse Rate 65 Respiratory Rate 16 Blood Pressure 137/53 L Pulse Oximetry 94 Oxygen Flow Rate 0 Oxygen Delivery Method Room Air Oxygen Flow Rate 0 Narrative Exam Narrative: abdomen is soft, benign Objective Labs 05/16/23 05:40 05/19/23 06:40 [facility] Medical History CKD (chronic kidney disease), stage III COVID-19 (09/2020) Dilation of esophagus Diverticulosis GERD (gastroesophageal reflux disease) History of multiple miscarriages HTN (hypertension) Hyperlipidemia Surgical History History of bladder surgery History of hysterectomy Hx of colectomy (10/12/22) Hx of dilation and curettage Hx of tubal ligation Social History household members: spouse Smoking Status: Never smoker alcohol intake: current Assessment & Plan Assessment & Plan narrative: Resolving ileus s/p colonic dilation for anastomotic stricture Plan: stop TPN after this bag Time Spent With Patient Time with patient: 30 to 49 minutes with 50% spent counseling/coordinating care Quality VTE Deep Vein Thrombosis/Pulmonary Embolism Present on Admission: No
[2023-05-20 12:00] VITALS: BP 124/45; PULSE 56; RESP 17; TEMP 36.6; O2SAT 98
--- NOTE | 2023-05-20 14:28 | CM.DPC ---
DCP Continued: CHECK OUT CLERK reviewed EMR. Per nursing staff, patient is on a full liquid diet. Per provider note, TPN will stop after this current bag. Plan: patient will d/c home when medically stable/can tolerate a diet. No needs identified at this time. CM team will continue to follow as needed. DEEP Leon
[2023-05-20 17:00] VITALS: BP 120/45; PULSE 70; RESP 17; TEMP 36.2; O2SAT 99
[2023-05-20 20:59] VITALS: BP 122/58; PULSE 71; RESP 16; TEMP 36.3; O2SAT 98
[2023-05-21 00:35] VITALS: BP 114/55; PULSE 64; RESP 16; TEMP 36.8; O2SAT 95
[2023-05-21] MEDS: METOCLOPRAMIDE 10 MG/2 ML INJ 5 MG IV ×2 (01:07→06:21)
[2023-05-21 04:10] VITALS: BP 126/61; PULSE 65; RESP 16; TEMP 36.8; O2SAT 95
[2023-05-21] MEDS: PANTOPRAZOLE DR 40 MG TABLET PO (06:21)
[2023-05-21 08:00] VITALS: BP 129/59; PULSE 67; RESP 17; TEMP 36.2; O2SAT 95
[2023-05-21] MEDS: ATORVASTATIN 20 MG TABLET PO (09:04)
[2023-05-21] MEDS: estradioL 1 MG TABLET 0.5 MG PO (09:04)
[2023-05-21] MEDS: AMLODIPINE 5 MG TABLET 2.5 MG PO (09:04)
[2023-05-21 09:05] VITALS: BP 129/59; PULSE 66
[2023-05-21] MEDS: LOSARTAN 50 MG TABLET PO (09:05)
--- NOTE | 2023-05-21 10:56 | P.PN_ITS ---
Subjective Subjective Date Patient Seen: 05/21/23 Time Patient Seen: 10:56 Interval history: Looks great and is ready to go home Exam Vital Signs (past 8 hours): - 05/21/23 04:10 05/21/23 09:05 05/21/23 08:00 Temperature 98.2 F 97.1 F L Pulse Rate 65 66 67 Respiratory Rate 16 17 Blood Pressure 126/61 129/59 L 129/59 L Pulse Oximetry 95 95 Oxygen Flow Rate 0 0 Oxygen Delivery Method Room Air Oxygen Flow Rate 0 Narrative Exam Narrative: abdomen is soft and benign Objective Labs 05/16/23 05:40 05/19/23 06:40 [facility] Medical History CKD (chronic kidney disease), stage III COVID-19 (09/2020) Dilation of esophagus Diverticulosis GERD (gastroesophageal reflux disease) History of multiple miscarriages HTN (hypertension) Hyperlipidemia Surgical History History of bladder surgery History of hysterectomy Hx of colectomy (10/12/22) Hx of dilation and curettage Hx of tubal ligation Social History household members: spouse Smoking Status: Never smoker alcohol intake: current Assessment & Plan Assessment & Plan narrative: Ready for discharge Plan: Home, F/u [place] in 2 weeks Time Spent With Patient Time with patient: less than 30 minutes Quality VTE Deep Vein Thrombosis/Pulmonary Embolism Present on Admission: No
--- NOTE | 2023-05-21 11:31 | PC.NURSE ---
Pt is A&OX4, VSS, afebrile on RA. She denies n/v and diarrhea. She is tolerating breakfast this a.m. well. She states she is eager to discharge home today. MD Cope at bedside evaluates patient and clears her for discharge home this a.m. with prn germaine and follow up with MD Gilbert in x2 weeks. She verbalizes understanding of diet, medications, worsening symptoms and follow up appointment. She is escorted via w/ch to private vehicle with and all of her belongings at approximately 1100 a.m.
--- NOTE | 2023-05-21 11:36 | CM.DPC ---
DCP Continued: Per nursing staff in rounds, patient will d/c home today. able to tolerate a diet. OXYGEN TANK FILLER entered room and introduced self and role. Patient was accompanied by spouse. Patient reports being excited to go home and no needs. OXYGEN TANK FILLER gave patient copy of IMM rights. Plan: d/c home today with spouse in POV no needs identified at this time. CM team will follow as needed. DEEP Leon
== END 2023-05-21 11:04 | disposition home or self-care (01) | DRG 389 ==
LOC: ED 07:58 → AC 07:58
PROVIDERS: Emergency Medicine; Surgery; Admitting Provider Surgery; Emergency Provider Emergency Medicine; PCP Student in an Organized Health Care Education/Training Program; Referring Provider Emergency Medicine; Visit Provider Surgery
PROC: 0DJD8ZZ Inspection of Lower Intestinal Tract, Via Natural or Artificial Opening Endoscopic (ICD-10-PCS; CPT 45378; principal; 2023-05-16 11:15)
DX: K91.30 Postprocedural intestinal obstruction, unspecified as to partial versus complete (principal); E87.1 Hypo-osmolality and hyponatremia; E87.6 Hypokalemia; E78.5 Hyperlipidemia, unspecified; I10 Essential (primary) hypertension; K21.9 Gastro-esophageal reflux disease without esophagitis
CPT/HCPCS: 36415; 36573; 45340; 74018; 74176; 80048; 80053; 81003; 81015; 82962; 83690; 83735; 84100; 84134; 85025; 99221; 99231; 99238; 99284; B4185; B4189; C9113; J2405; J2704; J2765; J3010; J3475; J3480

== ENCOUNTER → 2023-06-13 08:20 | Outpatient (CLI) | payer OTHER, SELFPAY ==
[2023-05-13 14:55] VITALS: BMI 23.8
--- NOTE | 2023-06-13 | DI.MG.S_ITS ---
BILATERAL DIGITAL SCREENING MAMMOGRAM 3D/2D WITH CAD: 06/13/2023 CLINICAL: Routine screening. Comparison is made to exams dated: 05/14/2022 mammogram, 03/02/2021 mammogram, and 02/27/2020 mammogram - [facility]. Both breasts are heterogeneously dense, which may obscure small masses (category c / 51-75% glandular tissue). Current study was also evaluated with a Computer Aided Detection (CAD) system. There are benign post operative findings in the left breast. No significant masses, calcifications, or other findings are seen in either breast. There has been no significant interval change. IMPRESSION: BENIGN There is no mammographic evidence of malignancy. A 1 year screening mammogram is recommended. Based on the Tyrer Cuzick model (a risk assessment model) the patient's lifetime risk is 6.3% and her 10 year risk is 4.3%. According to the ACR, ACS, and NCCN guidelines, an annual breast MRI exam along with mammogram is recommended if the patient's lifetime risk is 20% or greater. This exam was interpreted at Station ID: [id number]. NOTE: For mammograms, a report in lay terms will be sent to the patient. Approximately 15% of breast malignancies will not be visualized mammographically. In the management of a palpable breast mass, a negative mammogram must not discourage biopsy of a clinically suspicious lesion. Electronically Signed By: Renee bell/ritu:06/13/2023 12:43:31 letter sent: Normal Exam ACR BI-RADS Category 2: Benign Finding(s) 3342F
== END ==
PROVIDERS: PCP Student in an Organized Health Care Education/Training Program; Referring Provider Student in an Organized Health Care Education/Training Program; Visit Provider Student in an Organized Health Care Education/Training Program
DX: Z12.31 Encounter for screening mammogram for malignant neoplasm of breast (principal)
CPT/HCPCS: 77063; 77067

== ENCOUNTER → 2023-06-28 09:31 | Outpatient (CLI) | payer OTHER, SELFPAY ==
[2023-05-13 14:55] VITALS: BMI 23.8
[2023-06-28 11:02] LABS: Hematocrit 37.1 % (36-46); Hemoglobin 12.6 g/dL (12.0-16.0)
[2023-06-28 11:31] LABS: BUN Creatinine Ratio 16.7 (6-22); Blood Urea Nitrogen 20 mg/dL (7-17); Calcium 9.7 mg/dL (8.4-10.2); Carbon Dioxide 25 mmol/L (22-32); Chloride 104 mmol/L (98-107); Estimated Glomerular Filt Rate 48 mL/min (>60); Glucose 116 mg/dL (80-110); HEMOLYSIS < 15 (0-50); Potassium 4.3 mmol/L (3.4-5.1); Sodium 137 mmol/L (137-145)
[2023-06-28 11:40] LABS: Creatinine Urine Random 156.9 mg/dL; Protein (Total) Urine Random 8 mg/dL (0-12); Protein Creatinine Ratio Urine 0.05 GRAM/24H
[2023-06-30 07:52] LABS: Parathyroid Hormone Int 67 pg/mL (15-65)
== END ==
PROVIDERS: PCP Student in an Organized Health Care Education/Training Program; Referring Provider Student in an Organized Health Care Education/Training Program; Visit Provider Student in an Organized Health Care Education/Training Program
DX: N05.9 Unspecified nephritic syndrome with unspecified morphologic changes (principal); D64.9 Anemia, unspecified; N25.81 Secondary hyperparathyroidism of renal origin; R80.9 Proteinuria, unspecified
CPT/HCPCS: 36415; 80048; 82570; 83970; 84156; 85014; 85018

== ENCOUNTER → 2023-11-09 09:13 | Outpatient (CLI) | payer OTHER, SELFPAY ==
[2023-05-13 14:55] VITALS: BMI 23.8
[2023-11-09 10:15] LABS: Hematocrit 35.7 % (36-46); Hemoglobin 12.5 g/dL (12.0-16.0)
[2023-11-09 10:43] LABS: BUN Creatinine Ratio 13.7 (6-22); Blood Urea Nitrogen 18 mg/dL (7-17); Calcium 9.1 mg/dL (8.4-10.2); Carbon Dioxide 24 mmol/L (22-32); Chloride 105 mmol/L (98-107); Estimated Glomerular Filt Rate 43 mL/min (>60); Glucose 107 mg/dL (80-110); HEMOLYSIS < 15 (0-50); Potassium 4.5 mmol/L (3.4-5.1); Sodium 137 mmol/L (137-145)
[2023-11-09 10:52] LABS: Creatinine Urine Random 135.7 mg/dL; Protein (Total) Urine Random 8 mg/dL (0-12); Protein Creatinine Ratio Urine 0.05 GRAM/24H
[2023-11-11 09:36] LABS: Parathyroid Hormone Int 39 pg/mL (15-65)
== END ==
LOC: LAB 09:16
PROVIDERS: PCP Student in an Organized Health Care Education/Training Program; Referring Provider Student in an Organized Health Care Education/Training Program; Visit Provider Student in an Organized Health Care Education/Training Program
DX: N05.9 Unspecified nephritic syndrome with unspecified morphologic changes (principal); D70.9 Neutropenia, unspecified; D63.1 Anemia in chronic kidney disease; N25.81 Secondary hyperparathyroidism of renal origin; R80.9 Proteinuria, unspecified
CPT/HCPCS: 36415; 80048; 82570; 83970; 84156; 85014; 85018

== ENCOUNTER → 2023-12-22 07:43 | Outpatient (CLI) | payer OTHER, SELFPAY ==
[2023-05-13 14:55] VITALS: BMI 23.8
[2023-12-22 09:44] LABS: Cholesterol 277 mg/dL (140-199); HDL Cholesterol 67 mg/dL (40-60); LDL Cholesterol Calculated 174 mg/dL (<100); Triglycerides 180 mg/dL (35-150)
== END ==
PROVIDERS: PCP Family Medicine; Referring Provider Family Medicine; Visit Provider Family Medicine
DX: E78.5 Hyperlipidemia, unspecified (principal)
CPT/HCPCS: 36415; 80061

== ENCOUNTER → 2024-05-07 11:45 | Outpatient (CLI) | payer OTHER, SELFPAY ==
[2023-05-13 14:55] VITALS: BMI 23.8
--- NOTE | 2024-05-07 12:30 | DI.RAD.S_ITS ---
PROCEDURE: XR DEXA AXIAL SKELETON INDICATIONS: asymptomatic age related postmenopausal state COMPARISON: [facility], CR, XR DEXA AXIAL SKELETON, 03/03/2021, 9:58. FINDINGS: Lumbar Spine: Bone mineral density 1.113 g/cm2, T score 0.6, statistically significant increased compared to prior by 9.8 percent. Left Hip: Bone mineral density 0.881 g/cm2, T score -0.5, statistically significant decreased by 3.5 percent. Left Femoral Neck: Bone mineral density 0.647 g/cm2, T score -1.8. Right Hip: Bone mineral density 0.883 g/cm2, T score -0.5, no statistically significant change compared to prior. Right Femoral Neck: Bone mineral density 0.611 g/cm2, T score -2.1. Fracture Risk Calculation (when applicable): 10-year fracture risk of a major osteoporotic fracture 7.6 percent and of a hip fracture 1.8 percent. (T score greater or equal to -1.0 to: NORMAL) (T score from -1.1 to -2.4: OSTEOPENIA) (T score less than or equal to -2.5: OSTEOPOROSIS) IMPRESSION: Low bone mineral density (osteopenia) by WHO classification. Follow-up guidelines as follows: Osteoporosis: Consider a repeat DEXA and Vertebral Fracture Assessment (VFA) exam in 2 years or sooner if medically necessary, to reassess this patient's status. Osteopenia: Consider a repeat DEXA in 2-3 years to reassess this patient's status, or if there is a new clinical indication. Normal: Consider a repeat DEXA in 5 years or sooner, or if there is a new clinical indication. All treatment decisions require clinical judgment and consideration of individual patient factors, including patient preferences, comorbidities, previous drug use, risk factors not captured in the FRAX model (e.g., frailty, falls, vitamin D deficiency, increased bone turnover, interval significant decline in bone density ) and possible under- or over-estimation of fracture risk by FRAX. In addition, the NOF Guide recommends that FDA-approved medical therapies be considered in postmenopausal women and men age >= 50 years with a: * Hip or vertebral (clinical or morphometric) fracture * T-score of <=-2.5 at the spine or hip * Ten-year fracture probability by FRAX of >= 3% for hip fracture or >=20% for major osteoporotic fracture. People with diagnosed cases of osteoporosis or at high risk for fracture should have regular bone mineral density tests. For patients eligible for Medicare, routine testing is allowed once every 2 years. The testing frequency can be increased to one year for patients who have rapidly progressing disease, those who are receiving or discontinuing medical therapy to restore bone mass, or have additional risk factors. Dictated by: Joss Hightower M.D. on 05/07/2024 at 16:29 Approved by: Joss Hightower M.D. on 05/07/2024 at 16:31
== END ==
LOC: RAD 11:46
PROVIDERS: PCP Family Medicine; Referring Provider Family Medicine; Visit Provider Family Medicine
DX: M85.89 Other specified disorders of bone density and structure, multiple sites (principal); Z78.0 Asymptomatic menopausal state
CPT/HCPCS: 77080

== ENCOUNTER → 2024-06-11 07:10 | Outpatient (CLI) | payer OTHER, SELFPAY ==
[2023-05-13 14:55] VITALS: BMI 23.8
[2024-06-11 08:46] LABS: Cholesterol 234 mg/dL (140-199); HDL Cholesterol 85 mg/dL (40-60); LDL Cholesterol Calculated 117 mg/dL (<100); Triglycerides 161 mg/dL (35-150)
== END ==
PROVIDERS: PCP Family Medicine; Referring Provider Family Medicine; Visit Provider Family Medicine
DX: E78.5 Hyperlipidemia, unspecified (principal); I10 Essential (primary) hypertension
CPT/HCPCS: 36415; 80061

== ENCOUNTER → 2024-06-11 16:28 | Outpatient (CLI) | payer OTHER, SELFPAY ==
[2023-05-13 14:55] VITALS: BMI 23.8
[2024-06-11 17:35] LABS: Hematocrit 37.5 % (36-46); Hemoglobin 12.7 g/dL (12.0-16.0)
[2024-06-11 18:03] LABS: BUN Creatinine Ratio 17.4 (6-22); Blood Urea Nitrogen 24 mg/dL (7-17); Calcium 9.6 mg/dL (8.4-10.2); Carbon Dioxide 23 mmol/L (22-32); Chloride 106 mmol/L (98-107); Estimated Glomerular Filt Rate 41 mL/min (>60); Glucose 108 mg/dL (80-110); HEMOLYSIS < 15 (0-50); Potassium 4.3 mmol/L (3.4-5.1); Sodium 137 mmol/L (137-145)
[2024-06-11 18:36] LABS: Creatinine Urine Random 37.24 mg/dL; Protein (Total) Urine Random 11 mg/dL (0-12); Protein Creatinine Ratio Urine 0.29 GRAM/24H
[2024-06-13 09:10] LABS: Parathyroid Hormone Int 64 pg/mL (15-65)
== END ==
PROVIDERS: PCP Family Medicine; Referring Provider Student in an Organized Health Care Education/Training Program; Visit Provider Student in an Organized Health Care Education/Training Program
DX: N05.9 Unspecified nephritic syndrome with unspecified morphologic changes (principal); D70.9 Neutropenia, unspecified; D63.1 Anemia in chronic kidney disease; N25.81 Secondary hyperparathyroidism of renal origin; R80.9 Proteinuria, unspecified; E78.5 Hyperlipidemia, unspecified; I10 Essential (primary) hypertension
CPT/HCPCS: 36415; 80048; 80061; 82570; 83970; 84156; 85014; 85018

== ENCOUNTER → 2024-06-17 08:20 | Outpatient (CLI) | payer MEDICARE, SELFPAY ==
[2023-05-13 14:55] VITALS: BMI 23.8
--- NOTE | 2024-06-17 | DI.MG.S_ITS ---
BILATERAL DIGITAL SCREENING MAMMOGRAM 3D/2D WITH CAD: 06/17/2024 CLINICAL: Routine screening. Comparison is made to exams dated: 06/13/2023 mammogram, 05/14/2022 mammogram, and 03/02/2021 mammogram - [facility]. The breasts are heterogeneously dense, which may obscure small masses (category c / 51-75% glandular tissue). Current study was also evaluated with a Computer Aided Detection (CAD) system. There are benign post operative findings in the left breast. No significant masses, calcifications, or other findings are seen in either breast. There has been no significant interval change. IMPRESSION: BENIGN There is no mammographic evidence of malignancy. A 1 year screening mammogram is recommended. Based on the Tyrer Cuzick model (a risk assessment model) the patient's lifetime risk is 6.0% and her 10 year risk is 4.5%. According to the ACR, ACS, and NCCN guidelines, an annual breast MRI exam along with mammogram is recommended if the patient's lifetime risk is 20% or greater. This exam was interpreted at Station ID: [id number]. NOTE: For mammograms, a report in lay terms will be sent to the patient. Approximately 15% of breast malignancies will not be visualized mammographically. In the management of a palpable breast mass, a negative mammogram must not discourage biopsy of a clinically suspicious lesion. Electronically Signed By: Елена Young M.D., Ph.D. lizzie/ritu:06/18/2024 12:05:59 letter sent: Normal Exam ACR BI-RADS Category 2: Benign 3342F
== END ==
PROVIDERS: PCP Family Medicine; Referring Provider Family Medicine; Visit Provider Family Medicine
DX: Z12.31 Encounter for screening mammogram for malignant neoplasm of breast (principal); R92.333 Mammographic heterogeneous density, bilateral breasts
CPT/HCPCS: 77063; 77067

== ENCOUNTER 2024-08-02 11:40 | Day surgery (SDC) | payer OTHER, SELFPAY ==
[2023-05-13 14:55] VITALS: BMI 23.8
[2024-08-02 12:21] VITALS: BP 167/82; PULSE 68; RESP 17; TEMP 36.6; O2SAT 97
--- NOTE | 2024-08-02 12:45 | PM.HP.1 ---
History of Present Illness History of Present Illness Date Patient Seen: 08/02/24 Time Patient Seen: 12:45 Chief complaint: Colonoscopy Narrative: 73F sp sigmoid colectomy for benign disease with a anastamotic stricture. Stricture previously dilated endoscopically. She has developed recurrent symptoms of stricture and here today for endoscopic dilation [facility] Medical History COVID-19 (09/2020) Dilation of esophagus History of multiple miscarriages GERD (gastroesophageal reflux disease) Diverticulosis CKD (chronic kidney disease), stage III Hyperlipidemia HTN (hypertension) Surgical History Hx of colectomy (10/12/22) History of bladder surgery Hx of dilation and curettage Hx of tubal ligation History of hysterectomy Social History marital status: household members: spouse lives independently: Yes occupational status: previously employed Smoking Status: Never smoker alcohol intake: current substance use type: does not use Meds Home Medications and Allergies Home Medications Medication Instructions Recorded Confirmed Type losartan 50 mg tablet 50 mg PO DAILY 06/21/22 08/02/24 History potassium chloride 20 mEq 20 meq PO DAILY 10/04/22 08/02/24 History tablet,extended release pravastatin 40 mg tablet 40 mg PO BEDTIME #90 tabs 12/29/23 08/02/24 Rx estradiol 0.5 mg tablet 0.5 mg PO DAILY #100 tabs 04/29/24 08/02/24 Rx metronidazole 1 % topical gel 1 applic topical DAILY PRN rosacea 05/03/24 08/02/24 Rx #60 grams pantoprazole 40 mg tablet,delayed 40 mg PO DAILY #90 tabs 05/09/24 08/02/24 Rx release amlodipine 2.5 mg tablet 2.5 mg PO DAILY #90 tabs 06/27/24 08/02/24 Rx Allergies Allergy/AdvReac Type Severity Reaction Status Date / Time Sulfa (Sulfonamide AdvReac Intermediate GENERAL Verified 06/21/24 10:17 Antibiotics) ILL FEELING [SULFA (SULFONAMIDE ANTIBIOTICS)] Exam Vital Signs (past 8 hours): - 08/02/24 12:21 Temperature 97.9 F Pulse Rate 68 Respiratory Rate 17 Blood Pressure 167/82 H Pulse Oximetry 97 Oxygen Delivery Method Room Air Oxygen Delivery Method Room Air Narrative Exam Narrative: General adult woman alert oriented no acute distress Chest nonlabored respiration Extremities warm well perfused Assessment & Plan Assessment and plan (1) Stricture of sigmoid colon: Status: Acute Assessment & Plan narrative: 73-year-old woman with a anastomotic stricture of the sigmoid colon here for sigmoidoscopy with dilation. Overview of procedure were reviewed. Operative risks including hemorrhage, intestinal injury reviewed. Questions answered she provides her consent to proceed. Time-Based Coding :: [TOTAL MINUTES] spent with patient and on the chart (including review of chart, obtaining history, exam, reviewing outside data, placing orders, documenting exam and treatment plan, and counseling patient) on [DATE].
[2024-08-02 13:39] VITALS: BP 132/67; PULSE 85; RESP 15; TEMP 36.1; O2SAT 96
--- NOTE | 2024-08-02 13:40 | P.OP.COLON_ITS ---
Operative Date/Time/Diagnoses Date of procedure: 08/02/24 Time of procedure: 13:40 Pre-op diagnosis: Anastomotic stricture Procedure & Clinicians Study performed: Sigmoidoscopy Dilation of colonic stricture Same procedure as scheduled: Yes Indications: 73-year-old woman history of colectomy for benign disease with a anastomotic stricture here for endoscopic dilation. Surgeon: Ismael Gilbert Procedure Notes Procedure in detail: The history and physical was performed/updated and the patient is ASA class is 2. The procedure was discussed in detail with the patient. Potential risks complications including infection, bleeding, missed diagnosis, perforation, need for surgery, and were explained. Their questions were answered and informed consent was obtained. Patient was brought to the procedure room and placed standard monitoring equipment. The patient's vital signs were monitored continuously throughout the entire procedure. Prior to starting time-out was performed. The patient was placed in the left lateral recumbent position. Procedural sedation was administered by anesthesia. Examination began with a thorough inspection of the perianal area there was no evidence of fissures, fistulae, external hemorrhoids or cutaneous malignancy. The colonoscopy scope was then placed into the anal canal and was advanced forward. Quality of the prep was poor. Encountered a anastomotic stricture at proximally 15 cm from the verge. It easily acco mmodated the diameter of the colonoscope. We then placed the balloon dilator across the stricture and it was gradually dilated under direct visualization to a maximum of 2 cm. She tolerated the procedure well transferred to recovery in stable condition. Specimen(s): none sent Impression: Anastomotic stricture Post-procedure Plan for aftercare: Follow up as needed Disposition: same day surgery
[2024-08-02 13:43] VITALS: BP 136/72; PULSE 79; RESP 16; O2SAT 96
[2024-08-02 13:47] VITALS: BP 134/89; BP 137/77; PULSE 71; PULSE 74; RESP 14; RESP 20; TEMP 36.1; O2SAT 96; O2SAT 98
== END 2024-08-02 14:11 | disposition home or self-care (01) ==
PROVIDERS: PCP Family Medicine; Referring Provider Surgery; Visit Provider Surgery
PROC: 0DJD8ZZ Inspection of Lower Intestinal Tract, Via Natural or Artificial Opening Endoscopic (ICD-10-PCS; CPT 45378; principal; 2024-08-02 13:00)
DX: K91.30 Postprocedural intestinal obstruction, unspecified as to partial versus complete (principal)
CPT/HCPCS: 45386; J2704

== ENCOUNTER → 2024-12-02 07:33 | Outpatient (CLI) | payer OTHER, SELFPAY ==
[2023-05-13 14:55] VITALS: BMI 23.8
[2024-12-02 08:07] LABS: Hematocrit 37.9 % (36-46); Hemoglobin 12.9 g/dL (12.0-16.0)
[2024-12-02 08:32] LABS: BUN Creatinine Ratio 10.6 (6-22); Blood Urea Nitrogen 17 mg/dL (7-17); Calcium 9.4 mg/dL (8.4-10.2); Carbon Dioxide 24 mmol/L (22-32); Chloride 104 mmol/L (98-107); Estimated Glomerular Filt Rate 34 mL/min (>60); Glucose 104 mg/dL (80-110); HEMOLYSIS < 15 (0-50); Potassium 4.7 mmol/L (3.4-5.1); Sodium 136 mmol/L (137-145)
[2024-12-02 08:52] LABS: Creatinine Urine Random 195.07 mg/dL
[2024-12-02 08:57] LABS: Microalbumin Urine Random 1.3 mg/dL (0-1.6)
[2024-12-03 19:07] LABS: Calcium 9.5 mg/dL (8.7-10.3); Parathyroid Hormone, Intact 95 pg/mL (15-65)
== END ==
PROVIDERS: PCP Family Medicine; Referring Provider Student in an Organized Health Care Education/Training Program; Visit Provider Student in an Organized Health Care Education/Training Program
DX: N05.9 Unspecified nephritic syndrome with unspecified morphologic changes (principal); D70.9 Neutropenia, unspecified; D63.1 Anemia in chronic kidney disease; N25.81 Secondary hyperparathyroidism of renal origin; R80.9 Proteinuria, unspecified
CPT/HCPCS: 36415; 80048; 82043; 82310; 82570; 83970; 85014; 85018

== ENCOUNTER → 2025-01-13 12:12 | Outpatient (CLI) | payer OTHER, SELFPAY ==
[2023-05-13 14:55] VITALS: BMI 23.8
[2025-01-13 12:49] LABS: Hematocrit 36.3 % (36-46); Hemoglobin 12.7 g/dL (12.0-16.0)
[2025-01-13 13:11] LABS: Blood Urea Nitrogen 24 mg/dL (7-17); Calcium 9.5 mg/dL (8.4-10.2); Carbon Dioxide 25 mmol/L (22-32); Chloride 103 mmol/L (98-107); Estimated Glomerular Filt Rate 39 mL/min (>60); Glucose 93 mg/dL (80-110); HEMOLYSIS < 15 (0-50); Potassium 4.2 mmol/L (3.4-5.1); Sodium 136 mmol/L (137-145)
[2025-01-13 13:52] LABS: Creatinine Urine Random 136.85 mg/dL; Protein (Total) Urine Random 8 mg/dL (0-12); Protein Creatinine Ratio Urine 0.05 GRAM/24H
[2025-01-14 08:36] LABS: Parathyroid Hormone Int 65 pg/mL (15-65)
== END ==
PROVIDERS: PCP Family Medicine; Referring Provider Student in an Organized Health Care Education/Training Program; Visit Provider Student in an Organized Health Care Education/Training Program
DX: N05.9 Unspecified nephritic syndrome with unspecified morphologic changes (principal); D70.9 Neutropenia, unspecified; D63.1 Anemia in chronic kidney disease; N25.81 Secondary hyperparathyroidism of renal origin; R80.9 Proteinuria, unspecified
CPT/HCPCS: 36415; 80048; 82570; 83970; 84156; 85014; 85018

== ENCOUNTER → 2025-05-14 07:18 | Outpatient (CLI) | payer OTHER, SELFPAY ==
[2023-05-13 14:55] VITALS: BMI 23.8
[2025-05-14 08:27] LABS: Cholesterol 262 mg/dL (140-199); HDL Cholesterol 59 mg/dL (40-60); Triglycerides 228 mg/dL (35-150)
== END ==
PROVIDERS: PCP Family Medicine; Referring Provider Family Medicine; Visit Provider Family Medicine
DX: E78.5 Hyperlipidemia, unspecified (principal); I10 Essential (primary) hypertension; Z79.899 Other long term (current) drug therapy
CPT/HCPCS: 36415; 80061

== ENCOUNTER → 2025-07-22 09:51 | Outpatient (CLI) | payer OTHER, SELFPAY ==
[2023-05-13 14:55] VITALS: BMI 23.8
[2025-07-22 10:49] LABS: Hematocrit 37.5 % (36-46); Hemoglobin 12.9 g/dL (12.0-16.0)
[2025-07-22 11:34] LABS: Protein (Total) Urine Random < 5 mg/dL (0-12); Protein Creatinine Ratio Urine 0.02 GRAM/24H
[2025-07-22 12:19] LABS: Blood Urea Nitrogen 27 mg/dL (7-17); Calcium 9.5 mg/dL (8.4-10.2); Carbon Dioxide 25 mmol/L (22-32); Chloride 103 mmol/L (98-107); Estimated Glomerular Filt Rate 36 mL/min (>60); Glucose 114 mg/dL (70-99); HEMOLYSIS < 15 (0-50); Potassium 4.3 mmol/L (3.4-5.1); Sodium 135 mmol/L (137-145)
== END ==
PROVIDERS: PCP Family Medicine; Referring Provider Student in an Organized Health Care Education/Training Program; Visit Provider Student in an Organized Health Care Education/Training Program
DX: D70.9 Neutropenia, unspecified (principal); N05.9 Unspecified nephritic syndrome with unspecified morphologic changes; N25.81 Secondary hyperparathyroidism of renal origin; D63.1 Anemia in chronic kidney disease; R80.9 Proteinuria, unspecified
CPT/HCPCS: 36415; 80048; 82570; 83970; 84156; 85014; 85018